=== PATIENT | female | born 1970 | race Caucasian/White ===

== ENCOUNTER 2016-08-07 10:37 | Emergency (ER) | payer MEDICARE, MEDICAID, OTHER ==
[~2016-08-07] VITALS: Ht 160 cm; Wt 115.9 kg
[~2016-08-07 10:37] MED LIST: ALBU8.5H2 INHALATION; ALPR0.254 PO; ASPI-973 PO; ATOR40TA69 PO; FLUT16SP NS; HYDR-4003 PO; HYDR25TA4 PO; INSLIS SUBQ; INSU100V4 SUBQ; LEVO112T4 PO; LISI10TA PO; PREG150C PO; VENL150T3 PO; VENL75CA95 PO
[2016-08-07 10:48] VITALS: BP 126/66; PULSE 101; RESP 12; O2SAT 98
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
[2016-08-07] MEDS ORDERED: IBUP400T22 PO (13:32)
[2016-08-07 14:43] VITALS: BP 109/55; PULSE 97; O2SAT 94
[2016-08-29] MEDS ORDERED: BENZ100C8 PO (12:04)
[2016-08-29] MEDS ORDERED: GABA600T2 PO (12:04)
== END 2016-08-07 13:33 | disposition home or self-care (01) ==
LOC: SED 10:37
DX: M54.2 Cervicalgia (principal); V43.52XA Car driver injured in collision with other type car in traffic accident, initial encounter; Y93.89 Activity, other specified; Y92.410 Unspecified street and highway as the place of occurrence of the external cause; Y99.8 Other external cause status; E11.40 Type 2 diabetes mellitus with diabetic neuropathy, unspecified; E03.9 Hypothyroidism, unspecified; I10 Essential (primary) hypertension; Z79.82 Long term (current) use of aspirin; Z79.4 Long term (current) use of insulin

== ENCOUNTER 2016-08-31 10:43 | Day surgery (SDC) | payer MEDICARE, MEDICAID ==
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
[2016-08-31] VITALS (20 sets, daily range): BP systolic 77–119; BP diastolic 38–95; PULSE 88–99; RESP 12–19; O2SAT 93–99
[~2016-08-31] VITALS: Ht 161.3 cm; Wt 110.8 kg
[~2016-08-31 10:43] MED LIST changes: +BENZ100C8 PO; +CeFAZolin Inj 2 GM in IV Premix 1 EACH IV ONE; +GABA600T2 PO; -PREG150C PO
[2016-08-31] MEDS ORDERED: Lidocaine PF 1% 30 mL Inj ONE (10:44)
[2016-08-31] MEDS ORDERED: fentaNYL-PF 50 mCg/mL 2 mL Inj ONE (10:44)
[2016-08-31] MEDS ORDERED: Glycopyrrolate 0.2 mg/mL 5 mL Inj ONE (10:44)
[2016-08-31] MEDS ORDERED: Rocuronium 10 mg/mL 5 mL Inj ONE (10:44)
[2016-08-31] MEDS ORDERED: Neostigmine 1 mg/mL 5 mL Inj ONE (10:44)
[2016-08-31] MEDS ORDERED: Propofol 10,000 mCg/mL 20 mL Inj ONE (10:44)
[2016-08-31] MEDS ORDERED: EPHEDrine/NS 5 mg/mL 5 mL Syringe ONE (10:44)
[2016-08-31] MEDS ORDERED: Phenylephrine 10,000 mCg/mL Inj ONE (10:44)
[2016-08-31] MEDS ORDERED: Ondansetron 2 mg/mL 2 mL Inj ONE (10:44)
[2016-08-31] MEDS ORDERED: CeFAZolin 2 Gm/50 mL D5W Duplex Bag IV ONE (11:17)
[2016-08-31] MEDS: Lactated Ringer's 1,000 ML IV SCH ×2 (11:46→13:48)
[2016-08-31] MEDS ORDERED: Insulin LISPRO 300 Unit/3 mL Inj ONE (11:59)
[2016-08-31] MEDS ORDERED: Insulin LISPRO 300 Unit/3 mL Inj SUBQ ONE (12:55)
[2016-08-31] MEDS ORDERED: HYDROmorphone 1 mg/mL Inj IVPUSH PRN (13:45)
[2016-08-31] MEDS ORDERED: Atropine 0.4 mg/mL Inj IVPUSH PRN (13:45)
[2016-08-31] MEDS ORDERED: hydrOXYzine Inj 25 MG/1 mL SDV IM PRN (13:45)
[2016-08-31] MEDS ORDERED: Lactated Ringer's 500 ML IV PRN (13:45)
[2016-08-31] MEDS ORDERED: hydrALAZINE 20 mg/mL Inj IVPUSH PRN (13:45)
[2016-08-31] MEDS ORDERED: fentaNYL-PF 50 mCg/mL 2 mL Inj IVPUSH PRN (13:45)
[2016-08-31] MEDS ORDERED: Lactated Ringer's 1,000 ML IV SCH (13:45)
[2016-08-31] MEDS ORDERED: EPHEDrine Sulfate 50 mg/mL Inj IVPUSH PRN (13:45)
[2016-08-31] MEDS ORDERED: Ondansetron 2 mg/mL 2 mL Inj IVPUSH PRN (13:45)
[2016-08-31] MEDS ORDERED: Labetalol 5 mg/mL 4 mL Inj IV PRN (13:45)
[2016-08-31] MEDS ORDERED: EPHEDrine Sulfate 50 mg/mL Inj IM PRN (13:45)
[2016-08-31] MEDS ORDERED: Lidocaine 2%-Epi 1:100,000 20 mL Inj NERVEBLOCK ONE (14:46)
--- NOTE | 2016-08-31 14:54 | CONS ---
[address] [address] CONSULTATION REPORT PATIENT: FILIBERTO ALBARRAN : 1970 MR#: [id number] ADMIT: 08/31/2016 JOB ID: [id number] DATE OF SERVICE: 08/31/2016 REASON FOR CONSULTATION: Difficult catheter placement. I was requested to help with catheter placement in the operating room for Dr. Torres of podiatry procedure. Nursing was unable to place a catheter. Upon arrival into the room, the patient was supine and frog-legged. It was apparent that the patient was quite obese. Her genitals were then prepped and draped in the usual sterile fashion. Parting the labia quite deeply, the urethral meatus was seen. An 18-D[place] Wellington catheter was placed under sterile technique into the patient's bladder and insufflated with 10 cc of sterile water. Clear yellow urine was seen in the Wellington catheter tubing. The catheter was placed to dependent drainage. [facility]
[2016-08-31] MEDS ORDERED: Lactated Ringer's 1,000 ML IV ONE ×2 (17:03→18:55)
[2016-08-31] MEDS ORDERED: oxyCODONE-Acetamin 5-325 mg Tablet PO PRN (17:50)
--- NOTE | 2016-08-31 18:01 | PCM.PODPO ---
Podiatry Operative Report Date of Service: Aug 31, 2016 Date of Service Aug 31, 2016 Pre Operative Diagnosis Lisfranc fracture left lower extremity Charcot foot left lower extremity Post Operative Diagnosis Same as preoperative diagnoses Procedure Open reduction with first tarsometatarsal arthrodesis Surgeon Surgeon: Meng Torres DPM Assistants: None Indication for Procedure Displaced first tarsometatarsal joint second metatarsal joint and third tarsometatarsal joint left foot with multiple metatarsal fractures Findings Stability of the second and third tarsometatarsal joint despite displacement. Severe degeneration of the medial cuneiform Details of Procedure Patient was identified in the preoperative holding area. All preoperative comorbidities and allergies were identified and thoroughly discussed. The patient was transported into the operating room and placed on the operating room table in the normal supine position. The patient was then prepped and draped in the normal aseptic technique. A preoperative block of the left ankle was performed utilizing 2% lidocaine. Attention was first pinned to the dorsal medial aspect of the left mid foot. A linear incision was made overlying the dorsal medial aspect of the first tarsometatarsal joint approximately 6 cm in length. Once the initial skin or subcutaneous neurovascular structures were identified and retracted out of the surgical field. Blunt dissection was carried down with Metzenbaum scissor. Deep fascia was identified. A 15 blade was utilized to incise through deep fascia which was reflected both superiorly and inferiorly exposing the dorsal medial aspect of the first metatarsal base the first tarsal metatarsal joint and the medial cuneiform. The tibialis anterior tendon sheath was identified and retracted proximally out of the surgical field. Inspection of the first tarsometatarsal joint revealed severe articular degeneration with no discernible articular cartilage. Multiple bony fragments were noted floating within the joint and surrounding the periarticular surface. A rongeur was utilized to remove a large portion of the displaced medial aspect of the first metatarsal base. A rongeur was utilized to remove osseous degeneration of the first tarsometatarsal joint and any remaining articular cartilage was debrided. The first metatarsal was distracted and the intercuneiform joint was debrided of fibrous scar tissue with a rongeur. Internal operative C-arm x-ray was utilized to provide visualization and a 3.5 mm cortical screw was placed in lag style fashion from the medial cuneiform to the intermediate cuneiform significant reduction of the intercuneiform joint was noted following screw fixation. Traction was applied to the first metatarsal and attempted reduction of the first tarsometatarsal joint was performed. Significant bony degeneration of the medial cuneiform was noted in the bone surrounding the articular surface was found to be soft. The first metatarsal was placed into adequate position relative to the medial cuneiform and remainder of the forefoot and K wire fixation was utilized to temporarily fixate the joint. The joint was fixated utilizing crossing 3.5 mm partially threaded screws ensuring maintain reduction and good bite. Adequate apposition of the inferior surface of the first tarsometatarsal joint was noted however there is a slight 3 mm gap of the dorsal tarsometatarsal joint due to bony degeneration. Following screw fixation this area was packed with portions of cortical bone which were removed from the medial aspect of the first metatarsal base and appeared to be healthy bleeding bone. At this time the foot was placed through range of motion and no noted gapping of the joint was noted with adequate reduction in the transverse and sagittal plane. No palpable bony prominence could be felt of the first tarsometatarsal joint plantarly. The foot was again placed through range of motion and the second and third tarsometatarsal joint were found to be stable however still significantly displaced. At this time the decision was made to postpone any further procedure to reduce this area as this patient may require a medial column fusion in the future and may not note significant benefit from reduction of the second and third tarsometatarsal joint as she suffers from severe diabetic neuropathy. This wound was copiously flushed with large amounts of normal saline. Deep closure was performed utilizing 2. 0 Vicryl and skin closure was performed utilizing number 3. 0 Prolene. The wound was dressed with Adaptic sterile 4 x 4 gauze and Kerlix the patient was placed into a mildly compressive Villavicencio sterile compression dressing. No combinations occur during this procedure. A pneumatic ankle tourniquet was utilized during this procedure for approximately 109 minutes. Grafts, Implants: Implants-See Implant Record Complications There were no periprocedural complications identified. Condition Stable Anesthetic Administered: GA Catheters: None Output, Estimated Blood Loss: 100 Blood Admin during surgery: No Surgical Cast or Splint: Well-padded Short Leg Splint Surgical Specimen Removed: No Specimen sent to Pathology: No Post Operative Plan Ice and elevate before surgery Strict nonweightbearing left lower extremity Discharge to home when stable Contact office with any questions or concerns regarding care Follow-up in office in 1 week Meng Torres DPM Aug 31, 2016 18:01
[2016-08-31] MEDS ORDERED: Phenylephrine/NS-PF 100 mCg/mL 5 mL Syringe IVPUSH ONE (18:12)
[2016-08-31] MEDS: Phenylephrine 10,000 mCg/mL Inj IVPUSH PRN ×2 (18:15→18:25)
[2016-08-31] MEDS ORDERED: Dexamethasone 4 mg/mL Inj ONE (18:24)
[2016-08-31] MEDS ORDERED: Dexamethasone 4 mg/mL Inj IVPUSH PRN (18:25)
--- NOTE | 2016-08-31 18:28 | PCM.ANEP1 ---
Post Anesthesia Phase 1 PACU Phase 1 Assessment Date of Service: Aug 31, 2016 Vital Signs Vital Signs Date Time Temp Pulse Resp B/P Pulse Ox O2 Delivery O2 Flow Rate FiO2 08/31/16 17:55 36.3 90 16 85/40 99 Nasal Cannula 2 08/31/16 11:04 35.7 99 12 91/59 99 Room Air Anesthetic Administered: GA Level of Alertness: Awake, talking BUITRAGO's with Equal Strength: Yes Pain: No Oxygen Delivery: Room Air Lungs: Clear to Auscultation, Normal Air Movement (FROM) Summary Alondra is awake and talking. No pain or N/V. She is conversant asking how her surgery went. All her vital signs are normal except for her BP is low. Both BP CUFF and A-line vary between high 80 systolic to mid 70's. HR is 91. Davian Camara MD Aug 31, 2016 18:28
--- NOTE | 2016-09-01 07:55 | PCM.ANEP2 ---
Post Anesthesia Evaluation ASA/CMS Post Anesthesia VS in Patient's Normal Range?: Yes Resp Stable; Airway Patent?: Yes CV Function & Hydration Stable: Yes Mental Status Recovered?: Yes Pain control Satisfactory?: Yes N/V Control Satisfactory?: Yes Davian Camara MD Sep 01, 2016 07:55
== END 2016-08-31 23:59 | disposition home or self-care (01) ==
LOC: SAS 10:43
PROVIDERS: ATTEND Podiatrist Foot & Ankle Surgery
PROC: 0SGL04Z Fusion of Left Tarsometatarsal Joint with Internal Fixation Device, Open Approach (ICD-10-PCS; principal; 2016-08-31 12:45)
DX: E10.610 Type 1 diabetes mellitus with diabetic neuropathic arthropathy (principal); S93.325A Dislocation of tarsometatarsal joint of left foot, initial encounter; E10.40 Type 1 diabetes mellitus with diabetic neuropathy, unspecified; Z79.4 Long term (current) use of insulin; E66.9 Obesity, unspecified; Z68.41 Body mass index [BMI] 40.0-44.9, adult; Z79.82 Long term (current) use of aspirin; E03.9 Hypothyroidism, unspecified; E78.5 Hyperlipidemia, unspecified; F41.1 Generalized anxiety disorder; X58.XXXA Exposure to other specified factors, initial encounter
CPT/HCPCS: 28740; 73620; 76001; C1713; J0690; J1100; J1815; J2250; J2370; J2405; J2710; J3010; J7120

== ENCOUNTER 2016-10-08 12:54 | Emergency (ER) | payer MEDICARE, MEDICAID ==
[~2016-10-08] VITALS: Ht 160 cm; Wt 109.1 kg
[~2016-10-08 12:54] MED LIST changes: -CeFAZolin Inj 2 GM in IV Premix 1 EACH IV ONE
[2016-10-08 13:08] VITALS: BP 136/66; PULSE 87; RESP 15; O2SAT 100
--- NOTE | 2016-10-08 14:23 | ED.REPORT ---
HPI-General Illness Date of Service Oct 08, 2016 ED Provider: Kenney Chino MD 46 year old female with a 40 year history of IDDM presents to the ER via EMS after being found unconscious in her vehicle just prior to arrival. EMS reports low blood sugar measured at the scene. She states that she awakened in the ambulance en route with no memory of the syncopal event. Patient denies recent illness, though she states that she has been stressed lately which has caused her blood sugar to decline in the past. Nursing Notes Stated Complaint: LOW BS Chief Complaint: General Complaint Nursing Notes Reviewed: Yes Allergies: Coded Allergies: No Known Allergies (Verified Allergy, Unknown, 08/29/16) Scheduled Aspirin (Aspirin) 81 Mg Tablet 81 MG PO DAILY Atorvastatin Calcium (Atorvastatin Calcium) 40 Mg Tablet 40 MG PO DAILY Benzonatate (Benzonatate) 100 Mg Capsule 100 MG PO TID Fluticasone Propionate (Fluticasone Propionate Nasal) 16 Gm [place].susp 2 SPRAY NS DAILY Gabapentin (Gabapentin) 600 Mg Tablet 1,200 MG PO BID Hydrochlorothiazide (Hydrochlorothiazide) 25 Mg Tablet 25 MG PO DAILY Insulin Detemir (Levemir U100 Insulin Vial) 100 Unit/1 Ml Vial 50 UNITS SUBQ BID Insulin Human Lispro (HumaLOG U100 Insulin Vial) 100 Unit/Ml Unit 10-30 UNITS SUBQ TIDWM Levothyroxine (Levothyroxine) 112 Mcg Tablet 125 MCG PO DAILY Lisinopril (Lisinopril) 10 Mg Tablet 10 MG PO DAILY Venlafaxine ER (Venlafaxine ER) 150 Mg Tab.er.24 150 MG PO DAILY Venlafaxine ER (Venlafaxine ER) 75 Mg Cap.er.24h 75 MG PO DAILY take together with 150mg tab Scheduled PRN Albuterol HFA (Proair HFA) 8.5 Gm Hfa.aer.ad 2 PUFFS INHALATION Q4H PRN PRN PRN Alprazolam (Alprazolam) 0.25 Mg Tablet 0.25 MG PO DAILY PRN PRN For Anxiety Hydrocodone-Acetaminophen 5-325 mg (Hydrocodone-Acetaminophen 5-325 mg) 1 Each Tablet 1 TABLET PO Q6H PRN PRN For Pain General Time Seen by MD: 14:07 Chief Complaint Other (Low Blood Sugar) Hx Obtained From: Patient Arrived By: Ambulance Sudden in Onset?: Yes Onset Occurred: Just prior to arrival Symptom Duration: Since onset Pertinent Negative: Pt denies other symptoms Context Related History: Reports Diabetes mellitus Similar Sx Previous: Yes Past Medical History Past Medical History Notes: frequent ED visits for uncontrolled blood sugar, both hypoglycemia and hyperglycemia, and diabetic ulcers. Past Medical History diabetic ulcers diabetic neuropathy hidradenitis hypothyroidism depression anxiety dyslipidemia Reports: Diabetes mellitus, Hypertension Reports: Obesity Past Surgical History Surgery in June 2015 for infected diabetic ulcer Smoking History Unknown if Ever Smoker Social History Drug Use: Denies drug use Other Social History: Good social support, Local resident Ambulatory Status Independent Review of Systems Full Review of Systems Constitutional: Denies: Chills, Fever Respiratory: Denies: Non-productive cough, Shortness of breath Cardiovascular: Denies: Chest pain GI: Denies: Diarrhea, Nausea, Vomiting Female: Denies: Dysuria, Flank pain, Hematuria, Urinary frequency, Urinary urgency, Urination decreased, Urination increased Neurologic: Reports: Syncope Complete sys rev & neg: except as marked. Physical Exam BP 149/79 Vital Signs Vital Signs Date Time Temp Pulse Resp B/P Pulse Ox O2 Delivery O2 Flow Rate FiO2 10/08/16 13:08 87 15 136/66 100 Room Air Initial VS: Reviewed Head / Eyes: Atraumatic, Normocephalic Neck: Supple, Non-tender, Full range of motion Abdomen / GI: Soft, Non-tender, No guarding, No rebound, No distention Extremities: Vascular intact, Neuro intact, No swelling, No tenderness Skin: Warm, Dry, No cyanosis Neurologic: Alert, Oriented, Nonfocal Psychiatric: Mood/affect normal, Behavior normal, Normal thought content General/Constitutional: Awake, Alert, Well developed, Well nourished Respiratory / Chest: Breath sounds NL, No respiratory distress, No rales, No rhonchi, No wheezing Cardiovascular: Heart rate NL, Regular rhythm, Heart sounds NL, Cap refill not delayed, Peripheral circulation NL Re-Eval/Medical Decision Med Decision/Clinical Course She is awake and alert at this time she has no residual symptoms. She says that she gets like this from time to time and is not concerned that she will be able to manage it at home with someone at home to make sure she is okay. It seems reasonable to me. Source of Hx: Old records Time of Eval: 14:28 Re-Evaluation/Progress Note: Discussed physical exam findings and plan to discharge. Patient is amenable to the plan. Return precautions given. All other questions addressed. Counseled Regarding: Diagnosis, Need for follow-up, When/why to return to ED Discharge & Departure Primary Impression: Hypoglycemia Disposition: Home Discharge Condition All VS Reviewed: Yes Condition: Stable Patient Instructions: Diabetic Hypoglycemia (DC) Additional Instructions: I think it is safe at this time for you to go home. Make sure you monitor your blood sugar levels. You should not be alone for the next 24 hours. Return to the ER if you develop any concerning symptoms. Referrals: Chiqui Dalal (PCP) Donnaibe Attestation Portions of this note were transcribed by Luke Mann. I, Dr. Chino, personally performed the history, physical exam and medical decision-making; I reviewed and confirmed the accuracy of the information in the transcribed note. Signed by: Karley Islas, 10/08/2016 and 14:31 copies to: Chiqui Dalal Kirk H MD Oct 08, 2016 14:23 LUKE MANN Oct 08, 2016 14:30
[2016-10-08 14:58] VITALS: BP 137/61; PULSE 95; RESP 19; O2SAT 100
== END 2016-10-10 14:58 | disposition home or self-care (01) ==
LOC: SED 12:54 → EDUNIT# 12:54 → EDBD 12:54 → SED 10-10 14:58
DX: E11.649 Type 2 diabetes mellitus with hypoglycemia without coma (principal); I10 Essential (primary) hypertension; E11.40 Type 2 diabetes mellitus with diabetic neuropathy, unspecified; E11.622 Type 2 diabetes mellitus with other skin ulcer; L98.499 Non-pressure chronic ulcer of skin of other sites with unspecified severity; E03.9 Hypothyroidism, unspecified; Z79.82 Long term (current) use of aspirin; Z79.4 Long term (current) use of insulin

== ENCOUNTER 2016-12-24 15:51 | Emergency (ER) | payer MEDICARE, MEDICAID ==
[~2016-12-24] VITALS: Ht 160 cm; Wt 101.4 kg
--- NOTE | 2016-12-24 15:53 | ED.REPORT ---
HPI-General Illness Date of Service December 24, 2016 ED Provider: Dr. Cruz Sesay MD Patient is a 46 year old female with a history of type I diabetes mellitus, frequent ED visits for hypoglycemia, diabetic ulcers and neuropathy, hidradenitis, hypothyroidism and dyslipidemia who presents to the ED via EMS following an episode of dizziness that occurred just prior to arrival. Patient was sitting in the waiting room at the dentist's office when she experienced an episode of hypoglycemia and had a near-syncopal event. She reports that she took an extra dose on insulin this morning and had not eaten for several hours prior to the appointment. EMS recorded BS in the 20's in the field. Patient received oral glucose and a glucagon tab en route. Patient was seen in the ED on 10/08 for a similar symptoms and this episode reportedly feels identical to her previous episodes of hypoglycemia. She was being seen at the dentist for dental caries and an abscess that has become increasingly worse over the past few days. Nursing Notes Stated Complaint: HYPOGLYCEMIA Chief Complaint: General Complaint Nursing Notes Reviewed: Yes Allergies: Coded Allergies: No Known Allergies (Verified Allergy, Unknown, 08/29/16) Scheduled Amoxicillin/Clav K 875-125 mg (Augmentin 875-125 mg) 1 Each Tablet 1 TABLET PO BID Aspirin (Aspirin) 81 Mg Tablet 81 MG PO DAILY Atorvastatin Calcium (Atorvastatin Calcium) 40 Mg Tablet 40 MG PO DAILY Benzonatate (Benzonatate) 100 Mg Capsule 100 MG PO TID Fluticasone Propionate (Fluticasone Propionate Nasal) 16 Gm [place].susp 2 SPRAY NS DAILY Gabapentin (Gabapentin) 600 Mg Tablet 1,200 MG PO BID Hydrochlorothiazide (Hydrochlorothiazide) 25 Mg Tablet 25 MG PO DAILY Insulin Detemir (Levemir U100 Insulin Vial) 100 Unit/1 Ml Vial 50 UNITS SUBQ BID Insulin Human Lispro (HumaLOG U100 Insulin Vial) 100 Unit/Ml Unit 10-30 UNITS SUBQ TIDWM Levothyroxine (Levothyroxine) 112 Mcg Tablet 125 MCG PO DAILY Lisinopril (Lisinopril) 10 Mg Tablet 10 MG PO DAILY Venlafaxine ER (Venlafaxine ER) 150 Mg Tab.er.24 150 MG PO DAILY Venlafaxine ER (Venlafaxine ER) 75 Mg Cap.er.24h 75 MG PO DAILY take together with 150mg tab Scheduled PRN Albuterol HFA (Proair HFA) 8.5 Gm Hfa.aer.ad 2 PUFFS INHALATION Q4H PRN PRN PRN Alprazolam (Alprazolam) 0.25 Mg Tablet 0.25 MG PO DAILY PRN PRN For Anxiety Hydrocodone-Acetaminophen 5-325 mg (Hydrocodone-Acetaminophen 5-325 mg) 1 Each Tablet 1 TABLET PO Q6H PRN PRN For Pain General Time Seen by MD: 15:53 Chief Complaint Dizziness Hx Obtained From: Patient, EMS Arrived By: Ambulance Sudden in Onset?: Yes Onset Occurred: Just prior to arrival Symptom Duration: Since onset Location: : Mouth (Dental pain) Quality: Painful Radiation: : Does not radiate Severity: Current: Mild Severity: Maximum: Mild Associated with: Reports: Dizziness, Syncope (near ) Pertinent Negative: Pt denies other symptoms Recent Healthcare: No recent doctor visit, No recent hospitalization Past Medical History Past Medical History Notes: Frequent ED visits for uncontrolled blood sugar, both hypoglycemia and hyperglycemia, and diabetic ulcers. Past Medical History diabetic ulcers diabetic neuropathy hidradenitis hypothyroidism depression anxiety dyslipidemia Reports: Diabetes mellitus, Hypertension Reports: Obesity Past Surgical History Surgery in June 2015 for infected diabetic ulcer Smoking History Unknown if Ever Smoker Social History Drug Use: Denies drug use Other Social History: Good social support, Local resident Ambulatory Status Independent Review of Systems dental pain Full Review of Systems Constitutional: Denies: Chills, Fever Respiratory: Denies: Shortness of breath Neurologic: Reports: Dizziness, Syncope (Near syncope ) Complete sys rev & neg: except as marked. Physical Exam Vital Signs Vital Signs Date Time Temp Pulse Resp B/P Pulse Ox O2 Delivery O2 Flow Rate FiO2 12/24/16 18:02 36.8 94 16 136/58 100 Room Air 12/24/16 16:02 36.6 87 13 107/51 100 Room Air Initial VS: Reviewed Neck: Supple, Non-tender, Full range of motion Extremities: Vascular intact, Neuro intact, No swelling, No tenderness Skin: Warm, Dry, No cyanosis Neurologic: Alert, Oriented, Nonfocal Psychiatric: Mood/affect normal, Behavior normal, Normal thought content General/Constitutional: Awake, Alert, No acute distress Appearance / Presentation: Positive: Obese Head / Eyes: Atraumatic, Normocephalic, PERRL ENT: Atraumatic, Airway patent, Mucous membranes moist, Pharynx NL Dental / Gums: Positive: Dental caries present (Multiple caries present and multiple craters present) ENT: No facial swelling No trismus #6: crater at the gumline with pus draining Respiratory / Chest: Atraumatic, Breath sounds NL, Breath sounds = bilat, No respiratory distress Cardiovascular: Heart rate NL, Regular rhythm, Heart sounds NL Abdomen: Atraumatic, Soft, Non-tender Interpretation & Diagnostics Lab Results Interpretation Test 12/24/16 16:16 Hold Purple Top Tube Received (Received) Hold Red Top Tube Received (Received) Hold [place] Top Tube Received (Received) Re-Eval/Medical Decision Med Decision/Clinical Course Hypoglycemia due to overuse of insulin without eating. Incidentally she has a dental infection with some drainage, I do not see an obvious periapical abscess that would require incision and drainage. She will be started on Augmentin. Her glucoses have been stable for several hours. She feels comfortable going home. Recommend frequent small meals and follow-up closely with dentist and PCP. Return precautions given. Time of Eval: 16:05 Patient Status: Condition improved Re-Evaluation/Progress Note: Patient is rechecked. Symptoms have improved. Will repeat BS. Time of Eval: 17:39 Patient Status: Condition improved Re-Evaluation/Progress Note: Pt is informed of her results and diagnosis. All questions are addressed. She understands and agrees with the intended treatment plan. Counseled Regarding: Diagnosis, Need for follow-up, When/why to return to ED Discharge & Departure Primary Impression: Hypoglycemia Additional Impression: Dental abscess Disposition: Home Discharge Condition All VS Reviewed: Yes Condition: Improved Patient Instructions: Dental Abscess (ED), Dental Caries (ED), Hypoglycemia in a Person with Diabetes (ED) Additional Instructions: Thank you for trusting us with your care this afternoon. Your emergency department evaluation today evaluation indicates your symptoms are likely to do hypoglycemia. This is most likely due to taking an extra dose of your insulin and then not eating today. Please take Augmentin as directed and follow up with your dentist in the next few days to help resolve your dental caries and dental abscess. Schedule a follow up appointment with your primary care physician in the next 2-3 days for a recheck. Please return to the emergency department if you begin to experience any new or worsening symptoms including any sings of infection (fever, chills, swelling, redness, worsening pain), dizziness, shortness of breath or chest pain. Referrals: Chiqui Dalal (PCP) Scribe Attestation Portions of this note were transcribed by Irene Mauro. I, Dr. Sesay personally performed the history, physical exam and medical decision-making; I reviewed and confirmed the accuracy of the information in the transcribed note. Signed by: Karley Jackson, 12/24/16 1968. copies to: Chiqui Dalal Timothy S DO December 24, 2016 15:53 IRENE MAURO December 24, 2016 16:00
[2016-12-24 16:02] VITALS: BP 107/51; PULSE 87; RESP 13; O2SAT 100
[2016-12-24] MEDS ORDERED: Amoxicillin-Clav 875-125 mg Tablet PO ONE (16:25)
[2016-12-24] MEDS ORDERED: AMOX-366 PO (17:45)
[2016-12-24 18:02] VITALS: BP 136/58; PULSE 94; RESP 16; O2SAT 100
[2016-12-24 18:42] VITALS: BP 136/58; PULSE 94; RESP 16; O2SAT 100
== END 2016-12-24 18:44 | disposition home or self-care (01) ==
LOC: EDBD 15:51 → SED 15:51
DX: E10.649 Type 1 diabetes mellitus with hypoglycemia without coma (principal); K04.7 Periapical abscess without sinus; E03.9 Hypothyroidism, unspecified; E78.5 Hyperlipidemia, unspecified; E10.40 Type 1 diabetes mellitus with diabetic neuropathy, unspecified; I10 Essential (primary) hypertension; Z79.82 Long term (current) use of aspirin; Z79.4 Long term (current) use of insulin

== ENCOUNTER 2017-03-20 14:19 | Inpatient (IN) | payer MEDICARE, MEDICAID ==
[~2017-03-20] VITALS: Ht 160 cm; Wt 105.2 kg
[~2017-03-20 14:19] MED LIST changes: +AMOX-366 PO
[2017-03-20 14:44] VITALS: BP 125/78; PULSE 109; RESP 20; O2SAT 97
--- NOTE | 2017-03-20 15:41 | ED.REPORT ---
HPI-Extremity Problem Lower Date of Service Mar 20, 2017 ED Provider: Germania Crandall MD Patient is a 46 year old female with a history of diabetes who presents to the ED complaining of right foot pain for the past three days. Associated symptoms include right foot erythema, swelling, subjective fever and fatigue. Patient reports that she has noticed the white callous on her foot as well, three days ago. She denies nausea. 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 The patient reports that she has had a previous skin infection in her foot two years ago that required surgery. Nursing Notes Stated Complaint: RT FOOT ABSCESS Chief Complaint: Extremity Trauma Nursing Notes Reviewed: Yes Allergies: Coded Allergies: No Known Allergies (Verified Allergy, Unknown, 03/20/17) Scheduled Aspirin (Aspirin) 81 Mg Tablet 81 MG PO DAILY Fluticasone Propionate (Fluticasone Propionate Nasal) 16 Gm [place].susp 2 SPRAY NS DAILY Gabapentin (Gabapentin) 600 Mg Tablet 1,200 MG PO TID Hydrochlorothiazide (Hydrochlorothiazide) 25 Mg Tablet 25 MG PO DAILY Insulin Detemir (Levemir U100 Insulin Vial) 100 Unit/1 Ml Vial 50 UNITS SUBQ BID Insulin Human Lispro (HumaLOG U100 Insulin Vial) 100 Unit/Ml Unit 10-30 UNITS SUBQ TIDWM Levothyroxine (Levothyroxine) 125 Mcg Tablet 125 MCG PO DAILY Venlafaxine ER (Venlafaxine ER) 150 Mg Tab.er.24 150 MG PO DAILY Venlafaxine ER (Venlafaxine ER) 75 Mg Cap.er.24h 75 MG PO DAILY take together with 150mg tab Scheduled PRN Albuterol HFA (Proair HFA) 8.5 Gm Hfa.aer.ad 2 PUFFS INHALATION Q4H PRN PRN PRN Alprazolam (Alprazolam) 0.25 Mg Tablet 0.25 MG PO DAILY PRN PRN For Anxiety General Time Seen by MD: 15:38 Chief Complaint Foot injury right Hx Obtained From: Patient Arrived By: Walk-in Onset Occurred: 3 days ago Symptom Duration: Since onset Location: : Foot right Quality: Painful Severity: Current: Moderate Recent Healthcare: Recent doctor visit Past Medical History Past Medical History Notes: Frequent ED visits for uncontrolled blood sugar, both hypoglycemia and hyperglycemia, and diabetic ulcers. Past Medical History diabetic ulcers diabetic neuropathy hidradenitis hypothyroidism depression anxiety dyslipidemia Reports: Diabetes mellitus, Hypertension Reports: Obesity Past Surgical History Surgery in June 2015 for infected diabetic ulcer Smoking History Unknown if Ever Smoker Social History Drug Use: Denies drug use Other Social History: Good social support, Local resident Ambulatory Status Independent Review of Systems Constitutional: Reports: Fatigue, Fever (subjective), Denies: Chills Musculoskeletal: Reports: Extremity pain (right foot), Extremity swelling ( right foot) Skin: Denies Itching Neurologic: Denies: Numbness, Weakness Complete sys rev & neg: except as marked. Respiratory: Denies: Non-productive cough, Shortness of breath Physical Exam Initial Vital Signs Vital Signs (First) Date Time Temp Pulse Resp B/P Pulse Ox O2 Delivery O2 Flow Rate FiO2 03/20/17 14:44 37.8 109 20 125/78 97 Room Air Initial VS: Reviewed Lower Extremity / Pelvis / MS: Atraumatic, Inspection NL Right Foot: Positive: Erythema present (10cm x 7cm on the dorsum), Swelling present..., Tenderness present... 1cm circular ulceration on the right foot no fluctuance or pus no crepitus General/Constitutional: Awake, Alert Respiratory / Chest: Atraumatic, Breath sounds NL, Breath sounds = bilat, No respiratory distress Cardiovascular: Heart rate NL, Regular rhythm, Heart sounds NL, No murmurs Skin: Warm, Dry Neurologic: Oriented X3, Speech NL Head / Eyes: Atraumatic, Normocephalic, PERRL, EOMI Upper Extremity / MS: Atraumatic, Full range of motion Psychiatric: Affect NL, Mood NL Interpretation & Diagnostics Lab Results Interpretation Result Diagram: 03/20/17 1635 03/20/17 1635 Test 03/20/17 16:35 White Blood Count 19.9th/mm3 (3.8-10.1) Red Blood Count 4.60mil/mm3 (3.90-5.20) Hemoglobin 12.5g/dL (12.0-15.6) Hematocrit 39.2% (35.0-46.0) Mean Corpuscular Volume 85.2fL (81-100) Mean Corpuscular Hemoglobin 27.2pg (27.0-35.0) Mean Corpuscular Hemoglobin Concent 31.9% (32.0-37.0) Red Cell Distribution Width 15.0% (12.3-15.4) Platelet Count 459bil/L (150-400) Neutrophils (%) (Auto) 77.5% (40-74) Lymphocytes (%) (Auto) 12.6% (14-46) Monocytes (%) (Auto) 7.3% (4-12) Eosinophils (%) (Auto) 1.6% (0-5) Basophils (%) (Auto) 0.3% (0-3) Sodium Level 133mEq/L (134-144) Potassium Level 4.7mEq/L (3.5-5.2) Chloride Level 92mEq/L (97-108) Carbon Dioxide Level 26mmol/L (18-29) Blood Urea Nitrogen 15mg/dL (6-24) Creatinine 0.82mg/dL (0.57-1.00) Estimat Glomerular Filtration Rate 107mL/min (>59) Glucose Level 118mg/dL (60-99) Lactic Acid Level 1.8mmol/L (0.4-2.0) Calcium Level 9.3mg/dL (8.5-10.1) Total Bilirubin 0.3mg/dL (0.0-1.2) Aspartate Amino Transf (AST/SGOT) 61U/L (0-50) Alanine Aminotransferase (ALT/SGPT) 75U/L (0-32) Alkaline Phosphatase 639U/L (25-150) Total Protein 8.2g/dL (6.4-8.4) Albumin 4.0g/dL (3.4-5.0) Procalcitonin 0.20ng/mL (0.00-0.08) Re-Eval/Medical Decision Med Decision/Clinical Course 46-year-old female with foot infection and ulceration with diabetes. Patient has 2 sutures criteria with tachycardia and elevated white blood cell count consistent with sepsis. She is however a well-appearing without signs of end organ damage. She was treated with 1 L of IV fluid given these reassuring findings, she was given IV vancomycin and meropenem per recommendations from this hospital's formulary and pharmacist. Normal Re-Evaluation/Progress : Time of Eval: 18:29 Re-Evaluation/Progress Note: Discussed results and plan for admit. Patient understands and agrees to plan. All questions were addressed. Consultation : Referral / Consult Name: Jeaneth Fulton MD Consulted With: Hospitalist Call Returned at: 19:27 Aircraft Design Engineer: Agrees with eval, Agrees with plan, Accepts admit Counseled Regarding: Diagnosis, Lab results, Need for admission Discharge & Departure Impression: Primary Impression: Diabetic infection of left foot Disposition: ADMITTED TO HOSPITAL Discharge Condition All VS Reviewed: Yes Condition: Stable Referrals: Chiqui Dalal (PCP) Karley Attestation Portions of this note were transcribed by Helen Chapin. I, Dr. Crandall personally performed the history, physical exam and medical decision-making; I reviewed and confirmed the accuracy of the information in the transcribed note. Signed by: Karley Hensley, 03/20/17 copies to: Chiqui Dalal Sarah C MD Mar 20, 2017 15:41 Bev Chapin Mar 20, 2017 16:02
[2017-03-20 16:49] LABS: BASOPHILS % (AUTO) 0.3 % (0-3); EOSINOPHILS % (AUTO) 1.6 % (0-5); MONOCYTES % (AUTO) 7.3 % (4-12); Mean Corpuscular Hemoglobin 27.2 pg (27.0-35.0); Mean Corpuscular Volume 85.2 fL (81-100); NEUTROPHILS % (AUTO) 77.5 % (40-74); Platelet Count 459 bil/L (150-400)
[2017-03-20 17:33] VITALS: BP 135/80; PULSE 109; O2SAT 99
[2017-03-20] MEDS ORDERED: Vancomycin Dose per Pharmacist XX ONE (18:30)
[2017-03-20] MEDS ORDERED: 0.9% Sodium Chloride 1,000 ML IV ONE (18:35)
[2017-03-20] MEDS ORDERED: Meropenem Inj 1,000 MG in 0.9% Sodium Chloride 100 ML IV ONE (18:45)
[2017-03-20] MEDS ORDERED: Vancomycin Inj 2,000 MG in 0.9% Sodium Chloride 500 ML IV ONE (18:50)
[2017-03-20 19:10] VITALS: BP 137/66; PULSE 96; O2SAT 97
[2017-03-20] MEDS ORDERED: Alum-Mag Hydrox-Simeth 30 mL Suspension PO PRN ×2 (19:35→20:35)
[2017-03-20] MEDS ORDERED: Ondansetron 2 mg/mL 2 mL Inj IVPUSH PRN ×2 (19:35→20:35)
[2017-03-20] MEDS ORDERED: LEVO125T6 PO (20:05)
[2017-03-20] MEDS ORDERED: 0.9% Sodium Chloride 1,000 ML IV SCH (20:31)
[2017-03-20] MEDS ORDERED: Polyethylene Glycol (PEG) 17 Gm Powder PO PRN (20:35)
[2017-03-20] MEDS ORDERED: INSULIN DETEMIR 50 UNIT SUBQ SCH (21:05)
[2017-03-20] MEDS ORDERED: Albuterol 2.5 mg/3 mL Inhalation Solution NEB PRN (21:10)
--- NOTE | 2017-03-20 21:12 | PCM.HPMED ---
Subjective Date of Service Mar 20, 2017 Primary Provider: Admitting Physician: Primary Care Physician: Chiqui Dalal Attending Physician: Chief Complaint: Right foot pain History of Present Illness: Alondra Hamm is a 46-year-old woman with history diabetes type I, insulin using , who presents after 1 day of worsening right foot pain. She describes it as an abrupt pain in her right foot last night I that continued to get worse, without resolve today. "I cried through the night because of the pain" today she noticed that the lateral portion of her right foot had become opened and was draining red fluid. She reports having a similar injury to her left foot in the past that required surgical debridement. She recently had an x-ray performed, 6 days ago, which showed possible developing Charcot joint. She denies any fevers, chills, or dizziness. She endorses some lightheadedness occasionally. No chest pain, shortness of breath, rashes elsewhere on her body , no nausea vomiting or diarrhea no constipation, no headaches or changes in vision. She has been able to eat and void appropriately, no dysuria or change in frequency. Presentation: 37.6 Celsius, 109, 20, 125/78, 97% on room air White count 19.9, hemoglobin 12.5, platelets 459, neutrophils 77.5% Sodium 133, chloride 92, glucose 118, lactic acid 1.8, AST/ALT 61/75 respectively, alkaline phosphatase 639 New x-ray pending Patient was given fluids, started on antibiotics, case discussed with podiatry instrument person, Dr. Kadeem Bond, agreed to see patient in the morning. Review of Systems: A comprehensive review of systems was conducted with the patient and found to be negative except as above in the history of presenting illness. Allergies Coded Allergies: No Known Allergies (Verified Allergy, Unknown, 03/20/17) Home Medications Amoxicillin/Clav K 875-125 mg (Augmentin 875-125 mg) 1 Each Tablet 1 TABLET PO BID Aspirin (Aspirin) 81 Mg Tablet 81 MG PO DAILY Atorvastatin Calcium (Atorvastatin Calcium) 40 Mg Tablet 40 MG PO DAILY Benzonatate (Benzonatate) 100 Mg Capsule 100 MG PO TID Fluticasone Propionate (Fluticasone Propionate Nasal) 16 Gm [place].susp 2 SPRAY NS DAILY Gabapentin (Gabapentin) 600 Mg Tablet 1,200 MG PO BID Hydrochlorothiazide (Hydrochlorothiazide) 25 Mg Tablet 25 MG PO DAILY Insulin Detemir (Levemir U100 Insulin Vial) 100 Unit/1 Ml Vial 50 UNITS SUBQ BID Insulin Human Lispro (HumaLOG U100 Insulin Vial) 100 Unit/Ml Unit 10-30 UNITS SUBQ TIDWM Levothyroxine (Levothyroxine) 112 Mcg Tablet 125 MCG PO DAILY Lisinopril (Lisinopril) 10 Mg Tablet 10 MG PO DAILY Venlafaxine ER (Venlafaxine ER) 150 Mg Tab.er.24 150 MG PO DAILY Venlafaxine ER (Venlafaxine ER) 75 Mg Cap.er.24h 75 MG PO DAILY take together with 150mg tab Scheduled PRN Albuterol HFA (Proair HFA) 8.5 Gm Hfa.aer.ad 2 PUFFS INHALATION Q4H PRN PRN PRN Alprazolam (Alprazolam) 0.25 Mg Tablet 0.25 MG PO DAILY PRN PRN For Anxiety PMH diabetic ulcers diabetic neuropathy hidradenitis hypothyroidism depression anxiety dyslipidemia Reports: Diabetes mellitus, Hypertension Reports: Obesity Surgical History C-sections 3 Left foot surgical debridement 2014 Family History Mother: Alive, anorexia Father: at 59 years old. Diabetes unknown type, from what sounds like sepsis Social History Hx Alcohol Use: No Hx Substance Use: No Hx Tobacco Use: No Smoking Status: Unknown if Ever Smoker Exam Vital Signs Vital Sign - Last Date Time Temp Pulse Resp B/P Pulse Ox O2 Delivery O2 Flow Rate FiO2 03/20/17 19:10 96 137/66 97 Room Air 03/20/17 14:44 37.8 20 Exam General: Laying in bed, no apparent distress. HEENT: Normocephalic, atraumatic, EOMI grossly, his membranes moist, poor dentition, neck supple without lymphadenopathy, conjunctiva pink Cardiovascular: Regular rate and rhythm, no clicks murmurs rubs, peripheral pulses 2/4 equal bilaterally Pulmonary: Clear to auscultation bilaterally, no W/R/R. Abdominal: Soft to palpation, bowel sounds present 4, no hepatosplenomegaly. Negative rebound. Extremities: There is a boot to the left lower extremity. Right foot is swollen , red, warm, there is an open ulcer on the lateral portion roughly the head of the fifth metatarsal, wound is oozing red fluid, but is hemostatic. Right lower extremity is tender from the tip of her toe up to her right knee. Neuro: Neurologically grossly intact, strength is equal bilaterally upper and lower extremities. Reports decreased sensation in the distal lower extremities. MSK: Able to move extremities on their own volition, strength 5 out of 5 equal bilaterally to upper and lower extremities. Lymphatic: Unable to appreciate inguinal lymph nodes Dermatologic: As above, additionally no lacy ribbon streaks are seen, unable to palpate cords, Lab and Diagnostics Result Diagram: 03/20/17 1635 03/20/17 1635 X-Rays, CTs and MRIs Three-view right foot x-ray, nonweightbearing Do not appreciate any hyperlucency, air, fracture of the bones or soft tissue. Please refer to official read morning of 03/21/2017 Assessment & Plan 46-year-old woman with history of diabetes type I insulin using, hypertension, anxiety, left foot infection requiring debridement presents after 1 day of worsening right foot pain, and the presence of opening ulcer on her right foot. She is septic and admitted for antibiotics, fluid, and further evaluation by TOBY. Acute sepsis, present on admission, active Temperature 37.8, 109, respirations 20, WBCs 19.9, source right foot cellulitis and ulcer Blood cultures drawn Normal saline 125 mL per hour Lactic acid was normal Blood pressure is stable Treatment of diabetic ulcer and right foot cellulitis as below Acute Right foot diabetic ulcer, present on admission, active Patient denies any trauma, occurred after resin's of pain and redness and swelling Right foot x-ray now, compare with previous on 03/14/2017 - Pending Culture and sensitivity Podiatry, Dr. Kadeem Bond DPM contacted, agreed to see patient tomorrow. Patient sees Dr. Torres regularly. Acute Right foot cellulitis present on admission, active Red, warm, painful right foot Vancomycin, Zosyn Culture and sensitivity as above X-ray as above Acute leukocytosis, present on admission, active WBCs nearly 20, attributed to infection of right foot dermis Antibiotics and fluid as above Reassess with a.m. labs Acute transaminitis, present on admission, active ALT and AST both elevated, review of history does not show previous elevations Acute hepatitis panel Possibly due to dehydration, shock liver unlikely given stable blood pressure Avoid hepatic toxic medications at this time, such as acetaminophen. Reassess with a.m. labs Acute on chronic Elevated alkaline phosphatase, present on admission, active Alkaline phosphatase appears routinely elevated, however not as high as greater than 600 as it is today Possibly due to dehydration, but developing cholecystitis or biliary process may be brewing. IV fluids as above Reassess with a.m. labs Acute Hyponatremia, present on admission, active Serum sodium mildly decreased to 133 IV fluids as above Reassess with a.m. labs Acute Hypochloremia, present on admission, active Serum chloride 92 IV fluids as above Reassess with a.m. labs Chronic Type I diabetes, insulin using, present on admission, stable Patient's glucose at time of ER visit was 118, uses Humalog and Levemir Continue home insulin regimen as it appears to be relatively well controlled Hemoglobin A1c ordered Diabetic diet Chronic anxiety, present on admission, stable Continue home venlafaxine Patient admitted to inpatient status with anticipated length of stay greater than 2 midnights, based on diagnosis, complexity of treatment, risk of adverse events. DVT prophylaxis with subcutaneous heparin Pain management oxycodone and ibuprofen GI prophylaxis not indicated CODE STATUS: DNR/DNI, discussed with patient at bedside, clarified her understanding of what that means, she stated she understands completely, and "just let me go." Pain Evaluation: Pain not Controlled GI Prophylaxis: Not indicated VTE Prophylaxis: Sub-Q Heparin (Unfractionated) Resuscitation Status: DNR/DNI:Do Not Resuscitate/Intubate Attending Statement Patient has been seen and examined by myself with medical office receptionist assistant and agree with above history, physical, assessment and plan. Lyle Mccrary DO Mar 20, 2017 21:12 Jeaneth Fulton MD Mar 21, 2017 06:36
[2017-03-20] MEDS ORDERED: Piperacillin-Tazo 3.375 Gm Inj 3.375 GM in Dextrose 5% Minibag Plus 50 ML IV ONE (21:30)
[2017-03-20] MEDS ORDERED: ALPRAZolam 0.25 mg Tablet PO PRN (21:50)
--- NOTE | 2017-03-20 21:53 | PCM.CONPHA ---
Assessment/Plan Assessment/Plan Pharmacy Kinetic Dosing Vancomycin Indication: DIABETIC FOOT Vanc goal trough: 10-15 mcg/mL Pt wt:107 kg Other ABX:ZOSYN Cultures: Blood PENDING SCr: 0.82 mg/dL Assessment/Plan: - Loading dose of Vancomycin 2000 mg given in ED -Will continue Vancomycin 1500 mg Q12H with trough scheduled prior to 4th dose on @0730 Pharmacy appreciates consult and will continue to monitor. Nicolasa Zavala PharmD Mar 20, 2017 21:53
[2017-03-20] MEDS ORDERED: Glucose 40% Oral Gel 15 Gm Tube PO PRN (21:55)
[2017-03-20] MEDS ORDERED: Dextrose 10% 250 ML IV PRN (21:55)
[2017-03-20 21:56] VITALS: BP 152/70; PULSE 104; RESP 20; O2SAT 93
[2017-03-20 22:24] LABS: APPEARANCE,URINE HAZY (CLEAR,HAZY); COLOR,URINE YELLOW (YELLOW); OCCULT BLOOD,URINE NEGATIVE (NEGATIVE); PH,URINE 5.5 (5.0-8.0)
[2017-03-20 22:38] VITALS: BP 128/94; PULSE 109; RESP 20; O2SAT 92
[2017-03-20] MEDS: 0.9% Sodium Chloride 1,000 ML IV SCH (22:40)
[2017-03-20] MEDS ORDERED: 0.9% Sodium Chloride 250 ML ONE (23:38)
[2017-03-20] MEDS: Insulin GLARgine 100 Unit/mL Syringe SUBQ SCH (23:50)
[2017-03-21] MEDS: Heparin 5,000 Unit/mL Inj SUBQ SCH ×3 (00:10→16:39)
[2017-03-21] MEDS: Sodium Chloride LOK Flush 10 mL Syringe IVFLUSH SCH ×3 (00:10→16:38)
[2017-03-21] MEDS ORDERED: Insulin Human NPH 100 Unit/mL 3 mL Inj SUBQ ONE (02:40)
--- NOTE | 2017-03-21 03:35 | NUR ---
Noc/blood sugar pt arrived on floor. Pt had a blood sugar of 325 upon arrival on the floor administered 50units of lantus. Denies chest pain, sob, n/v or abd discomfort. Right leg covered with dressing. 0235 pt had a sugar level of 369. ordered NPH insulin 10units for coverage. IVF NS running 125ml/hr as ordered. IV ABx administered as scheduled. Continuing to monitor. Addendum: 03/21/17 at 0553 by FRANCHESCA ALMAGUER RN Dressings change on pt's right lateral foot. wet-dry dressing.
[2017-03-21 04:36] VITALS: BP 110/73; PULSE 74; RESP 18; O2SAT 92
[2017-03-21 05:52] LABS: BASOPHILS % (AUTO) 0.3 % (0-3); EOSINOPHILS % (AUTO) 2.5 % (0-5); MONOCYTES % (AUTO) 7.5 % (4-12); Mean Corpuscular Hemoglobin 27.6 pg (27.0-35.0); Mean Corpuscular Volume 86.5 fL (81-100); NEUTROPHILS % (AUTO) 71.7 % (40-74); Platelet Count 378 bil/L (150-400)
[2017-03-21 07:22] LABS: Magnesium 2.4 mg/dL (1.6-2.6); Phosphorus 4.4 mg/dL (2.5-4.9)
--- NOTE | 2017-03-21 08:08 | DRSVH ---
PROCEDURE: X-RAY RIGHT FOOT COMPLETE, MINIMUM THREE VIEWS ([id number]) INDICATIONS: Eval for gas/nec fasc/osteo TECHNIQUE: 3 views of the foot were acquired. COMPARISON: None. FINDINGS: Bones: No fractures or dislocations. No suspicious bony lesions. Soft tissues: No tibiotalar joint effusion. Achilles tendon appears normal. IMPRESSION: No acute fracture. No osseous lesion. No evidence of soft tissue gas by plain film. If s ymptoms and/or clinical suspicion for pathology persist, further assessment with repeat, or advanced imaging (e.g., CT, MRI, or bone scan) may be helpful for further assessment. Dictated by: Maylin Winn M.D. on 03/21/2017 at 8:05 Approved by: Maylin Winn M.D. on 03/21/2017 at 8:06
[2017-03-21] MEDS: Vancomycin Dose per Pharmacist XX SCH (08:30)
[2017-03-21] MEDS ORDERED: Non-Formulary Medication (Venlafaxine ER 150 MG) PO SCH (08:30)
[2017-03-21 08:58] VITALS: BP 121/75; PULSE 80; RESP 16; O2SAT 95
[2017-03-21] MEDS: Fluticasone 0.05% 15 Spray/2 Gm 16 Gm Nasal Spray NOSTRIL SCH (09:05)
[2017-03-21] MEDS: Venlafaxine XR 75 mg ER24 Capsule PO SCH (09:07)
[2017-03-21] MEDS: Insulin GLARgine 100 Unit/mL Syringe SUBQ SCH ×2 (09:10→21:16)
[2017-03-21] MEDS: Insulin LISPRO 300 Unit/3 mL Inj SUBQ SCH ×6 (09:12→21:16)
[2017-03-21] MEDS: 0.9% Sodium Chloride 1,000 ML IV SCH ×3 (09:29→20:45)
[2017-03-21] MEDS: Vancomycin Inj 1,500 MG in 0.9% Sodium Chloride 500 ML IV SCH ×2 (09:30→21:20)
[2017-03-21] MEDS: Piperacillin-Tazo 3.375 Gm Inj 3.375 GM in Dextrose 5% Minibag Plus 50 ML IV SCH ×2 (10:28→16:40)
--- NOTE | 2017-03-21 11:12 | NUR ---
Social Work: Initial Assessment Data: See initial assessment. Patient is a 46 year old female who was admitted on 03/20/17 for diabetic foot infection, sepsis per H&P. Patient's insurance is Medicare and [employer] and PCP is Chiqui VANN. EMR reviewed. SW met with patient to discuss discharge planning, SW role explained. Patient is alert and oriented x3. Patient resides at home alone in a one level, no steps house. Patient remains independent with ADLs. Patient states that she does not have a car and relies on others for transportation needs. SW discussed with patient Medicaid Transportation Program. Patient accepted information packet from [facility]. Patient states that her mother is in town from [place] until May and will be able to assist with potential care needs. Patient discussed in morning rounds, podiatry consult pending, no concerns noted for patient's capacity for self care. SW provided a discharge planning checklist booklet to pt and encouraged her to call with any questions. Phone number provided. Patient's family will assist with providing transportation at discharge. SW will continue to follow. Assessment: Home with no needs at this time. Plan: Pt to likely discharge home when medically stable. No anticipated discharge needs. SW will continue to follow. HAIDER Garibay MSW Addendum: 03/21/17 at 1127 by CORDELIA LARSEN Amended: Links added.
[2017-03-21] MEDS ORDERED: Glucose 40% Oral Gel 15 Gm Tube PO PRN (12:00)
[2017-03-21 13:07] VITALS: BP 127/76; PULSE 85; RESP 16; O2SAT 94
--- NOTE | 2017-03-21 14:05 | PCM.PNMED ---
Subjective Date of Service Mar 21, 2017 Subjective Pt reports improved erythema compared to yesterday. BS >300 on admit, now 221's. Exam Vital Signs Vital Sign - Last Date Time Temp Pulse Resp B/P Pulse Ox O2 Delivery O2 Flow Rate FiO2 03/21/17 13:07 36.6 85 16 127/76 94 Room Air Intake and Output 03/20/17 03/20/17 03/21/17 Cumulative From/Thru 15:00 23:00 07:00 03/20/17 14:44 - 03/21/17 06:08 Intake Total 1000 ml 1576 ml 2576 ml Output Total 0 ml 0 ml Balance 1000 ml 1576 ml 2576 ml Intake Oral 400 ml 400 ml IV Total 1000 ml 1176 ml 2176 ml Output Urine Total 0 ml 0 ml Exam General: Laying in bed, no apparent distress. HEENT: Normocephalic, atraumatic, EOMI grossly, his membranes moist, poor dentition, neck supple without lymphadenopathy, conjunctiva pink Cardiovascular: Regular rate and rhythm, no clicks murmurs rubs, peripheral pulses 2/4 equal bilaterally Pulmonary: Clear to auscultation bilaterally, no W/R/R. Abdominal: Soft to palpation, bowel sounds present 4, no hepatosplenomegaly. Negative rebound. Extremities: Right foot is swollen, red, warm, there is an open ulcer dorsal surface, 1cm, oozing red fluid,non-purulent. Dec Erythema/Tenderness from mid sanderson, now only to ankle. Neuro: Neurologically grossly intact, strength is equal bilaterally upper and lower extremities. Reports decreased sensation in the distal lower extremities. MSK: Able to move extremities on their own volition, strength 5 out of 5 equal bilaterally to upper and lower extremities. Lymphatic: Unable to appreciate inguinal lymph nodes Dermatologic: As above, additionally no lacy ribbon streaks are seen, unable to palpate cords, IVs and Medications Medications Reviewed: Medications were reviewed in detail Lab and Diagnostics Result Diagram: 03/21/17 0540 03/21/17 0540 X-Rays, CTs and MRIs 03/20- Three-view right foot x-ray, nonweightbearing- No acute fracture. No osseous lesion. No evidence of soft tissue gas by plain film. If symptoms and/ or clinical suspicion for pathology Assessment & Plan 46-year-old woman with history of diabetes type I insulin using, hypertension, anxiety, left foot infection requiring debridement presents after 1 day of worsening right foot pain, and the presence of opening ulcer on her right foot. She is septic and admitted for antibiotics, fluid, and further evaluation by TOBY. Acute sepsis, present on admission, active Temperature 37.8, 109, respirations 20, WBCs nearly 20, trending down to 11.5, source right foot cellulitis and ulcer Blood cultures drawn Normal saline 125 mL per hour Lactic acid was normal Blood pressure is stable Treatment of diabetic ulcer and right foot cellulitis as below Acute Right foot diabetic ulcer, present on admission, active Patient denies any trauma, occurred after resin's of pain and redness and swelling 03/20- Right foot x-ray- No acute fracture. No osseous lesion. No evidence of soft tissue gas by plain film. If symptoms and/or clinical suspicion for pathology persist, further assessment with repeat, or advanced imaging (e.g., CT , MRI, or bone scan) may be helpful for further assessment Culture and sensitivity Podiatry, Dr. Kadeem Bond DPM contacted, agreed to see patient tomorrow. Patient sees Dr. Torres regularly. Acute Right foot cellulitis present on admission, active Red, warm, painful right foot Vancomycin, Zosyn Culture and sensitivity as above X-ray as above Chronic Type I diabetes, insulin using, present on admission, uncontrolled. Patient's glucose at time of ER visit was 118, Overnight BG >300 on admit, now 221. home insulin regimen- uses Humalog 10-30 units w/ meals and Levemir 50u bid. Substitute Levemir for Lantus , added SSI-Medium Hemoglobin A1c 9.1%. Diabetic diet Acute transaminitis, present on admission, active ALT and AST both elevated, review of history does not show previous elevations Acute hepatitis panel Possibly due to dehydration, shock liver unlikely given stable blood pressure Avoid hepatic toxic medications at this time, such as acetaminophen. Acute on chronic Elevated alkaline phosphatase, present on admission, active Alkaline phosphatase appears routinely elevated, however not as high as greater than 600 as it is today Possibly due to dehydration, but developing cholecystitis or biliary process may be brewing. IV fluids as above Chronic anxiety, present on admission, stable Continue home venlafaxine Dispo- will continue IV Antibiotics, and eventually transition to PO. Follow up Podiatry recs. GI Prophylaxis: Not indicated VTE Prophylaxis: Sub-Q Heparin (Unfractionated) Resuscitation Status: DNR/DNI:Do Not Resuscitate/Intubate Pan Booth MD Mar 21, 2017 14:05
[2017-03-21 17:10] VITALS: BP 115/66; PULSE 88; RESP 18; O2SAT 93
--- NOTE | 2017-03-21 18:41 | NUR ---
Blood Sugar/NPO Pts. blood sugar has been in the 220 range and per sliding scale that warrants ~3UNITS. Pt. refused the 3UNITS and stated "That is not enough". Pt. insisted to 10UNITS of insulin lispro. Pt. blood sugar before dinner was 198 and Pt. again insisted on 10UNITS of insulin lispro for coverage. Pt. at this time has no c/o of CP, SOB or any other type of pain except for her right foot wound if it is touched. Pt. is to be NPO tonight per Podiatry. There is no scheduled time that the National Account Representative has sent forth for Pts. procedure tomorrow. Pt. also has confirms that the National Account Representative told her to be NPO tonight for a procedure tomorrow.
[2017-03-21 21:11] VITALS: BP 109/69; PULSE 84; RESP 18; O2SAT 94
[2017-03-22 00:45] VITALS: BP 116/72; PULSE 84; RESP 18; O2SAT 96
[2017-03-22] MEDS: Heparin 5,000 Unit/mL Inj SUBQ SCH ×3 (00:54→15:53)
[2017-03-22] MEDS: Sodium Chloride LOK Flush 10 mL Syringe IVFLUSH SCH ×3 (01:04→15:55)
[2017-03-22] MEDS: Piperacillin-Tazo 3.375 Gm Inj 3.375 GM in Dextrose 5% Minibag Plus 50 ML IV SCH ×3 (01:04→15:53)
--- NOTE | 2017-03-22 03:02 | NUR ---
No Weight Bearing Patient found walking around room. Reoriented to need to keep weight bearing off of foot and offered a stand and pivot method to use BSC or bedpan use. Patient agreeable.
[2017-03-22 03:10] LABS: Hepatitis A Antibody IgM Negative (Negative); Hepatitis B Core Antibody IgM Negative (Negative)
[2017-03-22 04:47] VITALS: BP 117/73; PULSE 85; RESP 18; O2SAT 97
[2017-03-22] MEDS: 0.9% Sodium Chloride 1,000 ML IV SCH (06:25)
[2017-03-22] MEDS ORDERED: Vancomycin Serum Trough XX ONE (07:30)
[2017-03-22 07:44] LABS: BASOPHILS % (AUTO) 0.4 % (0-3); EOSINOPHILS % (AUTO) 2.9 % (0-5); MONOCYTES % (AUTO) 6.5 % (4-12); Mean Corpuscular Hemoglobin 27.1 pg (27.0-35.0); Mean Corpuscular Volume 87.5 fL (81-100); NEUTROPHILS % (AUTO) 72.2 % (40-74); Platelet Count 441 bil/L (150-400)
[2017-03-22] MEDS: Fluticasone 0.05% 15 Spray/2 Gm 16 Gm Nasal Spray NOSTRIL SCH (07:53)
[2017-03-22] MEDS: Insulin LISPRO 300 Unit/3 mL Inj SUBQ SCH ×6 (07:53→20:54)
[2017-03-22] MEDS: Insulin GLARgine 100 Unit/mL Syringe SUBQ SCH ×2 (07:53→21:01)
[2017-03-22] MEDS: Vancomycin Dose per Pharmacist XX SCH (08:00)
[2017-03-22] MEDS: Venlafaxine XR 75 mg ER24 Capsule PO SCH (08:00)
--- NOTE | 2017-03-22 09:25 | PCM.CHPPOD ---
Subjective Date of service Mar 21, 2017 History of Present Illness 46-year-old neuropathic diabetic female with history of Charcot of the left lower extremity reported to the emergency department with abscess cellulitis of her right lateral foot. Patient states that she noticed her foot turning significantly erythematous over the past 48 hours. She does not recall any trauma to this area. Patient states that she did recently transition back into her diabetic shoe gear as requested by myself at her previous visit last week. She denies any recent history of fevers chills nausea or vomiting. Reason for Consultation Diabetic foot ulceration right lower extremity Allergy Allergies: Coded Allergies: No Known Allergies (Verified Allergy, Unknown, 03/20/17) Medications Albuterol HFA (Proair HFA) 8.5 Gm Hfa.aer.ad 2 PUFFS INHALATION Q4H PRN PRN PRN Alprazolam (Alprazolam) 0.25 Mg Tablet 0.25 MG PO DAILY PRN PRN For Anxiety Aspirin (Aspirin) 81 Mg Tablet 81 MG PO DAILY Fluticasone Propionate (Fluticasone Propionate Nasal) 16 Gm [place].susp 2 SPRAY NS DAILY Gabapentin (Gabapentin) 600 Mg Tablet 1,200 MG PO TID Hydrochlorothiazide (Hydrochlorothiazide) 25 Mg Tablet 25 MG PO DAILY Insulin Detemir (Levemir U100 Insulin Vial) 100 Unit/1 Ml Vial 50 UNITS SUBQ BID Insulin Human Lispro (HumaLOG U100 Insulin Vial) 100 Unit/Ml Unit 10-30 UNITS SUBQ TIDWM Levothyroxine (Levothyroxine) 125 Mcg Tablet 125 MCG PO DAILY Venlafaxine ER (Venlafaxine ER) 150 Mg Tab.er.24 150 MG PO DAILY Venlafaxine ER (Venlafaxine ER) 75 Mg Cap.er.24h 75 MG PO DAILY take together with 150mg tab Past Medical History Surgeries: Yes (C/S X3,PPTL,DEBRIDEMENT LT FOOT ULCER) Medical History: Surgical History: Social History Hx Alcohol Use: No Hx Substance Use: No Hx Tobacco Use: No Smoking Status: Unknown if Ever Smoker Podiatry Consult Exam Vital Signs Vital Sign - Last Date Time Temp Pulse Resp B/P Pulse Ox O2 Delivery O2 Flow Rate FiO2 03/22/17 04:47 36.6 85 18 117/73 97 Room Air Intake and Output 03/21/17 03/21/17 03/22/17 Cumulative From/Thru 15:00 23:00 07:00 03/20/17 14:44 - 03/22/17 06:28 Intake Total 640 ml 2200 ml 5416 ml Output Total 0 ml Balance 640 ml 2200 ml 5416 ml Intake Oral 640 ml 1040 ml IV Total 2200 ml 4376 ml Output Urine Total 0 ml # Voids 4 4 # Bowel Movements 0 0 Result Diagram: 03/22/17 0725 03/22/17 0725 Lab Test 03/20/17 16:35 03/20/17 22:14 03/21/17 05:40 03/22/17 07:25 Hemoglobin A1c 9.1% (4.8-5.6) Lactic Acid Level 1.8mmol/L (0.4-2.0) Urine Color Yellow (YELLOW) Urine Appearance Hazy (CLEAR,HAZY) Urine pH 5.5 (5.0-8.0) Urine Specific [place] 1.005 (1.003-1.035) Urine Protein Negativemg/dL (NEG,TRACE) Urine Glucose (UA) 250mg/dL (NEGATIVE) Urine Ketones Negativemg/dL (NEGATIVE) Urine Occult Blood Negative (NEGATIVE) Urine Nitrite Negative (NEGATIVE) Urine Bilirubin Negative (NEGATIVE) Urine Urobilinogen 2.0mg/dL (NORMAL) Urine Leukocyte Esterase Negative (NEGATIVE) Urine RBC 0-2/hpf (0-2) Urine WBC 0-5/hpf (0-5) Urine Epithelial Cells Many/hpf (NONE-MOD) Urine Crystals None seen (NONE SEEN) Urine Bacteria Moderate/hpf (NONE-FEW) Urine Hyaline Casts None/lpf (NONE) Urine Granular Casts None seen (NONE SEEN) Urine Waxy Casts None seen (NONE SEEN) Urine Red Blood Cell Casts None seen (NONE SEEN) Urine White Blood Cell Casts None seen (NONE SEEN) Urine Mucus None seen (None Seen) Urine Trichomonas None seen (NONE SEEN) Urine Yeast None (NONE SEEN) Urinalysis Comment None Urine Culture Reflexed Indicated Phosphorus Level 4.4mg/dL (2.5-4.9) Magnesium Level 2.4mg/dL (1.6-2.6) Procalcitonin 0.18ng/mL (0.00-0.08) Hepatitis A IgM Antibody Negative (Negative) Hepatitis B Surface Antigen Negative (Negative) Hepatitis B Core IgM Antibody Negative (Negative) Hepatitis C Antibody 0.1s/co ratio (0.0-0.9) Hepatitis C Comment Comment (.) White Blood Count 11.8th/mm3 (3.8-10.1) Red Blood Count 4.24mil/mm3 (3.90-5.20) Hemoglobin 11.5g/dL (12.0-15.6) Hematocrit 37.1% (35.0-46.0) Mean Corpuscular Volume 87.5fL (81-100) Mean Corpuscular Hemoglobin 27.1pg (27.0-35.0) Mean Corpuscular Hemoglobin Concent 31.0% (32.0-37.0) Red Cell Distribution Width 14.9% (12.3-15.4) Platelet Count 441bil/L (150-400) Neutrophils (%) (Auto) 72.2% (40-74) Lymphocytes (%) (Auto) 16.7% (14-46) Monocytes (%) (Auto) 6.5% (4-12) Eosinophils (%) (Auto) 2.9% (0-5) Basophils (%) (Auto) 0.4% (0-3) Sodium Level 141mEq/L (134-144) Potassium Level 4.5mEq/L (3.5-5.2) Chloride Level 103mEq/L (97-108) Carbon Dioxide Level 27mmol/L (18-29) Blood Urea Nitrogen 16mg/dL (6-24) Creatinine 0.75mg/dL (0.57-1.00) Estimat Glomerular Filtration Rate 119mL/min (>59) Glucose Level 121mg/dL (60-99) Calcium Level 8.5mg/dL (8.5-10.1) Total Bilirubin 0.2mg/dL (0.0-1.2) Aspartate Amino Transf (AST/SGOT) 34U/L (0-50) Alanine Aminotransferase (ALT/SGPT) 48U/L (0-32) Alkaline Phosphatase 517U/L (25-150) Total Protein 6.3g/dL (6.4-8.4) Albumin 3.2g/dL (3.4-5.0) Vancomycin Level Trough 18.7mcg/mL Exam General: Alert, Oriented X3, Cooperative, No Acute Distress, Mild Distress Lower Extremities: Right: Edema localized Extremity warm Lower Extremity Pulses: Palpable: Left Dorsalis Pedis Left Posterior Tibal Right Dorsalis Pedis Right Posterior Tibal Podiatry WOUND : Wound Location/Description Superficial ulceration of the right lateral foot distal midshaft of the fifth metatarsal measures approximately 3 cm x 4.5 cm without extension to deep tissue. There is severe erythema of the right dorsal midfoot extending from the first metatarsal and increasing intensity as it nears the fifth metatarsal ulcer site. There is moderate fluctuance noted of the dorsal midfoot compression of the midfoot does not result in any drainage at the ulcer site. Following incision of the right lateral foot ulceration approximately 5 mL of purulent discharge is noted from the dorsal aspect of the right lateral foot. No purulence is noted emanating from the plantar space there is no exposed bone. Incision General Appearence: Erythmia Assessment & Plan Assessment Abscess cellulitis of the right lower extremity Problems: Plan Consent was obtained verbally to perform bedside incision and drainage today. The right lateral foot was prepped with Betadine soaked gauze around the ulcer site. An approximately 3 cm incision was made horizontally following the midline of the superficial right lateral foot ulceration. Once that initially her skin a hemostat was inserted and blunt dissection was performed to access subcutaneous tissue. A mild amount of purulent discharge was noted approximately 5 mL emanating from the dorsal midfoot. Continue his compression was applied until all purulent discharge had been exsanguinated. This wound was ankle was a flush with large amounts of normal saline. 1/2 inch iodoform packing gauze was introduced into the wound site and the foot was dressed with Betadine soaked gauze Kerlix and a noncompressive Juan Antonio bandage. Wound cultures were taken during the bedside incision and drainage. Continue IV antibiotic therapy, follow-up wound cultures and narrow antibiotic selection as appropriate Please make nothing by mouth after midnight tonight for possible surgical intervention 03/22/2017. Patient will be reassessed in the morning to determine whether surgical intervention is necessary. Nonweightbearing right lower extremity VTE Prophylaxis: Sub-Q Heparin (Unfractionated) Meng Torres DPM Mar 22, 2017 09:25
[2017-03-22] MEDS: Vancomycin Inj 1,500 MG in 0.9% Sodium Chloride 500 ML IV SCH (09:28)
--- NOTE | 2017-03-22 09:31 | PCM.PNPOD ---
Subjective Date of Service: Mar 22, 2017 Date of Service: Mar 22, 2017 Visit Information: Reason for Visit Diabetic Foot Infection,Sepsis Surgery/Surgery Date Post-Op Day # Date of Admission: Mar 20, 2017 at 21:45 Hospital Day # Subjective: 46-year-old female evaluated resting comfortably in bed in no acute distress. Patient was admitted March 20 for treatment of right lateral foot abscess and cellulitis. Patient denies any new issues or complaints overnight. A bedside incision and drainage was performed yesterday and wound cultures were taken patient denies any significant discomfort associated with her right foot. Postop General: No Complaints Gastrointestinal: Good Appetite Pain Management: PO Objective Vital Sign - Last Date Time Temp Pulse Resp B/P Pulse Ox O2 Delivery O2 Flow Rate FiO2 03/22/17 04:47 36.6 85 18 117/73 97 Room Air Intake and Output 03/21/17 03/21/17 03/22/17 Cumulative From/Thru 15:00 23:00 07:00 03/20/17 14:44 - 03/22/17 06:28 Intake Total 640 ml 2200 ml 5416 ml Output Total 0 ml Balance 640 ml 2200 ml 5416 ml Intake Oral 640 ml 1040 ml IV Total 2200 ml 4376 ml Output Urine Total 0 ml # Voids 4 4 # Bowel Movements 0 0 Result Diagram: 03/22/17 0725 03/22/17 0725 Lab Test 03/20/17 16:35 03/20/17 22:14 03/21/17 05:40 03/22/17 07:25 Hemoglobin A1c 9.1% (4.8-5.6) Lactic Acid Level 1.8mmol/L (0.4-2.0) Urine Color Yellow (YELLOW) Urine Appearance Hazy (CLEAR,HAZY) Urine pH 5.5 (5.0-8.0) Urine Specific [place] 1.005 (1.003-1.035) Urine Protein Negativemg/dL (NEG,TRACE) Urine Glucose (UA) 250mg/dL (NEGATIVE) Urine Ketones Negativemg/dL (NEGATIVE) Urine Occult Blood Negative (NEGATIVE) Urine Nitrite Negative (NEGATIVE) Urine Bilirubin Negative (NEGATIVE) Urine Urobilinogen 2.0mg/dL (NORMAL) Urine Leukocyte Esterase Negative (NEGATIVE) Urine RBC 0-2/hpf (0-2) Urine WBC 0-5/hpf (0-5) Urine Epithelial Cells Many/hpf (NONE-MOD) Urine Crystals None seen (NONE SEEN) Urine Bacteria Moderate/hpf (NONE-FEW) Urine Hyaline Casts None/lpf (NONE) Urine Granular Casts None seen (NONE SEEN) Urine Waxy Casts None seen (NONE SEEN) Urine Red Blood Cell Casts None seen (NONE SEEN) Urine White Blood Cell Casts None seen (NONE SEEN) Urine Mucus None seen (None Seen) Urine Trichomonas None seen (NONE SEEN) Urine Yeast None (NONE SEEN) Urinalysis Comment None Urine Culture Reflexed Indicated Phosphorus Level 4.4mg/dL (2.5-4.9) Magnesium Level 2.4mg/dL (1.6-2.6) Procalcitonin 0.18ng/mL (0.00-0.08) Hepatitis A IgM Antibody Negative (Negative) Hepatitis B Surface Antigen Negative (Negative) Hepatitis B Core IgM Antibody Negative (Negative) Hepatitis C Antibody 0.1s/co ratio (0.0-0.9) Hepatitis C Comment Comment (.) White Blood Count 11.8th/mm3 (3.8-10.1) Red Blood Count 4.24mil/mm3 (3.90-5.20) Hemoglobin 11.5g/dL (12.0-15.6) Hematocrit 37.1% (35.0-46.0) Mean Corpuscular Volume 87.5fL (81-100) Mean Corpuscular Hemoglobin 27.1pg (27.0-35.0) Mean Corpuscular Hemoglobin Concent 31.0% (32.0-37.0) Red Cell Distribution Width 14.9% (12.3-15.4) Platelet Count 441bil/L (150-400) Neutrophils (%) (Auto) 72.2% (40-74) Lymphocytes (%) (Auto) 16.7% (14-46) Monocytes (%) (Auto) 6.5% (4-12) Eosinophils (%) (Auto) 2.9% (0-5) Basophils (%) (Auto) 0.4% (0-3) Sodium Level 141mEq/L (134-144) Potassium Level 4.5mEq/L (3.5-5.2) Chloride Level 103mEq/L (97-108) Carbon Dioxide Level 27mmol/L (18-29) Blood Urea Nitrogen 16mg/dL (6-24) Creatinine 0.75mg/dL (0.57-1.00) Estimat Glomerular Filtration Rate 119mL/min (>59) Glucose Level 121mg/dL (60-99) Calcium Level 8.5mg/dL (8.5-10.1) Total Bilirubin 0.2mg/dL (0.0-1.2) Aspartate Amino Transf (AST/SGOT) 34U/L (0-50) Alanine Aminotransferase (ALT/SGPT) 48U/L (0-32) Alkaline Phosphatase 517U/L (25-150) Total Protein 6.3g/dL (6.4-8.4) Albumin 3.2g/dL (3.4-5.0) Vancomycin Level Trough 18.7mcg/mL Exam General: Alert, Oriented X3, Cooperative, No Acute Distress, Mild Distress Lower Extremities: Right: Edema localized Extremity warm Lower Extremity Pulses: Palpable: Left Dorsalis Pedis Left Posterior Tibal Right Dorsalis Pedis Right Posterior Tibal Postop Sensory Motor: Distal Motor Intact, Motor 5/5, Decreased Sensation Podiatry WOUND : Wound Location/Description Right lateral foot incision and drainage wound full-thickness to subcutaneous tissue without exposed bone or tendon. There is minor necrosis of the wound edge. Erythema extends to the lateral foot approximately 3 cm beyond the incision site which has decreased significantly since last evaluation. There is no malodor. Compression of the dorsum of the right foot is productive for a minimal amount of purulent drainage. There is no exposed bone or tendon Dressing & Drainage Status: Changed Assessment & Plan Impression Improving abscess and cellulitis of the right lateral foot Problems: Plan Dressing changed today. Wound copiously flushed with large amounts of normal saline. Minimal purulence was noted. Significant improvement since evaluation yesterday. No plan for operating room today. Advance patient's diet as tolerated. The wound was packed with 1/2 inch iodoform packing gauze and dressed with Betadine soaked gauze Kerlix and an Juan Antonio bandage. We will continue to wait for wound cultures in order to transition the patient to outpatient wound care. I suspect that this patient will require 4-6 weeks of antibiotic therapy, there is no current clinical indication of osteomyelitis however this patient's abscess was situated near her fifth metatarsal shaft. Podiatry will continue to follow daily for dressing change and potential wound debridement. VTE Prophylaxis: Sub-Q Heparin (Unfractionated) Meng Torres DPM Mar 22, 2017 09:31
[2017-03-22 10:53] VITALS: BP 123/79; PULSE 88; O2SAT 95
[2017-03-22 11:30] VITALS: PULSE 85
--- NOTE | 2017-03-22 13:11 | PCM.PNMED ---
Subjective Date of Service Mar 22, 2017 Subjective Pt has bedside debridement last night and this AM by Podiatry. No plan to go to OR at this time. Afebrile overnight. Exam Vital Signs Vital Sign - Last Date Time Temp Pulse Resp B/P Pulse Ox O2 Delivery O2 Flow Rate FiO2 03/22/17 11:30 85 03/22/17 10:53 36.8 123/79 95 Room Air 03/22/17 04:47 18 Intake and Output 03/21/17 03/21/17 03/22/17 Cumulative From/Thru 15:00 23:00 07:00 03/20/17 14:44 - 03/22/17 06:28 Intake Total 640 ml 2200 ml 5416 ml Output Total 0 ml Balance 640 ml 2200 ml 5416 ml Intake Oral 640 ml 1040 ml IV Total 2200 ml 4376 ml Output Urine Total 0 ml # Voids 4 4 # Bowel Movements 0 0 Exam General: Laying in bed, no apparent distress. HEENT: Normocephalic, atraumatic, EOMI grossly, his membranes moist, poor dentition, neck supple without lymphadenopathy, conjunctiva pink Cardiovascular: Regular rate and rhythm, no clicks murmurs rubs, peripheral pulses 2/4 equal bilaterally Pulmonary: Clear to auscultation bilaterally, no W/R/R. Abdominal: Soft to palpation, bowel sounds present 4, no hepatosplenomegaly. Negative rebound. Extremities: Right foot- Bandaged today, no drainage appreciated. Dec Erythema/ Tenderness from mid [place]erson, now only to ankle. Neuro: Neurologically grossly intact, strength is equal bilaterally upper and lower extremities. Reports decreased sensation in the distal lower extremities. MSK: Able to move extremities on their own volition, strength 5 out of 5 equal bilaterally to upper and lower extremities. Lymphatic: Unable to appreciate inguinal lymph nodes Dermatologic: As above, additionally no lacy ribbon streaks are seen, unable to palpate cords, IVs and Medications Medications Reviewed: Medications were reviewed in detail Lab and Diagnostics Result Diagram: 03/22/17 0703/22/17 0725 X-Rays, CTs and MRIs 03/20- Three-view right foot x-ray, nonweightbearing- No acute fracture. No osseous lesion. No evidence of soft tissue gas by plain film. If symptoms and/ or clinical suspicion for pathology Assessment & Plan 46-year-old woman with history of diabetes type I insulin using, hypertension, anxiety, presenting w/ non healing R foot wound admitted March 20 for treatment of right lateral foot abscess and cellulitis s/p bedside I&D 03/21 by Podiatry, . Acute right lateral foot abscess and cellulitis, POA, active. s/p bedside I&D by Podiatry, . -03/20- Right foot x-ray- No acute fracture. No osseous lesion. No evidence of soft tissue gas by plain film. If symptoms and/or clinical suspicion for pathology persist, further assessment with repeat, or advanced imaging (e.g., CT , MRI, or bone scan) may be helpful for further assessment -Vancomycin, Zosyn started intially on 03/20. Bl Cx- NGTD. Wound Cx- Positive for MSSA. This is consistent w/ prior admits. -Follow up Culture and sensitivity. Keep IV Antibiotic Zosyn for now which will cover MSSA and anaerobes given diabetes. . -Podiatry Note 03/22- Dressing changed today. Wound copiously flushed with large amounts of normal saline. Minimal purulence was noted. Significant improvement since evaluation yesterday. No plan for operating room today. Advance patient's diet as tolerated. The wound was packed with 1/2 inch iodoform packing gauze and dressed with Betadine soaked gauze Kerlix and an Juan Antonio bandage. We will continue to wait for wound cultures in order to transition the patient to outpatient wound care. I suspect that this patient will require 4-6 weeks of antibiotic therapy, there is no current clinical indication of osteomyelitis however this patient's abscess was situated near her fifth metatarsal shaft. Podiatry will continue to follow daily for dressing change and potential wound debridement. Acute sepsis, present on admission, active Temperature 37.8, 109, respirations 20, WBCs nearly 20, trending down, source right foot cellulitis and ulcer Blood cultures- NGTD. Lactic acid was normal -Vancomycin, Zosyn started intially on 03/20. Wound Cx- Positive for MSSA. This is consistent w/ prior admits. -Follow up Culture and sensitivity. Keep IV Antibiotic Zosyn for now which will cover MSSA and anaerobes given diabetes Chronic Type I diabetes, insulin using, present on admission, uncontrolled. Patient's glucose at time of ER visit was 118, Overnight BG >300 on admit, now 221. Hemoglobin A1c 9.1%. home insulin regimen- uses Humalog 10-30 units w/ meals and Levemir 50u bid. - Substitute Levemir for Lantus , Increased SSI-High, Changed prandial Lispro to 15 units w/ meals. -Diabetic diet. Acute Right foot diabetic ulcer, present on admission, active- -See plan above. Acute transaminitis/ALP, present on admission, active ALT and AST both elevated, review of history does not show previous elevations Acute hepatitis panel- negative. Possibly due to dehydration, shock liver unlikely given stable blood pressure Avoid hepatic toxic medications at this time, such as acetaminophen. -c/w IVF. Chronic anxiety, present on admission, stable Continue home venlafaxine Dispo- will continue IV Antibiotics, and eventually transition to PO. Follow up Podiatry recs. GI Prophylaxis: Not indicated VTE Prophylaxis: Sub-Q Heparin (Unfractionated) Resuscitation Status: DNR/DNI:Do Not Resuscitate/Intubate Pan Booth MD Mar 22, 2017 13:11
[2017-03-22] MEDS ORDERED: Glucose 40% Oral Gel 15 Gm Tube PO PRN (14:15)
--- NOTE | 2017-03-22 14:52 | NUR ---
NUTRITION ASSESSMENT: ASSESS: 46YO F admit with superficial ulceration of R lateral foot measuring 3cm x 4.5cm s/p I&D, showing improvement per podiatry. PMHX: Type I DM, Foot ulcer, DIET: Diabetic. PO 50% LABS: Alb 3.2, MEDS: Reviewed GI: NO BM WEIGHT:108.2kg BMI: 42.0 EST.NEEDS: OBESITY (20-22kcal/kg;1.5-1.8g/kg IBW) NUTRITION DIAGNOSIS: (1) Increased protein needs related to wound healing as evidenced by increased protein needs of 1.5-1.8g/kg IBW. INTERVENTION: (1) High protein Glucerna added. (2) Diabetic diet education provided 03/21. MONITOR/EVALUATE: PO intake, skin concerns.
[2017-03-22 15:57] VITALS: BP 136/80; PULSE 86; RESP 18; O2SAT 98
--- NOTE | 2017-03-22 17:37 | NUR ---
Blood sugars and Sepsis DM I, Lantus/nutritional/correctional ordered, doses adjusted, ACHS checks continue, values greatly reduced since admit. Daily wt increased, reporting skin tightness, IVF decreased, ABX continue and adjusted with culture results. Tele d/cd.
[2017-03-22] MEDS ORDERED: Vancomycin Inj 1,000 MG in IV Premix 1 EACH IV SCH (20:00)
[2017-03-22 21:16] VITALS: BP 134/79; PULSE 80; RESP 18; O2SAT 96
[2017-03-23] MEDS: Heparin 5,000 Unit/mL Inj SUBQ SCH ×3 (00:34→16:18)
[2017-03-23] MEDS: Sodium Chloride LOK Flush 10 mL Syringe IVFLUSH SCH ×3 (00:35→16:17)
[2017-03-23] MEDS: Piperacillin-Tazo 3.375 Gm Inj 3.375 GM in Dextrose 5% Minibag Plus 50 ML IV SCH ×2 (00:35→08:31)
[2017-03-23 01:17] VITALS: BP 132/74; PULSE 84; RESP 18; O2SAT 95
[2017-03-23 04:52] VITALS: BP 104/65; PULSE 81; RESP 18; O2SAT 96
--- NOTE | 2017-03-23 05:10 | NUR ---
Blood Glucose 90 @ HS and 114 @ 03:00. No c/o pain/N/V/D.
[2017-03-23] MEDS: Venlafaxine XR 75 mg ER24 Capsule PO SCH (08:31)
[2017-03-23] MEDS: Insulin GLARgine 100 Unit/mL Syringe SUBQ SCH ×2 (08:32→20:16)
[2017-03-23] MEDS: Insulin LISPRO 300 Unit/3 mL Inj SUBQ SCH ×5 (08:33→20:08)
[2017-03-23] MEDS: Fluticasone 0.05% 15 Spray/2 Gm 16 Gm Nasal Spray NOSTRIL SCH (08:35)
--- NOTE | 2017-03-23 09:41 | PCM.PNPOD ---
Subjective Date of Service: Mar 23, 2017 Date of Service: Mar 23, 2017 Visit Information: Reason for Visit Diabetic Foot Infection,Sepsis Surgery/Surgery Date Post-Op Day # Date of Admission: Mar 20, 2017 at 21:45 Hospital Day # Subjective: 46-year-old female patient of is seen for follow-up of ulceration and diabetic foot infection on the right. Patient underwent limited I&D at bedside on 03/21/2017. White count and cellulitis have been responding positively. Patient denies any constitutional complaints. She is densely neuropathic therefore having no pain. Patient is status post Charcot midfoot reconstruction on the left foot in August. Objective Vital Sign - Last Date Time Temp Pulse Resp B/P Pulse Ox O2 Delivery O2 Flow Rate FiO2 03/23/17 04:52 36.7 81 18 104/65 96 Room Air Intake and Output 03/22/17 03/22/17 03/23/17 Cumulative From/Thru 15:00 23:00 07:00 03/20/17 14:44 - 03/23/17 06:50 Intake Total 625 ml 2118 ml 137 ml 8296 ml Output Total 1000 ml 1000 ml Balance 625 ml 1118 ml 137 ml 7296 ml Intake Oral 625 ml 1009 ml 2674 ml IV Total 1109 ml 137 ml 5622 ml Output Urine Total 1000 ml 1000 ml # Voids 2 2 8 # Bowel Movements 1 1 Result Diagram: 03/22/17 0725 03/22/17 0725 Lab Test 03/20/17 16:35 03/20/17 22:14 03/21/17 05:40 03/22/17 07:25 Hemoglobin A1c 9.1% (4.8-5.6) Lactic Acid Level 1.8mmol/L (0.4-2.0) Urine Color Yellow (YELLOW) Urine Appearance Hazy (CLEAR,HAZY) Urine pH 5.5 (5.0-8.0) Urine Specific [place] 1.005 (1.003-1.035) Urine Protein Negativemg/dL (NEG,TRACE) Urine Glucose (UA) 250mg/dL (NEGATIVE) Urine Ketones Negativemg/dL (NEGATIVE) Urine Occult Blood Negative (NEGATIVE) Urine Nitrite Negative (NEGATIVE) Urine Bilirubin Negative (NEGATIVE) Urine Urobilinogen 2.0mg/dL (NORMAL) Urine Leukocyte Esterase Negative (NEGATIVE) Urine RBC 0-2/hpf (0-2) Urine WBC 0-5/hpf (0-5) Urine Epithelial Cells Many/hpf (NONE-MOD) Urine Crystals None seen (NONE SEEN) Urine Bacteria Moderate/hpf (NONE-FEW) Urine Hyaline Casts None/lpf (NONE) Urine Granular Casts None seen (NONE SEEN) Urine Waxy Casts None seen (NONE SEEN) Urine Red Blood Cell Casts None seen (NONE SEEN) Urine White Blood Cell Casts None seen (NONE SEEN) Urine Mucus None seen (None Seen) Urine Trichomonas None seen (NONE SEEN) Urine Yeast None (NONE SEEN) Urinalysis Comment None Urine Culture Reflexed Indicated Phosphorus Level 4.4mg/dL (2.5-4.9) Magnesium Level 2.4mg/dL (1.6-2.6) Procalcitonin 0.18ng/mL (0.00-0.08) Hepatitis A IgM Antibody Negative (Negative) Hepatitis B Surface Antigen Negative (Negative) Hepatitis B Core IgM Antibody Negative (Negative) Hepatitis C Antibody 0.1s/co ratio (0.0-0.9) Hepatitis C Comment Comment (.) White Blood Count 11.8th/mm3 (3.8-10.1) Red Blood Count 4.24mil/mm3 (3.90-5.20) Hemoglobin 11.5g/dL (12.0-15.6) Hematocrit 37.1% (35.0-46.0) Mean Corpuscular Volume 87.5fL (81-100) Mean Corpuscular Hemoglobin 27.1pg (27.0-35.0) Mean Corpuscular Hemoglobin Concent 31.0% (32.0-37.0) Red Cell Distribution Width 14.9% (12.3-15.4) Platelet Count 441bil/L (150-400) Neutrophils (%) (Auto) 72.2% (40-74) Lymphocytes (%) (Auto) 16.7% (14-46) Monocytes (%) (Auto) 6.5% (4-12) Eosinophils (%) (Auto) 2.9% (0-5) Basophils (%) (Auto) 0.4% (0-3) Sodium Level 141mEq/L (134-144) Potassium Level 4.5mEq/L (3.5-5.2) Chloride Level 103mEq/L (97-108) Carbon Dioxide Level 27mmol/L (18-29) Blood Urea Nitrogen 16mg/dL (6-24) Creatinine 0.75mg/dL (0.57-1.00) Estimat Glomerular Filtration Rate 119mL/min (>59) Glucose Level 121mg/dL (60-99) Calcium Level 8.5mg/dL (8.5-10.1) Total Bilirubin 0.2mg/dL (0.0-1.2) Aspartate Amino Transf (AST/SGOT) 34U/L (0-50) Alanine Aminotransferase (ALT/SGPT) 48U/L (0-32) Alkaline Phosphatase 517U/L (25-150) Total Protein 6.3g/dL (6.4-8.4) Albumin 3.2g/dL (3.4-5.0) Vancomycin Level Trough 18.7mcg/mL Diagnostics Culture growing nearly pansensitive staph aureus. White blood cell count remains moderately high of 11.8 Exam Physical Exam Pleasant mildly obese female lying recombinant in her hospital bed in no acute distress. Right foot bandage clean dry and intact. There has been significant regression of cellulitis based on markings in the pretibial region, now limited to the dorsolateral forefoot. There is an approximately 1 x 3 cm area of full-thickness necrosis overlying the fifth metatarsal head. Scant amount of purulent exudate noted on the Nu Gauze dressing upon removal. General: Alert, Oriented X3, Cooperative, No Acute Distress, Mild Distress Lower Extremities: Right: Edema localized Extremity warm Lower Extremity Pulses: Palpable: Left Dorsalis Pedis Left Posterior Tibal Right Dorsalis Pedis Right Posterior Tibal Postop Sensory Motor: Distal Motor Intact, Motor 5/5, Decreased Sensation Assessment & Plan Impression Improving diabetic foot infection with region of full thickness necrosis overlying the fifth metatarsal head which require sharp debridement today, severe diabetic neuropathy, uncontrolled diabetes. Problems: Plan At this visit I discussed findings with patient and performed sharp debridement with a 15 scalpel blade and without need for local anesthetic. The foot was prepped with Betadine and attention directed to the lateral fifth metatarsal head where utilizing sharp dissection the full-thickness necrotic plug of tissue was excised. The lateral periosteum was visible, somewhat darkish and coloration. The abductor digiti minimize tendon was noted to be friable and partially necrotic and was therefore resected at the plantar lateral base of the fifth metatarsal head. Blunt probing revealed 3-4 cm dorsal separation of the soft tissues from the underlying metatarsals. Upon debridement of a focal nucleated hyperkeratotic lesion at the plantar lateral aspect of the fifth metatarsal head a localized and apparently noncommunicating purulent abscess was noted. This lesion was de roofed, the abscess was evacuated and irrigated, as was the entire wound with a copious amount of isotonic saline. The wound was loosely packed with loose mesh gauze dilute Betadine solution wet-to-dry type dressing followed by a noncompressive bulky gauze bandage. The patient tolerated the procedure well, wound will be checked again on 03/24/2017. I did discuss with her the potential for osteomyelitis which may require fifth metatarsal head and possibly fifth digit resection but at the moment will monitor clinical response to this debridement and continued parenteral antibiotics. In light of the culture results a more narrow spectrum of antibiotic would be appropriate, but I will leave this to the discretion of the hospitalist team. VTE Prophylaxis: Sub-Q Heparin (Unfractionated) Kadeem Bond DPM Mar 23, 2017 09:41
--- NOTE | 2017-03-23 12:09 | PCM.PNMED ---
Subjective Date of Service Mar 23, 2017 Subjective Afebrile overnight. Had another bedside debridement by Podiatry, Dr Kadeem Bond , this AM. Exam Vital Signs Vital Sign - Last Date Time Temp Pulse Resp B/P Pulse Ox O2 Delivery O2 Flow Rate FiO2 03/23/17 04:52 36.7 81 18 104/65 96 Room Air Intake and Output 03/22/17 03/22/17 03/23/17 Cumulative From/Thru 15:00 23:00 07:00 03/20/17 14:44 - 03/23/17 06:50 Intake Total 625 ml 2118 ml 137 ml 8296 ml Output Total 1000 ml 1000 ml Balance 625 ml 1118 ml 137 ml 7296 ml Intake Oral 625 ml 1009 ml 2674 ml IV Total 1109 ml 137 ml 5622 ml Output Urine Total 1000 ml 1000 ml # Voids 2 2 8 # Bowel Movements 1 1 Exam General: no apparent distress. AOX3. HEENT: Normocephalic, atraumatic, EOMI grossly, his membranes moist, poor dentition, neck supple without lymphadenopathy, conjunctiva pink Cardiovascular: Regular rate and rhythm, no clicks murmurs rubs, peripheral pulses 2/4 equal bilaterally Pulmonary: Clear to auscultation bilaterally, no W/R/R. Abdominal: Soft to palpation, bowel sounds present 4, no hepatosplenomegaly. Negative rebound. Extremities: No LE Edema. Right foot- Bandaged today, no drainage appreciated. Neuro: Neurologically grossly intact, strength is equal bilaterally upper and lower extremities. Dec sensation b/l LE due to neuropathy. IVs and Medications Medications Reviewed: Medications were reviewed in detail Lab and Diagnostics Result Diagram: 03/22/1772403/22/1725 X-Rays, CTs and MRIs 03/20- Three-view right foot x-ray, nonweightbearing- No acute fracture. No osseous lesion. No evidence of soft tissue gas by plain film. If symptoms and/ or clinical suspicion for pathology Assessment & Plan 46-year-old woman with history of diabetes type I insulin using, hypertension, anxiety, presenting w/ non healing R foot wound admitted March 20 for treatment of right lateral foot abscess and cellulitis s/p bedside I&D 03/21 by Podiatry, . Acute right lateral foot abscess and cellulitis, POA, active. s/p bedside I&D by Podiatry, . -03/20- Right foot x-ray- No acute fracture. No osseous lesion. No evidence of soft tissue gas by plain film. If symptoms and/or clinical suspicion for pathology persist, further assessment with repeat, or advanced imaging (e.g., CT , MRI, or bone scan) may be helpful for further assessment -Vancomycin, Zosyn started intially on 03/20. Bl Cx- NGTD. Wound Cx- Positive for MSSA. This is consistent w/ prior admits. -Follow up Culture and sensitivity. Keep IV Antibiotic Zosyn for now which will cover MSSA and anaerobes given diabetes. . -Podiatry follow, Dr Kadeem Bond- bedside debridement 03/23, and will re- evaluate 03/24. Per Podiatry note, discussed with her the potential for osteomyelitis which may require fifth metatarsal head and possibly fifth digit resection but at the moment will monitor clinical response to this debridement and continued parenteral antibiotics Acute sepsis, present on admission, active Temperature 37.8, 109, respirations 20, WBCs nearly 20, trending down, source right foot cellulitis and ulcer Blood cultures- NGTD. Lactic acid was normal -Vancomycin, Zosyn started intially on 03/20. Wound Cx- Positive for MSSA. This is consistent w/ prior admits. -Follow up Culture and sensitivity. Keep IV Antibiotic, change from Zosyn to Clindamycin given SERENITY of 0.25. Chronic Type I diabetes, insulin using, present on admission, uncontrolled. Patient's glucose at time of ER visit was 118, Overnight BG >300 on admit, now 221. Hemoglobin A1c 9.1%. home insulin regimen- uses Humalog 10-30 units w/ meals and Levemir 50u bid. - Substitute Levemir for Lantus , Increased SSI-High, Changed prandial Lispro to 15 units w/ meals. -Diabetic diet. Acute Right foot diabetic ulcer, present on admission, active- -See plan above. Acute transaminitis/ALP, present on admission, active ALT and AST both elevated, review of history does not show previous elevations Acute hepatitis panel- negative. Possibly due to dehydration, shock liver unlikely given stable blood pressure Avoid hepatic toxic medications at this time, such as acetaminophen. Repeat CMP in am. Chronic anxiety, present on admission, stable Continue home venlafaxine Dispo- will continue IV Antibiotics, and eventually transition to PO. Follow up Podiatry recs. GI Prophylaxis: Not indicated VTE Prophylaxis: Sub-Q Heparin (Unfractionated) Resuscitation Status: DNR/DNI:Do Not Resuscitate/Intubate Pan Booth MD Mar 23, 2017 12:09
[2017-03-23] MEDS: Clindamycin Inj 900 MG in IV Premix 1 EACH IV SCH ×2 (13:29→20:14)
[2017-03-23 14:08] VITALS: BP 111/73; PULSE 87; RESP 18; O2SAT 94
[2017-03-23] MEDS ORDERED: Glucose 40% Oral Gel 15 Gm Tube PO PRN (16:55)
--- NOTE | 2017-03-23 18:13 | NUR ---
Blood sugars and ABX BS low this shift, pt reports eating "better than at home", provider notified, insulin dosages adjusted, ACHS checks continue ABX adjusted for renal function, next labs in AM.
[2017-03-23] MEDS ORDERED: 0.9% Sodium Chloride 250 ML ONE (20:10)
[2017-03-23 21:03] VITALS: BP 121/74; PULSE 93; RESP 18; O2SAT 97
[2017-03-24] MEDS: Sodium Chloride LOK Flush 10 mL Syringe IVFLUSH SCH ×3 (00:11→15:35)
[2017-03-24] MEDS: Heparin 5,000 Unit/mL Inj SUBQ SCH ×3 (00:11→15:35)
[2017-03-24] MEDS: Clindamycin Inj 900 MG in IV Premix 1 EACH IV SCH ×3 (04:21→22:08)
[2017-03-24 04:23] VITALS: BP 150/86; PULSE 94; RESP 18; O2SAT 96
[2017-03-24 07:24] LABS: Mean Corpuscular Hemoglobin 27.2 pg (27.0-35.0); Mean Corpuscular Volume 86.8 fL (81-100); Platelet Count 492 bil/L (150-400)
[2017-03-24] MEDS ORDERED: Vancomycin Serum Trough XX ONE (07:30)
[2017-03-24 08:02] LABS: BASOPHILS % (AUTO) 0 % (0-3); EOSINOPHILS % (AUTO) 3 % (0-5); MONOCYTES % (AUTO) 7 % (4-12); NEUTROPHILS % (AUTO) 69 % (40-74)
[2017-03-24] MEDS: Venlafaxine XR 75 mg ER24 Capsule PO SCH (08:50)
[2017-03-24] MEDS: Insulin GLARgine 100 Unit/mL Syringe SUBQ SCH ×2 (08:50→22:08)
[2017-03-24] MEDS: Fluticasone 0.05% 15 Spray/2 Gm 16 Gm Nasal Spray NOSTRIL SCH (08:50)
[2017-03-24] MEDS: Insulin LISPRO 300 Unit/3 mL Inj SUBQ SCH ×4 (08:51→22:07)
--- NOTE | 2017-03-24 12:44 | PCM.PNMED ---
Subjective Date of Service Mar 24, 2017 Subjective Pt was afebrile overnight. No overnight events. Exam Vital Signs Vital Sign - Last Date Time Temp Pulse Resp B/P Pulse Ox O2 Delivery O2 Flow Rate FiO2 03/24/17 04:23 36.9 94 18 150/86 96 Room Air Intake and Output 03/23/17 03/23/17 03/24/17 Cumulative From/Thru 15:00 23:00 07:00 03/20/17 14:44 - 03/24/17 06:48 Intake Total 400 ml 1608 ml 300 ml 28101 ml Output Total 1800 ml 600 ml 3400 ml Balance -1400 ml 1008 ml 300 ml 7204 ml Intake Oral 400 ml 1372 ml 300 ml 4746 ml IV Total 236 ml 5858 ml Output Urine Total 1800 ml 600 ml 3400 ml # Voids 2 2 12 # Bowel Movements 0 1 Exam General: no apparent distress. AOX3. HEENT: Normocephalic, atraumatic, EOMI grossly, his membranes moist, poor dentition, neck supple without lymphadenopathy, conjunctiva pink Cardiovascular: Regular rate and rhythm, no clicks murmurs rubs, peripheral pulses 2/4 equal bilaterally Pulmonary: Clear to auscultation bilaterally, no W/R/R. Abdominal: Soft to palpation, bowel sounds present 4, no hepatosplenomegaly. Negative rebound. Extremities: No LE Edema. Right foot- Bandaged today, no drainage appreciated. Neuro: Neurologically grossly intact, strength is equal bilaterally upper and lower extremities. Dec sensation b/l LE due to neuropathy. IVs and Medications Medications Reviewed: Medications were reviewed in detail Lab and Diagnostics Result Diagram: 03/24/17 0657 03/24/17 0657 Microbiology Laboratory Tests Test 03/24/17 06:57 White Blood Count 13.2th/mm3 (3.8-10.1) Red Blood Count 4.16mil/mm3 (3.90-5.20) Hemoglobin 11.3g/dL (12.0-15.6) Hematocrit 36.1% (35.0-46.0) Mean Corpuscular Volume 86.8fL (81-100) Mean Corpuscular Hemoglobin 27.2pg (27.0-35.0) Mean Corpuscular Hemoglobin Concent 31.3% (32.0-37.0) Red Cell Distribution Width 15.0% (12.3-15.4) Platelet Count 492bil/L (150-400) Neutrophils (%) (Auto) 69% (40-74) Lymphocytes (%) (Auto) 17% (14-46) Monocytes (%) (Auto) 7% (4-12) Eosinophils (%) (Auto) 3% (0-5) Basophils (%) (Auto) 0% (0-3) Band Neutrophils % 4% (1-5) Sodium Level 134mEq/L (134-144) Potassium Level 5.6mEq/L (3.5-5.2) Chloride Level 96mEq/L (97-108) Carbon Dioxide Level 25mmol/L (18-29) Blood Urea Nitrogen 19mg/dL (6-24) Creatinine 0.69mg/dL (0.57-1.00) Estimat Glomerular Filtration Rate 131mL/min (>59) Glucose Level 221mg/dL (60-99) Calcium Level 8.9mg/dL (8.5-10.1) Total Bilirubin 0.2mg/dL (0.0-1.2) Aspartate Amino Transf (AST/SGOT) 27U/L (0-50) Alanine Aminotransferase (ALT/SGPT) 29U/L (0-32) Alkaline Phosphatase 426U/L (25-150) Total Protein 6.5g/dL (6.4-8.4) Albumin 3.3g/dL (3.4-5.0) Microbiology 03/20/17 Blood Culture - Preliminary, Resulted No growth at 2 days; culture examined... 03/22/17 MRSA (PCR) - Final, Complete 03/20/17 Urine Culture - Final, Complete Mixed Urogenital Simona 03/20/17 Gram Stain - Final, Resulted 03/20/17 Culture & Sensitivity - Preliminary, Resulted Staphylococcus Aureus 03/20/17 Anaerobic Culture - Preliminary, Resulted SERENITY GS (GRAM STAIN) Final 03/20/17-2217 GRAM STAIN RESULT NO POLYS SEEN MANY GRAM POS COCCI SERENITY CULT AEROBIC Preliminary 03/22/17-0751 Organism 1 STAPHYLOCOCCUS AUREUS COLONY COUNT/QUANTITY HEAVY GROWTH Oxacillin Susceptible Penicillin Resistant Staph spp. are Susceptible to Penicillin stable penicillins, Blactam/Blactamase inhibitor combinations, antistaphyloccal cephems, and carbapenems. 1. STAPHYLOCOCCUS AUREUS M.I.C Interp --------- ------ * CEFAZOLIN S * CLINDAMYCIN <=0.25 S * ERYTHROMYCIN >=8 R * LINEZOLID 2 S * MOXIFLOXACIN <=0.25 S * OXACILLIN SEERNITY 0.5 S * RIFAMPIN <=0.5 S * TRIMETHOPRIM/SULFAMETHOXAZOLE <=10 S * VANCOMYCIN <=0.5 S X-Rays, CTs and MRIs 03/20- Three-view right foot x-ray, nonweightbearing- No acute fracture. No osseous lesion. No evidence of soft tissue gas by plain film. If symptoms and/ or clinical suspicion for pathology Assessment & Plan 46-year-old woman with history of diabetes type I insulin using, hypertension, anxiety, presenting w/ non healing R foot wound admitted March 20 for treatment of right lateral foot abscess and cellulitis s/p bedside I&D 03/21, , and 03/23. Acute right lateral foot abscess and cellulitis, POA, active. s/p bedside I&D by Podiatry, . -03/20- Right foot x-ray- No acute fracture. No osseous lesion. No evidence of soft tissue gas by plain film. If symptoms and/or clinical suspicion for pathology persist, further assessment with repeat, or advanced imaging (e.g., CT , MRI, or bone scan) may be helpful for further assessment- -Vancomycin, Zosyn started initially on 03/20. Wound Cx- Positive for MSSA. This is consistent w/ prior admits. -Keep IV Antibiotic, 03/23- changed from Zosyn to Clindamycin given SERENITY of 0.25. -Podiatry follow, Dr Kadeem Bond- bedside debridement 03/23. Per Podiatry note, discussed with her the potential for osteomyelitis which may require fifth metatarsal head and possibly fifth digit resection but at the moment will monitor clinical response to this debridement and continued parenteral antibiotics. -Repeat CBC in AM, check ESR, CRP, Procalcitonin. Sepsis, present on admission, active Temperature 37.8, 109, respirations 20, WBCs nearly 20, Source-Acute right lateral foot abscess and cellulitis. UCx- mixed UG Simona. Blood cultures- NGTD, Wound Cx- Positive for MSSA. -Lactic acid was normal. Elevated Procalcitonin- 0.2->0.18 -See above for antibiotic plan. Chronic Type I diabetes, insulin using, present on admission, uncontrolled. Patient's glucose at time of ER visit was 118, Overnight BG >300 on admit, now 221. Hemoglobin A1c 9.1%. home insulin regimen- uses Humalog 10-30 units w/ meals and Levemir 50u bid. - Substitute Levemir for Lantus, 03/23- changed back to SSI-Med, Changed prandial Lispro to 10 units w/ meals due to hypoglycemia. -Diabetic diet. Acute Right foot diabetic ulcer, present on admission, active- -See plan above. Transaminitis/ALP likely due to hepatic steatosis, present on admission, active ALT and AST both elevated, review of history does not show previous elevations. ALP- 639 on admit, trending down, appears to be chronically elevated, usually less than 400. Acute hepatitis panel- negative. Pt does have hx of Hepatic Steatosis per [place] 2014. Possibly due to dehydration, shock liver unlikely given stable blood pressure. Avoid hepatic toxic medications at this time, such as acetaminophen. Repeat CMP in am. Chronic anxiety, present on admission, stable Continue home venlafaxine Dispo- will continue IV Antibiotics, and eventually transition to PO. Follow up Podiatry recs. GI Prophylaxis: Not indicated VTE Prophylaxis: Sub-Q Heparin (Unfractionated) Resuscitation Status: DNR/DNI:Do Not Resuscitate/Intubate Pan Booth MD Mar 24, 2017 12:43
--- NOTE | 2017-03-24 12:45 | PCM.PNPOD ---
Subjective Date of Service: Mar 24, 2017 Date of Service: Mar 24, 2017 Visit Information: Reason for Visit Diabetic Foot Infection,Sepsis Surgery/Surgery Date Post-Op Day # Date of Admission: Mar 20, 2017 at 21:45 Hospital Day # Subjective: 46-year-old female is seen for follow-up of bedside debridement of soft tissue necrosis lateral fifth metatarsal head right foot yesterday and diabetic foot infection. Patient states she is feeling somewhat poorly today, no specific symptoms other than mild stomach upset and feeling tired. She denies feeling feverish, has had no chills but does have positive malaise. Objective Vital Sign - Last Date Time Temp Pulse Resp B/P Pulse Ox O2 Delivery O2 Flow Rate FiO2 03/24/17 04:23 36.9 94 18 150/86 96 Room Air Intake and Output 03/23/17 03/23/17 03/24/17 Cumulative From/Thru 15:00 23:00 07:00 03/20/17 14:44 - 03/24/17 06:48 Intake Total 400 ml 1608 ml 300 ml 93225 ml Output Total 1800 ml 600 ml 3400 ml Balance -1400 ml 1008 ml 300 ml 7204 ml Intake Oral 400 ml 1372 ml 300 ml 4746 ml IV Total 236 ml 5858 ml Output Urine Total 1800 ml 600 ml 3400 ml # Voids 2 2 12 # Bowel Movements 0 1 Result Diagram: 03/24/17 0657 03/24/17 0657 Lab Test 03/20/17 16:35 03/20/17 22:14 03/21/17 05:40 03/22/17 07:25 Hemoglobin A1c 9.1% (4.8-5.6) Lactic Acid Level 1.8mmol/L (0.4-2.0) Urine Color Yellow (YELLOW) Urine Appearance Hazy (CLEAR,HAZY) Urine pH 5.5 (5.0-8.0) Urine Specific [place] 1.005 (1.003-1.035) Urine Protein Negativemg/dL (NEG,TRACE) Urine Glucose (UA) 250mg/dL (NEGATIVE) Urine Ketones Negativemg/dL (NEGATIVE) Urine Occult Blood Negative (NEGATIVE) Urine Nitrite Negative (NEGATIVE) Urine Bilirubin Negative (NEGATIVE) Urine Urobilinogen 2.0mg/dL (NORMAL) Urine Leukocyte Esterase Negative (NEGATIVE) Urine RBC 0-2/hpf (0-2) Urine WBC 0-5/hpf (0-5) Urine Epithelial Cells Many/hpf (NONE-MOD) Urine Crystals None seen (NONE SEEN) Urine Bacteria Moderate/hpf (NONE-FEW) Urine Hyaline Casts None/lpf (NONE) Urine Granular Casts None seen (NONE SEEN) Urine Waxy Casts None seen (NONE SEEN) Urine Red Blood Cell Casts None seen (NONE SEEN) Urine White Blood Cell Casts None seen (NONE SEEN) Urine Mucus None seen (None Seen) Urine Trichomonas None seen (NONE SEEN) Urine Yeast None (NONE SEEN) Urinalysis Comment None Urine Culture Reflexed Indicated Phosphorus Level 4.4mg/dL (2.5-4.9) Magnesium Level 2.4mg/dL (1.6-2.6) Procalcitonin 0.18ng/mL (0.00-0.08) Hepatitis A IgM Antibody Negative (Negative) Hepatitis B Surface Antigen Negative (Negative) Hepatitis B Core IgM Antibody Negative (Negative) Hepatitis C Antibody 0.1s/co ratio (0.0-0.9) Hepatitis C Comment Comment (.) Vancomycin Level Trough 18.7mcg/mL Test 03/24/17 06:57 White Blood Count 13.2th/mm3 (3.8-10.1) Red Blood Count 4.16mil/mm3 (3.90-5.20) Hemoglobin 11.3g/dL (12.0-15.6) Hematocrit 36.1% (35.0-46.0) Mean Corpuscular Volume 86.8fL (81-100) Mean Corpuscular Hemoglobin 27.2pg (27.0-35.0) Mean Corpuscular Hemoglobin Concent 31.3% (32.0-37.0) Red Cell Distribution Width 15.0% (12.3-15.4) Platelet Count 492bil/L (150-400) Neutrophils (%) (Auto) 69% (40-74) Lymphocytes (%) (Auto) 17% (14-46) Monocytes (%) (Auto) 7% (4-12) Eosinophils (%) (Auto) 3% (0-5) Basophils (%) (Auto) 0% (0-3) Band Neutrophils % 4% (1-5) Sodium Level 134mEq/L (134-144) Potassium Level 5.6mEq/L (3.5-5.2) Chloride Level 96mEq/L (97-108) Carbon Dioxide Level 25mmol/L (18-29) Blood Urea Nitrogen 19mg/dL (6-24) Creatinine 0.69mg/dL (0.57-1.00) Estimat Glomerular Filtration Rate 131mL/min (>59) Glucose Level 221mg/dL (60-99) Calcium Level 8.9mg/dL (8.5-10.1) Total Bilirubin 0.2mg/dL (0.0-1.2) Aspartate Amino Transf (AST/SGOT) 27U/L (0-50) Alanine Aminotransferase (ALT/SGPT) 29U/L (0-32) Alkaline Phosphatase 426U/L (25-150) Total Protein 6.5g/dL (6.4-8.4) Albumin 3.3g/dL (3.4-5.0) Diagnostics White count up to 13.2 Exam General: Alert, Oriented X3, Cooperative, No Acute Distress, Mild Distress Lower Extremities: Right: Edema localized Extremity warm Lower Extremity Pulses: Palpable: Left Dorsalis Pedis Left Posterior Tibal Right Dorsalis Pedis Right Posterior Tibal Postop Sensory Motor: Distal Motor Intact, Motor 5/5, Decreased Sensation Additional Information: Patient is lying recombinant in bed, she is obviously less animated than yesterday. Dressing dry and intact, recently changed by the hospitalist. Foot shows improvement in terms of regression of erythema, however there is recurrent soft tissue necrosis of the lateral fifth metatarsal phalangeal joint and fifth metatarsal head as well as tracking slightly plantarward. There is no fluctuance or overt purulence, no malodor. Lateral capsular tissues do appear somewhat darkish and devitalized. Pulses are trace, capillary refill 3- 4 seconds, the foot is warm, and densely insensate. Skin of the Charcoid left foot is intact Assessment & Plan Impression Wound suspicious for osteomyelitis of the fifth metatarsal head, improvement in cellulitis with no clinical evidence of proximal extension at present. Problems: Plan At this visit the wound is again sharply debrided of devitalized soft tissue and stringy fibrin utilizing an 11 blade after Hibiclens prep. Dilute Betadine wet-to-dry dressing reapplied followed by a noncompressive gauze bandage. MRI right forefoot with and without contrast ordered. Continue present local wound care, when necessary debridement and parenteral antibiotics pending results of MRI. VTE Prophylaxis: Sub-Q Heparin (Unfractionated) Kadeem Bond DPM Mar 24, 2017 12:45
[2017-03-24 13:17] VITALS: BP 134/84; PULSE 83; RESP 18; O2SAT 95
--- NOTE | 2017-03-24 19:32 | DRSVH ---
PROCEDURE: MRI FOREFOOT RIGHT WITH AND WITHOUT CONTRAST ([id number]) INDICATIONS: 46 year-old female with history of diabetes presenting with right foot pain, ulcer, and sepsis. TECHNIQUE: Noncontrast sagittal T1 spin echo and T2 fast spin echo with fat saturation, long-axis T1 spin echo a nd T2 fast spin echo with fat saturation; short-axis T1 spin echo, proton density fast spin echo, and T2 fast spin echo with fat saturation through the forefoot. Post-contrast short axis, long axis, an d sagittal T1 spin echo with fat saturation through the forefoot. COMPARISON: [facility], CR, XR FOOT 3VW RT, 03/20/2017, 21:31. FINDINGS: Image quality: Excellent. Bones and joints: There is abnormal bone marrow edema and enhancement involving the 5th metatarsal a nd proximal phalanx associated with a small cortical erosion in the mid metatarsal shaft adjacent to the patient's cutaneous ulcer. The findings are consistent with osteomyelitis. Within the mid foot, there is abnormal bone marrow edema and enhancement involving the middle and lateral cuneiforms, cub oid, and the navicular with adjacent soft tissue edema and enhancement in the plantar soft tissues. The findings also likely represent osteomyelitis. No discrete associated fracture lines identified. Soft tissues: Along the dorsal lateral aspect of the forefoot at the level of the 5th metatarsal shaf t, there is a cutaneous ulcer measuring approximately 2 cm in transverse dimension by 1.3 cm in longi tudinal extent. This extends to the underlying metatarsal bone. There is associated soft tissue donald ma and enhancement consistent with cellulitis. There is also associated edema and enhancement along the extensor tendons dorsally most prominent kendra ng the 5th toe compatible with peritendinitis. The visualized flexor and extensor tendons appear int act without tenosynovial fluid collections. There is a small heterogeneous collection demonstrating internal enhancement between the 4th and 5th metatarsal shafts, measuring up to 2.4 x 1.3 x 0.9 cm suggestive of a phlegmon. There is soft tissue edema and enhancement demonstrated within the plantar aspect of the mid foot including within the pl josh musculature likely representing cellulitis and myositis. IMPRESSION: 1. Prominent soft tissue ulcer along the dorsal lateral aspect of the forefoot extending to the unde rlying 5th metatarsal bone which demonstrates associated findings consistent with osteomyelitis as we ll as within the 5th proximal phalanx. 2. Abnormal edema and enhancement within the mid foot involving the middle and lateral cuneiforms, c uboid, and navicular also likely representing osteomyelitis. 3. Plantar soft tissue edema and enhancement within the mid foot associated with the adjacent bony c hanges most likely represent cellulitis and myositis. 4. Heterogeneous enhancing collection between the 4th and 5th metatarsals likely represents a phlegm on. 5. Peritendinitis along the distal extensor tendons without tenosynovial fluid. Dictated by: Sukhdeep Freitas M.D. on 03/24/2017 at 18:15 Approved by: Sukhdeep Freitas M.D. on 03/24/2017 at 18:30
--- NOTE | 2017-03-24 19:36 | NUR ---
Blood sugars Hypoglycemia this shift, provider notified, verbal okay to admin only half of nutritional coverage, ACHS checks continue.
[2017-03-24 21:30] VITALS: BP 128/69; PULSE 87; RESP 16; O2SAT 93
[2017-03-25] VITALS (10 sets, daily range): BP systolic 104–167; BP diastolic 55–88; PULSE 78–97; RESP 12–22; O2SAT 92–98
[2017-03-25] MEDS: Sodium Chloride LOK Flush 10 mL Syringe IVFLUSH SCH ×3 (00:11→17:15)
[2017-03-25] MEDS: Heparin 5,000 Unit/mL Inj SUBQ SCH ×3 (01:08→17:15)
[2017-03-25] MEDS: Clindamycin Inj 900 MG in IV Premix 1 EACH IV SCH (04:47)
[2017-03-25 06:45] LABS: BASOPHILS % (AUTO) 0.4 % (0-3); EOSINOPHILS % (AUTO) 2.4 % (0-5); MONOCYTES % (AUTO) 7.2 % (4-12); Mean Corpuscular Hemoglobin 27.7 pg (27.0-35.0); Mean Corpuscular Volume 85.8 fL (81-100); NEUTROPHILS % (AUTO) 65.1 % (40-74); Platelet Count 527 bil/L (150-400)
[2017-03-25 07:32] LABS: ERYTHROCYTE SEDIMENTATION RATE 62 mm/hr (0-32)
[2017-03-25] MEDS: Venlafaxine XR 75 mg ER24 Capsule PO SCH (08:03)
[2017-03-25] MEDS: Fluticasone 0.05% 15 Spray/2 Gm 16 Gm Nasal Spray NOSTRIL SCH (08:03)
[2017-03-25] MEDS: Insulin LISPRO 300 Unit/3 mL Inj SUBQ SCH ×4 (09:00→21:45)
[2017-03-25] MEDS: Insulin GLARgine 100 Unit/mL Syringe SUBQ SCH ×2 (09:00→21:44)
--- NOTE | 2017-03-25 09:19 | NUR ---
CECI Signed. HAIDER Cedeno
[2017-03-25] MEDS ORDERED: Propofol 10,000 mCg/mL 20 mL Inj ONE (10:06)
[2017-03-25] MEDS ORDERED: fentaNYL-PF 50 mCg/mL 2 mL Inj ONE (10:06)
[2017-03-25] MEDS ORDERED: Lactated Ringer's 1,000 ML IV ONE (11:25)
--- NOTE | 2017-03-25 11:35 | NUR ---
Social Work-continued d/c planning/ multidisciplinary rounds: Data:EMR reviewed. Pt is on day 5 of hospitalization for diabetic foot per H&P. Pt is not medically stable anticipate several more days. Pt followed by podiatry and pt to go to the OR today. SW to follow up with pt post surgery to determine any discharge needs. SW will continue to follow. Assessment:pt who is independent at baseline. Plan:Pt to discharge home when medically stable via POV. SW to follow up with pt post surgery for any needs. SW will continue to follow. HAIDER Cedeno
[2017-03-25] MEDS ORDERED: Albuterol-Ipratropium 3 mL Inhalation Solution NEB PRN (11:50)
[2017-03-25] MEDS ORDERED: Phenylephrine 10,000 mCg/mL Inj IVPUSH PRN (11:50)
[2017-03-25] MEDS ORDERED: Labetalol 5 mg/mL 20 mL Inj IV PRN (11:50)
[2017-03-25] MEDS ORDERED: Atropine 0.4 mg/mL Inj IVPUSH PRN (11:50)
[2017-03-25] MEDS ORDERED: Lactated Ringer's 1,000 ML IV SCH (11:50)
[2017-03-25] MEDS ORDERED: EPHEDrine Sulfate 50 mg/mL Inj IVPUSH PRN (11:50)
[2017-03-25] MEDS ORDERED: Ondansetron 2 mg/mL 2 mL Inj IVPUSH PRN (11:50)
[2017-03-25] MEDS ORDERED: Lactated Ringer's 500 ML IV PRN (11:50)
[2017-03-25] MEDS ORDERED: fentaNYL-PF 50 mCg/mL 2 mL Inj IVPUSH PRN (11:50)
--- NOTE | 2017-03-25 11:50 | NUR ---
OR Pt. transferred to OR at 1115. Pt. voided before OR transfer. She has a patent peripheral IV.
--- NOTE | 2017-03-25 11:53 | PCM.HPANE ---
Patient Data Surgeon Admitting Provider:Jeaneth Fulton MD Attending Provider:Pan Booth MD Primary Care Physician:Chiqui Dalal Other Provider: Reason for Visit Diabetic Foot Infection,Sepsis DIABETIC FOOT INFECTION,SEPSIS Ht/WT & BMI Height (Feet): 5 Height (Inches): 3.00 Weight (Kilograms): 106.800 Body Mass Index 42.27 Allergies Coded Allergies: No Known Allergies (Verified Allergy, Unknown, 03/20/17) Past Anesthesia History Anesthesia History: Denies:: Abnormal Airway, Anesthesia Reactions, Difficult Intubation, Fam Anesthesia Reaction, Fam Malignant Hypertherm, Malignant Hyperthermia Diabetes History Hx Diabetes?: Yes (T1DM) Type of Diabetes: Type I Glycemic Control: Insulin Dependent Current Bedside Blood Glucose: 112 MRSA MRSA: No Medications Blood Thinner: Aspirin Reported Medications Levothyroxine 125 Mcg [id number] Mcg PO DAILY 03/20/17 Gabapentin 600 Mg Tablet1,200 Mg PO TID Ref 0 08/29/16 Albuterol HFA (Proair HFA)8.5 Gm Hfa.aer.ad2 Puffs INHALATION Q4H PRN PRN #1 INHALER 05/15/16 Alprazolam 0.25 Mg Tablet0.25 Mg PO DAILY PRN For Anxiety Ref 0 05/15/16 Hydrochlorothiazide 25 Mg Rwpugw43 Mg PO DAILY 04/27/16 Insulin Human Lispro (HumaLOG U100 Insulin Vial)100 Unit/Ml Zgkj08-65 Units SUBQ TIDWM 04/27/16 Venlafaxine ER 75 Mg Cap.er.24h75 Mg PO DAILY take together with 150mg tab 04/27/16 Insulin Detemir (Levemir U100 Insulin Vial)100 Unit/1 Ml Vial50 Units SUBQ BID 04/27/16 Aspirin 81 Mg Wawzop43 Mg PO DAILY Ref 0 06/24/15 Venlafaxine ER 150 Mg Tab.er.88685 Mg PO DAILY #30 TABLET Ref 0 01/22/15 Fluticasone Propionate (Fluticasone Propionate Nasal)16 Gm Bolt.susp2 Bolt NS DAILY #16 GM Ref 0 01/22/15 Discontinued Reported Medications Benzonatate 100 Mg [id number] Mg PO TID 08/29/16 Hydrocodone-Acetaminophen 5-325 mg 1 Each Tablet1 Tablet PO Q6H PRN For Pain Ref 0 10/11/16 Lisinopril 10 Mg Tkmrho80 Mg PO DAILY 30 Days Ref 0 05/15/16 Atorvastatin Calcium 40 Mg Wacsrl33 Mg PO DAILY 04/27/16 Levothyroxine 112 Mcg Zlenyj035 Mcg PO DAILY 04/27/16 Discontinued Scripts Amoxicillin/Clav K 875-125 mg (Augmentin 875-125 mg)1 Each Tablet1 Tablet PO BID #20 TABLET Prov:Cruz Sesay DO 12/24/16 History History of ENT Problems?: Yes HEENT History: Denies:: Abnormal Airway Cataracts (HX DIABETIC RETINOPATHY) Difficult Intubation Dysphagia Glaucoma Hearing Problem Sinus Problem TMJ Denture Type: None Teeth Condition: Missing Teeth Hx of Heart Problems?: Yes Cardiovascular History: Positive for:: Edema Hypertension (HYPERLIPIDEMIA) Denies:: AICD Abdominal Aortic Aneurism Atrial Fibrillation Cardiac Surgery Chest Pain Congestive Heart Failure Coronary Artery Disease Heart Murmur Irregular Heartbeat Pacemaker Peripheral Vascular Rheumatic Fever Thrombophlebitis Valvular Heart Disease Hx of Respiratory Problem?: Yes Respiratory History: Positive for:: Pneumonia (2013) Denies:: Asthma COPD Chest Surgery Cough Dyspnea Emphysema Hemoptysis Oxygen Administration Pulmonary Embolism Tuberculosis Use of C-PAP Machine ([facility] 08/30/2016) Use of Inhalers / NEBS Hx Neurologic Problems?: Yes Neurological History: Positive for:: Dizziness (& MENTAL CONFUSION R/T HYPOGLYCEMIA) Denies:: Alzheimer's Disease CVA Dementia Headaches Multiple Sclerosis Parkinson's Disease Peripheral Neuropathy Seizures TIA Other Neurological Pertinent: diabetic neuropathy Hx of GI Problems?: Yes Gastrointestinal History: Denies:: Cirrhosis Diverticulitis Gall Bladder Disease Gastroesphageal Reflux Gastrointestinal Bleeding Heartburn Hepatitis Hiatal Hernia Liver Disease Rectal Bleeding Hx of Problems?: Yes Genitourinary History: Positive for:: Urinary Tract Infection (HX OF) Denies:: HX of Hemodialysis Kidney Stones HX of Peritoneal Dialysis: No Female Hx: Denies:: Currently Endometriosis Pelvic Inflammatory Problems with Breasts? Skin History: Positive for:: History Skin Disorders? (psoriasis, HIDRADENITIS) Denies:: Pressure Ulcers (HX FOOT ULCERATIONS) Other Skin Pertinent History: current: rt.foot ulceration Hx Musculoskeletal Problems?: Yes Musculoskeletal History: Positive for:: Musculoskeletal Trauma (HX LT FOOT CHARCOT JOINT/LIS FRANC DISLOCATION) Denies:: Back Injury Degenerative Joint Fibromyalgia Joint Replacement Myasthenia Gravis Osteoarthritis Rheumatoid Arthritis Systemic Lupus Hx of Psycho/Social Problems?: Yes Psycho Social History: Positive for:: Anxiety Hx Depression Denies:: Bipolar Disorder Suicide Attempt Hx Surgeries?: Yes (C/S X3,PPTL,DEBRIDEMENT LT FOOT ULCER) Hx Any Other Health Problems?: Yes Other History: Positive for:: Hospitalization (diabetes ) Thyroid Disease (hypothyroid) Denies:: Cancer Endocrine Disease History Blood Transfusions: Positive for:: Accept Blood Products? Denies:: Blood Transfuse Reaction Blood Transfusions Hx Diabetes: Yes (T1DM)Bedside Blood Glucose: 112 Hx Alcohol Use: NoHx Substance Use: No Smoking Status: Unknown if Ever Smoker Have You Smoked inLast 12 mo: No Stop/Bang Treated for Sleep Apnea?: No Do You Have a CPAP Machine?: No S-Snoring: Do You Snore Loudly: Yes T-Tired: feel tired, fatigued: No O-Obsered: Observed not breath: No P-Blood Pressure: treated: No B- Body Mass Index > 35 kg/m2: Yes A- Age over 50: Yes N- Neck Large Circumference: Yes G- Gender Male: No DOROTHEA Total Score: 4 Risk Assessment Category Category 1A: Patient has history of documented sleep apnea, and HAS NOT received any narcotic, sedative or anesthesia administration during this stay. Category 1B: Patient has history of documented sleep apnea, and HAS received any narcotic , sedative or anesthesia administration during this stay Category 2: Patient has SUSPECTED Obstructive Sleep Apnea, and HAS received any narcotic , sedative or anesthesia administration during this stay. Category 3: Patient has SUSPECTED Obstructive Sleep Apnea and HAS NOT received narcotic, sedative or anesthesia administration during this stay. Category 4: Outpatient in Procedural Areas with known sleep apnea or who screen positive for High Risk via the STOP/BANG questionnaire. Exam Exam Vital Signs Vital Signs Date Time Temp Pulse Resp B/P Pulse Ox O2 Delivery O2 Flow Rate FiO2 03/25/17 06:00 36.7 78 20 120/66 94 Room Air General Appearance: Alert, Oriented X3, Cooperative, No Acute Distress HEENT/AIRWAY: MP 2, Neck Movement (FROM), Mouth Opening (3 FBMO) Lungs: Clear to Auscultation, Normal Air Movement Heart: Exam Unremarkable, Regular Rate/Rhythm, No Murmurs/Rubs/Gallops Meds/Labs/Diagnostics Bedside Blood Glucose: 112 Labs Test 8/16/17 16:35 03/20/17 22:14 03/21/17 05:40 03/22/17 07:25 Hemoglobin A1c 9.1% (4.8-5.6) Lactic Acid Level 1.8mmol/L (0.4-2.0) Urine Color Yellow (YELLOW) Urine Appearance Hazy (CLEAR,HAZY) Urine pH 5.5 (5.0-8.0) Urine Specific [place] 1.005 (1.003-1.035) Urine Protein Negativemg/dL (NEG,TRACE) Urine Glucose (UA) 250mg/dL (NEGATIVE) Urine Ketones Negativemg/dL (NEGATIVE) Urine Occult Blood Negative (NEGATIVE) Urine Nitrite Negative (NEGATIVE) Urine Bilirubin Negative (NEGATIVE) Urine Urobilinogen 2.0mg/dL (NORMAL) Urine Leukocyte Esterase Negative (NEGATIVE) Urine RBC 0-2/hpf (0-2) Urine WBC 0-5/hpf (0-5) Urine Epithelial Cells Many/hpf (NONE-MOD) Urine Crystals None seen (NONE SEEN) Urine Bacteria Moderate/hpf (NONE-FEW) Urine Hyaline Casts None/lpf (NONE) Urine Granular Casts None seen (NONE SEEN) Urine Waxy Casts None seen (NONE SEEN) Urine Red Blood Cell Casts None seen (NONE SEEN) Urine White Blood Cell Casts None seen (NONE SEEN) Urine Mucus None seen (None Seen) Urine Trichomonas None seen (NONE SEEN) Urine Yeast None (NONE SEEN) Urinalysis Comment None Urine Culture Reflexed Indicated Phosphorus Level 4.4mg/dL (2.5-4.9) Magnesium Level 2.4mg/dL (1.6-2.6) Hepatitis A IgM Antibody Negative (Negative) Hepatitis B Surface Antigen Negative (Negative) Hepatitis B Core IgM Antibody Negative (Negative) Hepatitis C Antibody 0.1s/co ratio (0.0-0.9) Hepatitis C Comment Comment (.) Vancomycin Level Trough 18.7mcg/mL Test 03/24/17 06:57 03/25/17 06:05 Band Neutrophils % 4% (1-5) Sodium Level 134mEq/L (134-144) Potassium Level 5.6mEq/L (3.5-5.2) Chloride Level 96mEq/L (97-108) Carbon Dioxide Level 25mmol/L (18-29) Blood Urea Nitrogen 19mg/dL (6-24) Creatinine 0.69mg/dL (0.57-1.00) Estimat Glomerular Filtration Rate 131mL/min (>59) Glucose Level 221mg/dL (60-99) Calcium Level 8.9mg/dL (8.5-10.1) Total Bilirubin 0.2mg/dL (0.0-1.2) Aspartate Amino Transf (AST/SGOT) 27U/L (0-50) Alanine Aminotransferase (ALT/SGPT) 29U/L (0-32) Alkaline Phosphatase 426U/L (25-150) Total Protein 6.5g/dL (6.4-8.4) Albumin 3.3g/dL (3.4-5.0) White Blood Count 13.5th/mm3 (3.8-10.1) Red Blood Count 4.23mil/mm3 (3.90-5.20) Hemoglobin 11.7g/dL (12.0-15.6) Hematocrit 36.3% (35.0-46.0) Mean Corpuscular Volume 85.8fL (81-100) Mean Corpuscular Hemoglobin 27.7pg (27.0-35.0) Mean Corpuscular Hemoglobin Concent 32.2% (32.0-37.0) Red Cell Distribution Width 14.9% (12.3-15.4) Platelet Count 527bil/L (150-400) Neutrophils (%) (Auto) 65.1% (40-74) Lymphocytes (%) (Auto) 19.2% (14-46) Monocytes (%) (Auto) 7.2% (4-12) Eosinophils (%) (Auto) 2.4% (0-5) Basophils (%) (Auto) 0.4% (0-3) Erythrocyte Sedimentation Rate 62mm/hr (0-32) C-Reactive Protein 3.8mg/dL (0.0-0.5) Procalcitonin 0.15ng/mL (0.00-0.08) Plan Impression Patient chart reviewed, patient interviewed and anesthestic plan with risks, benefits, and alternatives discussed, and informed consent obtained. NPO per Anesth. Guidelines: Yes ASA Physical Status: ASA3 Severe Disease Anesthetic Plan: GA, MAC Bene/Risks/Altern/Consents: Yes HP Complete Prior to Induction: Yes Maurizio Joe MD Mar 25, 2017 11:19
[2017-03-25] MEDS ORDERED: Lidocaine 1%/Epi 1:100,000 30 mL MDV INFILTRATE ONE (11:58)
[2017-03-25] MEDS ORDERED: Gentamicin 40 mg/mL 2 mL Inj IRRIGATION ONE (11:58)
--- NOTE | 2017-03-25 12:26 | PCM.PODPO ---
Podiatry Operative Report Date of Service: Mar 25, 2017 Date of Service Mar 25, 2017 Pre Operative Diagnosis Osteomyelitis right fifth metatarsal Abscess and cellulitis right fifth metatarsal Post Operative Diagnosis Same as preoperative diagnoses Procedure Partial amputations of the right fifth metatarsal and total amputation of the right fifth toe Surgeon Surgeon: Meng ferguson DPM Assistants: None Indication for Procedure Osteomyelitis of right fifth metatarsal Findings Discoloration of the right fifth metatarsal head with significant osseous degeneration moderate soft tissue necrosis surrounding the midshaft fifth metatarsal soft tissue deficit Details of Procedure Patient was identified in the preoperative holding area. All preoperative comorbidities and allergies were identified and thoroughly discussed. This patient was admitted for treatment of abscess cellulitis and likely osteomyelitis of the right fifth metatarsal and fifth toe. Patient was transported into the operating room and placed on the operating room table in the normal supine position. The patient was then prepped and draped in normal aseptic technique. Attention was first paid to the lateral aspect of the right fifth metatarsal a large deficit measuring approximately 3 cm x 2.5 cm was noted which probed to the fifth metatarsal shaft. Pressure was applied distally purulent discharge was noted emanating from the distal and dorsal aspect of the wound. No purulent discharge was noted emanating from the proximal aspect of the ulceration. A #15 blade was then utilized to carry the incision distally from the ulcer site toward the fifth toe and the fifth toe was excised at the fifth metatarsophalangeal joint in a racquet style incision. Deep 15 blade was then utilized to carry this incision proximal from the ulceration site toward the base of the fifth metatarsal. The fifth metatarsal shaft was carefully dissected away from underlying soft tissue. All necrotic and nonviable soft tissue was then debrided and removed from the foot. The right fifth toe and necrotic tissue was sent for wound culture. A sagittal saw was then utilized to resect the fifth metatarsal with the exception of approximately 1.5-2 cm of the base of the fifth metatarsal. The remaining fifth metatarsal base appeared healthy and normal color. The wound was again copiously flushed with large amounts of normal saline. Partial closure of this wound was performed utilizing nylon suture of the distal and proximal aspects leaving the central fifth metatarsal deficit open. This wound was then packed with iodoform packing gauze sterile 4 x 4 gauze Kerlix ABVD pads and a loosely applied Juan Antonio wrap. The patient was awoken by anesthesia and transported out of the operating room. No consultations occurred during this procedure. Grafts, Implants: None Complications There were no periprocedural complications identified. Condition Stable Anesthetic Administered: MAC Output, Estimated Blood Loss: 20 Blood Admin during surgery: No Surgical Cast or Splint: None Surgical Specimen Removed: No Specimen sent to Pathology: No Post Operative Plan Nonweightbearing right foot Transfer back to floors when stable Advance diet as tolerated Continue inpatient antibiotic therapy Restart inpatient medications per hospitalist service recommendations Meng Ferguson DPM Mar 25, 2017 12:26
--- NOTE | 2017-03-25 12:30 | PCM.ANEP1 ---
Post Anesthesia PACU Phase 1 Assessment Vital Signs Vital Signs Date Time Temp Pulse Resp B/P Pulse Ox O2 Delivery O2 Flow Rate FiO2 03/25/17 06:00 36.7 78 20 120/66 94 Room Air Anesthetic Administered: MAC Level of Alertness: Awake, talking BUITRAGO's with Equal Strength: Yes Pain: No Pain Scale Score: 3 Nausea or Vomiting: No CV Function & Hydration Stable: Yes Airway Device: n/a Oxygen Delivery: Room Air Lungs: Clear to Auscultation, Normal Air Movement Dermatome Level: Full Sensation PACU Phase 2 Assessment Complications: No Follow up Care: N/A Patient Instructions Provided: N/A Maurizio Joe MD Mar 25, 2017 12:30
[2017-03-25] MEDS ORDERED: Piper-Tazo 3.375 Gm/50 mL D5W Minibag Plus - Q8H over 4 hrs IV ONE ×2 (13:30)
--- NOTE | 2017-03-25 13:43 | NUR ---
Post-op Pt. returned to [facility] from PACU at 1320. On arrival, she was alert, talking, oriented, and BUITRAGO. She was able to wiggle her R. toes. R. foot dressing CDI. Instructed pt. that no weight bearing on R. foot. Encouraged pt. to use call light for assistance before exiting bed. R. foot is elevated with a pillow.
--- NOTE | 2017-03-25 16:03 | PCM.PNMED ---
Subjective Date of Service Mar 25, 2017 Subjective Pt denies fever/chills overnight. Has limited sensation in R foot. Exam Vital Signs Vital Sign - Last Date Time Temp Pulse Resp B/P Pulse Ox O2 Delivery O2 Flow Rate FiO2 03/25/17 13:27 36.6 97 18 145/82 98 Room Air 03/25/17 13:05 2 Intake and Output 03/24/17 03/24/17 03/25/17 Cumulative From/Thru 15:00 23:00 07:00 03/20/17 14:44 - 03/25/17 05:50 Intake Total 836 ml 44217 ml Output Total 3400 ml Balance 836 ml 8040 ml Intake Oral 836 ml 5582 ml IV Total 5858 ml Output Urine Total 3400 ml # Voids 2 14 # Bowel Movements 0 1 Exam General: no apparent distress. AOX3. HEENT: Normocephalic, atraumatic, EOMI grossly, his membranes moist, poor dentition, neck supple without lymphadenopathy, conjunctiva pink Cardiovascular: Regular rate and rhythm, no clicks murmurs rubs, peripheral pulses 2/4 equal bilaterally Pulmonary: Clear to auscultation bilaterally, no W/R/R. Abdominal: Soft to palpation, bowel sounds present 4, no hepatosplenomegaly. Negative rebound. Extremities: No LE Edema. Right foot- Bandaged today, no drainage appreciated. Neuro: Neurologically grossly intact, strength is equal bilaterally upper and lower extremities. Dec sensation b/l LE due to neuropathy. IVs and Medications Medications Reviewed: Medications were reviewed in detail Lab and Diagnostics Result Diagram: 03/25/17 0605 03/24/17 0657 Microbiology Laboratory Tests Test 03/24/17 06:57 White Blood Count 13.2th/mm3 (3.8-10.1) Red Blood Count 4.16mil/mm3 (3.90-5.20) Hemoglobin 11.3g/dL (12.0-15.6) Hematocrit 36.1% (35.0-46.0) Mean Corpuscular Volume 86.8fL (81-100) Mean Corpuscular Hemoglobin 27.2pg (27.0-35.0) Mean Corpuscular Hemoglobin Concent 31.3% (32.0-37.0) Red Cell Distribution Width 15.0% (12.3-15.4) Platelet Count 492bil/L (150-400) Neutrophils (%) (Auto) 69% (40-74) Lymphocytes (%) (Auto) 17% (14-46) Monocytes (%) (Auto) 7% (4-12) Eosinophils (%) (Auto) 3% (0-5) Basophils (%) (Auto) 0% (0-3) Band Neutrophils % 4% (1-5) Sodium Level 134mEq/L (134-144) Potassium Level 5.6mEq/L (3.5-5.2) Chloride Level 96mEq/L (97-108) Carbon Dioxide Level 25mmol/L (18-29) Blood Urea Nitrogen 19mg/dL (6-24) Creatinine 0.69mg/dL (0.57-1.00) Estimat Glomerular Filtration Rate 131mL/min (>59) Glucose Level 221mg/dL (60-99) Calcium Level 8.9mg/dL (8.5-10.1) Total Bilirubin 0.2mg/dL (0.0-1.2) Aspartate Amino Transf (AST/SGOT) 27U/L (0-50) Alanine Aminotransferase (ALT/SGPT) 29U/L (0-32) Alkaline Phosphatase 426U/L (25-150) Total Protein 6.5g/dL (6.4-8.4) Albumin 3.3g/dL (3.4-5.0) Microbiology 03/20/17 Blood Culture - Preliminary, Resulted No growth at 2 days; culture examined... 03/22/17 MRSA (PCR) - Final, Complete 03/20/17 Urine Culture - Final, Complete Mixed Urogenital Simona 03/20/17 Gram Stain - Final, Resulted 03/20/17 Culture & Sensitivity - Preliminary, Resulted Staphylococcus Aureus 03/20/17 Anaerobic Culture - Preliminary, Resulted SERENITY GS (GRAM STAIN) Final 03/20/17-2218 GRAM STAIN RESULT NO POLYS SEEN MANY GRAM POS COCCI SERENITY CULT AEROBIC Preliminary 03/22/17-0751 Organism 1 STAPHYLOCOCCUS AUREUS COLONY COUNT/QUANTITY HEAVY GROWTH Oxacillin Susceptible Penicillin Resistant Staph spp. are Susceptible to Penicillin stable penicillins, Blactam/Blactamase inhibitor combinations, antistaphyloccal cephems, and carbapenems. 1. STAPHYLOCOCCUS AUREUS M.I.C Interp --------- ------ * CEFAZOLIN S * CLINDAMYCIN <=0.25 S * ERYTHROMYCIN >=8 R * LINEZOLID 2 S * MOXIFLOXACIN <=0.25 S * OXACILLIN SERENITY 0.5 S * RIFAMPIN <=0.5 S * TRIMETHOPRIM/SULFAMETHOXAZOLE <=10 S * VANCOMYCIN <=0.5 S X-Rays, CTs and MRIs 03/24/17 1226 MRI FOREFOOT RIGHT WITH AND WITHOUT CONTRAST 1. Prominent soft tissue ulcer along the dorsal lateral aspect of the forefoot extending to the underlying 5th metatarsal bone which demonstrates associated findings consistent with osteomyelitis as well as within the 5th proximal phalanx. 2. Abnormal edema and enhancement within the mid foot involving the middle and lateral cuneiforms, cuboid, and navicular also likely representing osteomyelitis. 3. Plantar soft tissue edema and enhancement within the mid foot associated with the adjacent bony changes most likely represent cellulitis and myositis. 4. Heterogeneous enhancing collection between the 4th and 5th metatarsals likely represents a phlegmon. 5. Peritendinitis along the distal extensor tendons without tenosynovial fluid. 03/20- Three-view right foot x-ray, nonweightbearing- No acute fracture. No osseous lesion. No evidence of soft tissue gas by plain film. If symptoms and/ or clinical suspicion for pathology Assessment & Plan 46-year-old woman with history of diabetes type I insulin using, hypertension, anxiety, presenting w/ non healing R foot wound admitted March 20 for treatment of right lateral foot abscess and cellulitis s/p bedside I&D 03/21-. 03/24- MRI Osteomyelitis- 5th metatarsal, 5th proximal phalanx, mid foot.Heterogeneous enhancing collection between the 4th and 5th metatarsals. s/ p 03/25- Partial amputations of the right fifth metatarsal and total amputation of the right fifth toe Sepsis due to Diabetic foot infection- w/ Acute right lateral foot abscess, cellulitis, and osteomyelitis, present on admission, active Temperature 37.8, 109, respirations 20, WBCs nearly 20, Source-Acute right lateral foot abscess and cellulitis. UCx- mixed UG Simona. Blood cultures- NGTD, Wound Cx- Positive for MSSA. -Lactic acid was normal. Elevated Procalcitonin- 0.2->0.18 -Vancomycin, Zosyn started initially on 03/20. Wound Cx- Positive for MSSA. This is consistent w/ prior admits. -IV Antibiotic, 03/23- Zosyn. Follow up bone biopsy. -Consider ID Consult. Osteomyelitis of R Foot- poa, active. s/p 03/25- Partial amputations of the right fifth metatarsal and total amputation of the right fifth toe - Pt has had multiple debridements bedside. -03/20- Right foot x-ray- No acute fracture. No osseous lesion. No evidence of soft tissue gas by plain film. - 03/24- MRI Osteomyelitis- 5th metatarsal, 5th proximal phalanx, mid foot.Heterogeneous enhancing collection between the 4th and 5th metatarsals likely represents a phlegmon. -Podiatry Dr Kadeem Bond following. Chronic Type I diabetes, insulin using, present on admission, uncontrolled. Patient's glucose at time of ER visit was 118, Overnight BG >300 on admit, now 221. Hemoglobin A1c 9.1%. home insulin regimen- uses Humalog 10-30 units w/ meals and Levemir 50u bid. - Substitute Levemir for Lantus. SSI Insulin. Modify mealtime when no longer NPO. -Diabetic diet. Transaminitis/ALP likely due to hepatic steatosis, present on admission, active. ALT and AST both elevated, review of history does not show previous elevations. ALP- 639 on admit, trending down, appears to be chronically elevated, usually less than 400. Acute hepatitis panel- negative. Pt does have hx of Hepatic Steatosis per [place] 2014. Possibly due to dehydration, shock liver unlikely given stable blood pressure. Avoid hepatic toxic medications at this time, such as acetaminophen. Chronic anxiety, present on admission, stable Continue home venlafaxine Dispo- expected length of stay greater than 2 midnights due to severity of presenting symptoms, risk of adverse events, and complexity of treatment plan. GI Prophylaxis: Not indicated VTE Prophylaxis: Sub-Q Heparin (Unfractionated) Resuscitation Status: DNR/DNI:Do Not Resuscitate/Intubate Pan Booth MD Mar 25, 2017 16:03
[2017-03-25] MEDS: Piper-Tazo 3.375 Gm/50 mL D5W Minibag Plus - Q8H over 4 hrs IV SCH ×2 (21:43)
[2017-03-26 00:15] VITALS: BP 114/74; PULSE 89; RESP 18; O2SAT 95
[2017-03-26] MEDS: Sodium Chloride LOK Flush 10 mL Syringe IVFLUSH SCH ×3 (00:24→18:13)
[2017-03-26] MEDS: Heparin 5,000 Unit/mL Inj SUBQ SCH ×3 (00:24→18:13)
--- NOTE | 2017-03-26 03:49 | NUR ---
Pain/activity At beginning of shift, pt reporting pain 10/10 aching to right foot. Pt given 5mg of Oxycodone and pain came down to 6/10 and "improving" per pt. Pt did get up out of bed and tried to use FWW but was bearing weight on right foot causing foot to bleed through juan antonio bandage. Pt instructed on importance of being NWB of foot and to use help to get to BR in order to be more successful. Right foot dressing changed. Original packing left in place and then wet to dry with NS gauze, kerlix and Juan Antonio wrap. Pt tolerated well. Leg is up on pillows, able to wiggle toes and pt reports sensation to the 4 toes. Pt still reporting pain 7/10 and was given 400 mg Motrin. Pt now sleeping and appears more comfortable. Pt is A/O x4 but Bed alarm in place to remind pt to call for assistance. Addendum: 03/26/17 at 0539 by BETTINA LANDIS RN Pt reporting Motrin better for pain control than oxycodone, pain now down to 3/10.
[2017-03-26] MEDS: Piper-Tazo 3.375 Gm/50 mL D5W Minibag Plus - Q8H over 4 hrs IV SCH ×6 (04:41→14:32)
[2017-03-26 04:43] VITALS: BP 136/79; PULSE 85; RESP 18; O2SAT 94
--- NOTE | 2017-03-26 06:15 | NUR ---
IV/ Antibiotics Pt IV infiltrated right before hanging Zosyn due this morning. Two nurses made attempts to place new IV, unsuccessful. Pt reports "IV therapy normally has to start them" Message left to IV therapy to please start IV as soon as possible since Zosyn now late.
[2017-03-26 06:46] LABS: BASOPHILS % (AUTO) 0.7 % (0-3); EOSINOPHILS % (AUTO) 2.5 % (0-5); MONOCYTES % (AUTO) 7.2 % (4-12); Mean Corpuscular Hemoglobin 27.7 pg (27.0-35.0); Mean Corpuscular Volume 86.4 fL (81-100); NEUTROPHILS % (AUTO) 65.8 % (40-74); Platelet Count 521 bil/L (150-400)
[2017-03-26] MEDS: Venlafaxine XR 75 mg ER24 Capsule PO SCH (08:08)
[2017-03-26] MEDS: Fluticasone 0.05% 15 Spray/2 Gm 16 Gm Nasal Spray NOSTRIL SCH (08:08)
[2017-03-26] MEDS: Insulin GLARgine 100 Unit/mL Syringe SUBQ SCH ×2 (08:09→21:35)
[2017-03-26] MEDS: Insulin LISPRO 300 Unit/3 mL Inj SUBQ SCH ×4 (08:10→21:29)
[2017-03-26 12:21] VITALS: BP 119/76; PULSE 86; RESP 18; O2SAT 93
--- NOTE | 2017-03-26 14:51 | PCM.PNPOD ---
Subjective Date of Service: Mar 26, 2017 Date of Service: Mar 26, 2017 Visit Information: Reason for Visit Diabetic Foot Infection,Sepsis Surgery/Surgery Date Post-Op Day # 1 Date of Admission: Mar 20, 2017 at 21:45 Hospital Day # Subjective: 46-year-old female evaluated resting comfortably in bed day 1 status post partial fifth ray resection and amputation of the right fifth toe. Patient denies any new issues or complaints today. Patient denies any recent history of fevers chills nausea or vomiting. Patient states she has no pain in her right foot. Postop General: No Complaints Gastrointestinal: Good Appetite Pain Management: PO Objective Vital Sign - Last Date Time Temp Pulse Resp B/P Pulse Ox O2 Delivery O2 Flow Rate FiO2 03/26/17 12:21 36.6 86 18 119/76 93 Room Air 03/25/17 13:05 2 Intake and Output 03/25/17 03/25/17 03/26/17 Cumulative From/Thru 15:00 23:00 07:00 03/20/17 14:44 - 03/26/17 04:45 Intake Total 1200 ml 1226 ml 950 ml 47434 ml Output Total 40 ml 800 ml 4240 ml Balance 1160 ml 1226 ml 150 ml 00125 ml Intake Oral 800 ml 1156 ml 950 ml 8488 ml IV Total 400 ml 70 ml 6328 ml Output Urine Total 800 ml 4200 ml Estimated Blood Loss 40 ml 40 ml # Voids 2 2 1 19 # Bowel Movements 1 0 2 Result Diagram: 03/26/17 0600 03/26/17 0600 Lab Test 03/20/17 16:35 03/20/17 22:14 03/21/17 05:40 03/22/17 07:25 Hemoglobin A1c 9.1% (4.8-5.6) Lactic Acid Level 1.8mmol/L (0.4-2.0) Urine Color Yellow (YELLOW) Urine Appearance Hazy (CLEAR,HAZY) Urine pH 5.5 (5.0-8.0) Urine Specific [place] 1.005 (1.003-1.035) Urine Protein Negativemg/dL (NEG,TRACE) Urine Glucose (UA) 250mg/dL (NEGATIVE) Urine Ketones Negativemg/dL (NEGATIVE) Urine Occult Blood Negative (NEGATIVE) Urine Nitrite Negative (NEGATIVE) Urine Bilirubin Negative (NEGATIVE) Urine Urobilinogen 2.0mg/dL (NORMAL) Urine Leukocyte Esterase Negative (NEGATIVE) Urine RBC 0-2/hpf (0-2) Urine WBC 0-5/hpf (0-5) Urine Epithelial Cells Many/hpf (NONE-MOD) Urine Crystals None seen (NONE SEEN) Urine Bacteria Moderate/hpf (NONE-FEW) Urine Hyaline Casts None/lpf (NONE) Urine Granular Casts None seen (NONE SEEN) Urine Waxy Casts None seen (NONE SEEN) Urine Red Blood Cell Casts None seen (NONE SEEN) Urine White Blood Cell Casts None seen (NONE SEEN) Urine Mucus None seen (None Seen) Urine Trichomonas None seen (NONE SEEN) Urine Yeast None (NONE SEEN) Urinalysis Comment None Urine Culture Reflexed Indicated Phosphorus Level 4.4mg/dL (2.5-4.9) Magnesium Level 2.4mg/dL (1.6-2.6) Hepatitis A IgM Antibody Negative (Negative) Hepatitis B Surface Antigen Negative (Negative) Hepatitis B Core IgM Antibody Negative (Negative) Hepatitis C Antibody 0.1s/co ratio (0.0-0.9) Hepatitis C Comment Comment (.) Vancomycin Level Trough 18.7mcg/mL Test 03/24/17 06:57 03/25/17 06:05 03/26/17 06:00 Band Neutrophils % 4% (1-5) Erythrocyte Sedimentation Rate 62mm/hr (0-32) C-Reactive Protein 3.8mg/dL (0.0-0.5) Procalcitonin 0.15ng/mL (0.00-0.08) White Blood Count 14.5th/mm3 (3.8-10.1) Red Blood Count 4.40mil/mm3 (3.90-5.20) Hemoglobin 12.2g/dL (12.0-15.6) Hematocrit 38.0% (35.0-46.0) Mean Corpuscular Volume 86.4fL (81-100) Mean Corpuscular Hemoglobin 27.7pg (27.0-35.0) Mean Corpuscular Hemoglobin Concent 32.1% (32.0-37.0) Red Cell Distribution Width 14.9% (12.3-15.4) Platelet Count 521bil/L (150-400) Neutrophils (%) (Auto) 65.8% (40-74) Lymphocytes (%) (Auto) 18.9% (14-46) Monocytes (%) (Auto) 7.2% (4-12) Eosinophils (%) (Auto) 2.5% (0-5) Basophils (%) (Auto) 0.7% (0-3) Sodium Level 138mEq/L (134-144) Potassium Level 5.1mEq/L (3.5-5.2) Chloride Level 99mEq/L (97-108) Carbon Dioxide Level 24mmol/L (18-29) Blood Urea Nitrogen 25mg/dL (6-24) Creatinine 0.81mg/dL (0.57-1.00) Estimat Glomerular Filtration Rate 109mL/min (>59) Glucose Level 153mg/dL (60-99) Calcium Level 9.5mg/dL (8.5-10.1) Total Bilirubin 0.2mg/dL (0.0-1.2) Aspartate Amino Transf (AST/SGOT) 26U/L (0-50) Alanine Aminotransferase (ALT/SGPT) 31U/L (0-32) Alkaline Phosphatase 389U/L (25-150) Total Protein 6.9g/dL (6.4-8.4) Albumin 3.8g/dL (3.4-5.0) Exam General: Alert, Oriented X3, Cooperative, No Acute Distress, Mild Distress Lungs: Clear to Auscultation, Normal Air Movement Lower Extremities: Right: Edema localized Extremity warm Lower Extremity Pulses: Palpable: Left Dorsalis Pedis Left Posterior Tibal Right Dorsalis Pedis Right Posterior Tibal Postop Sensory Motor: Distal Motor Intact, Motor 5/5, Decreased Sensation Podiatry WOUND : Wound Location/Description Right lateral foot incision is well coapted with all sutures intact and in place there is a defect of the distal fifth metatarsal amputation site measuring 2.5 cm x 2 cm x 1.5 cm in depth the wound bed is 90% granular with 10 % fibrotic slough. There is minimal surrounding erythema. Mild serosanguineous drainage is present with no purulent drainage noted. There is no exposed bone or tendon Assessment & Plan Impression Stable status post right partial fifth ray resection and fifth toe amputation Problems: Plan Patient appears to be doing quite well today. Her dressing was changed with Betadine soaked gauze to the defect site dry sterile gauze Kerlix and a mildly compressive Juan Antonio bandage to the right foot. At this time we will continue current IV antibiotic therapy and wait for wound cultures to return in order to narrow antibiotic choice. Patient is strictly nonweightbearing to her right foot. Plan for additional dressing change tomorrow with likely wound VAC placement. This patient would benefit from discharge on wound VAC to outpatient care likely at the end of this week. Patient had a slight elevation in her white blood cell count today following surgery yesterday, if her white blood cell count does not return to a more normalized level tomorrow consider searching for additional alternative source as the foot appears very stable today. VTE Prophylaxis: Sub-Q Heparin (Unfractionated) Meng Torres DPM Mar 26, 2017 14:50
--- NOTE | 2017-03-26 16:27 | CONS ---
[address] [address] CONSULTATION REPORT PATIENT: FILIBERTO ALBARRAN : 1970 MR#: [id number] ADMIT: 03/20/2017 JOB ID: [id number] DATE OF SERVICE: 03/26/2017 INFECTIOUS DISEASE CONSULTATION: I thank Dr. Booth for this timely consult. REASON FOR CONSULTATION: Right lateral forefoot diabetic foot infection due to MSSA with underlying osteomyelitis. HISTORY OF PRESENT ILLNESS: The patient is a 46-year-old woman known to me from an admission a couple years ago. At that time, she had a fairly severe but non osteomyelitic infection of her left foot due to MSSA which resolved after treatment with dalbavancin and a short course of oral Flagyl for possible associated anaerobes. In the intervening couple years, the patient has done relatively well until March 16 or when she was walking in her house with slippers and stepped on a "lupe tack" which stuck right up through her slipper and punctured her foot at the base of the 5th toe. This was mildly painful to her as she does have some underlying neuropathy and she did not think too much about it, but over the ensuing days, developed pain and swelling of the left lateral plantar foot. Eventually this brought her to medical attention and she was admitted to this facility back on March 20, which was roughly three days after the injury occurred. Imaging including plain films and MRI suggested there could be a developing Charcot joint, and/or osteomyelitis and a particular concern about osteomyelitis involving the 5th toe and the 5th metatarsal as well as possibly the 4th metatarsal and even some other bony structures. On the basis of these concerns, she was taken to the operating room by Dr. Torres on the and he performed a resection of the 5th toe as well as almost the entire 5th metatarsal. He told me that by the time he finished resecting there was hard bleeding bone. It looked pretty good but he did have a little bit of concern about the quality of the fourth metatarsal adjacent to the surgical site. I discussed these operative findings with him this afternoon on the telephone and also reviewed his postoperative note. This afternoon the patient is now postop one day and reports that she is feeling reasonably well. She has reduced sensation in that right foot and is not having a great deal of pain at the surgical site at this point. She has no fevers, no chills and really nothing in the way of constitutional symptoms. She discussed her home situation and we talked about different ways we might be able to provide a longer course of either IV or oral antibiotics as needed. PAST MEDICAL HISTORY: 1. Diabetes mellitus with peripheral neuropathy. 2. History of recurrent diabetic foot infections due to MSSA. 3. Hypothyroidism. 4. Depression. SOCIAL HISTORY: The patient lives with her two children near [place]. She does not smoke and really never has. She also does not consume alcohol and does not use illicit drugs. FAMILY HISTORY: Positive for tuberculosis in her mother. On her last admission in 2014, she told me about her mother's history of TB and I checked a QuantiFERON Gold which was completely negative with good mitogen response indicating that she was not infected despite living with her mother. REVIEW OF SYSTEMS: Was done. This afternoon, the patient has no headache. She has no acute visual change or sore throat. No stiff neck. No significant cough, shortness of breath, nausea, vomiting, diarrhea, dysuria, urgency or frequency. She has no new or significant pain in the joints. She is, of course, recently status post surgery on the right foot. Remainder of the review of systems negative. PHYSICAL EXAMINATION: Reveals an obese woman, looking older than her stated age of 46, lying supine in a hospital bed. Her BMI is 41.2 which is diagnostic of morbid obesity. Her weight is actually 106 kg but her height is only 160 cm. The patient is alert, lucid and in a good mood this afternoon. Head without trauma. Eyes without conjunctivitis. Oral cavity: No thrush or hairy leukoplakia. Her teeth are in fairly dismal condition with caries and missing teeth on both upper and lower. Her neck is supple without adenopathy or apparent JVD though due to her obesity it is a bit hard to tell. Her lungs are relatively clear. Cardiac tones regular rate and rhythm without murmur. Abdomen obese, soft, nontender without organomegaly or ascites. No suprapubic fullness is noted. She does not have a Wellington catheter. Her large joints are without any synovitis. The examination of the left foot reveals scars from prior debridements. Peripheral pulses are intact though perhaps slightly diminished. Capillary refill is a bit slow but not terribly so and there are no ulcers on the left foot. The right foot and ankle is wrapped in a large postop dressing applied by Dr. Torres at the conclusion of yesterday's surgery and there are plans to formally re-evaluate the surgical site tomorrow, so I did not remove the postop dressings. The toes that protrude from the dressing on the right foot are viable. The patient has decreased sensation in her feet bilaterally though still has some preserved sensation to touch. Grossly she is neurologically intact. We cannot really completely assessed her as she is bed bound at this point. LABORATORIES: Include white count started off at 20,000, dropped to 11 and is now 14. I do not see a consistent trend there at all. Hematocrit 38, platelet count 521. Sed rate 62. Creatinine is 0.81. LFTs are normal. Alk phos is slowly declining. It was elevated when she came in. It is now 389. CRP 3.8. Albumin 3.8. Procalcitonins are low and of no value really in osteo and should not check any more. Urinalysis without white cells. Serologic studies include negative hepatitis B and C serologies. Cultures from this admission include a culture of the foot abscess on the which once again grew MSSA. It is notable that this MSSA is quite sensitive to clinda which could represent an oral choice. It is also susceptible to linezolid, moxifloxacin, rifampin, Bactrim and vanco. The MRSA screen of the nares by PCR negative and a culture from surgery yesterday is pending but the Gram stain shows nothing. IMAGING: Includes a foot MRI that was done on the when she was admitted. Imaging includes a plain x-ray of the foot on the that did not show much. On the though, she had a better study, an MRI scan of the foot, which showed swelling along the lateral right forefoot with changes of the 5th proximal toe and metatarsal consistent with osteomyelitis. There is also abnormal edema in the middle and lateral cuneiform, cuboid and navicular bone which could represent osteo or could be related to her developing Charcot joint. Changes seen in the mid foot could represent cellulitis or myositis and a phlegmon was seen between the 4th and 5th metatarsals. Much of these abnormalities were encountered and removed yesterday by Dr. Torres. IMPRESSION: This is an unfortunate relatively young woman with diabetes and peripheral neuropathy as well as morbid obesity who is now back for the second time in about two years with a serious infection, this time involving the right foot. This infection started when she stepped on a tack and suffered a puncture wound around her distal 5th metatarsal. Over just a few days this evolved into an infection which according to Dr. Torres, had destroyed the metatarsophalangeal joint along the lateral foot there and required considerable resection. The patient is not a smoker but she does have diminished capillary refill to that area as well as neuropathy which is undoubtedly contributing to these problems. Optimal therapy for MSSA osteo would involve a prolonged course of a first-line anti MSSA drug such as nafcillin, oxacillin or cefazolin. To facilitate care, we might consider using daptomycin or some other IV agent. Another way to address this might be to give this relatively short course of IV antibiotics directed at her largely resected osteomyelitis and to finish with a long course of an oral antibiotic such as clindamycin or a combination of moxifloxacin plus rifampin in this case. RECOMMENDATIONS: 1. While she remains an inpatient here, will drop the Zosyn and instead switch to a combination of cefazolin IV and oral Flagyl. 2. Will continue to follow her CRP as well as closely monitor her course with Dr. Torres and the hospitalist team. 3. I would anticipate discharge towards the end of the week. Whether we will try and switch to a completely oral regimen or perhaps use IV for 2 or 3 weeks before she is completing therapy with an oral agent such as clindamycin remains an open question. which we will decide as we go forward here and see how her wound and her overall status progresses.
--- NOTE | 2017-03-26 16:46 | NUR ---
Social Work-continued d/c planning/ multidisciplinary rounds: Data:EMR reviewed. Pt is on day 6 of hospitalization for diabetic foot per H&P. Pt is not medically stable anticipate several more days. Pt followed by podiatry, podiatry stating that pt may need wound vac at discharge. ID saw pt today and pt currently on IV abx, anticipate IV vs PO at discharge. Pt is also no-weight bearing. SW to follow up with pt post MD order for services. SW will continue to follow. Assessment:pt who is independent at baseline. Plan:Pt to discharge home when medically stable via POV. SW to follow up with pt post MD order for services. SW will continue to follow. HAIDER Cedeno
--- NOTE | 2017-03-26 17:33 | PCM.PNMED ---
Subjective Date of Service Mar 26, 2017 Subjective Tolerating diet. No new c/o. Exam Vital Signs Vital Sign - Last Date Time Temp Pulse Resp B/P Pulse Ox O2 Delivery O2 Flow Rate FiO2 03/26/17 12:21 36.6 86 18 119/76 93 Room Air 03/25/17 13:05 2 Intake and Output 03/25/17 03/25/17 03/26/17 Cumulative From/Thru 15:00 23:00 07:00 03/20/17 14:44 - 03/26/17 04:45 Intake Total 1200 ml 1226 ml 950 ml 35003 ml Output Total 40 ml 800 ml 4240 ml Balance 1160 ml 1226 ml 150 ml 82791 ml Intake Oral 800 ml 1156 ml 950 ml 8488 ml IV Total 400 ml 70 ml 6328 ml Output Urine Total 800 ml 4200 ml Estimated Blood Loss 40 ml 40 ml # Voids 2 2 1 19 # Bowel Movements 1 0 2 Exam General: no apparent distress. AOX3. HEENT: Normocephalic, atraumatic, EOMI grossly, his membranes moist, poor dentition, neck supple without lymphadenopathy, conjunctiva pink Cardiovascular: Regular rate and rhythm, no clicks murmurs rubs, peripheral pulses 2/4 equal bilaterally Pulmonary: Clear to auscultation bilaterally, no W/R/R. Abdominal: Soft to palpation, bowel sounds present 4, no hepatosplenomegaly. Negative rebound. Extremities: No LE Edema. Right foot- Bandaged today, no drainage appreciated. Neuro: Neurologically grossly intact, strength is equal bilaterally upper and lower extremities. Dec sensation b/l LE due to neuropathy. IVs and Medications Medications Reviewed: Medications were reviewed in detail Lab and Diagnostics Result Diagram: 03/26/17 0600 03/26/17 0600 Microbiology Laboratory Tests Test 03/24/17 06:57 White Blood Count 13.2th/mm3 (3.8-10.1) Red Blood Count 4.16mil/mm3 (3.90-5.20) Hemoglobin 11.3g/dL (12.0-15.6) Hematocrit 36.1% (35.0-46.0) Mean Corpuscular Volume 86.8fL (81-100) Mean Corpuscular Hemoglobin 27.2pg (27.0-35.0) Mean Corpuscular Hemoglobin Concent 31.3% (32.0-37.0) Red Cell Distribution Width 15.0% (12.3-15.4) Platelet Count 492bil/L (150-400) Neutrophils (%) (Auto) 69% (40-74) Lymphocytes (%) (Auto) 17% (14-46) Monocytes (%) (Auto) 7% (4-12) Eosinophils (%) (Auto) 3% (0-5) Basophils (%) (Auto) 0% (0-3) Band Neutrophils % 4% (1-5) Sodium Level 134mEq/L (134-144) Potassium Level 5.6mEq/L (3.5-5.2) Chloride Level 96mEq/L (97-108) Carbon Dioxide Level 25mmol/L (18-29) Blood Urea Nitrogen 19mg/dL (6-24) Creatinine 0.69mg/dL (0.57-1.00) Estimat Glomerular Filtration Rate 131mL/min (>59) Glucose Level 221mg/dL (60-99) Calcium Level 8.9mg/dL (8.5-10.1) Total Bilirubin 0.2mg/dL (0.0-1.2) Aspartate Amino Transf (AST/SGOT) 27U/L (0-50) Alanine Aminotransferase (ALT/SGPT) 29U/L (0-32) Alkaline Phosphatase 426U/L (25-150) Total Protein 6.5g/dL (6.4-8.4) Albumin 3.3g/dL (3.4-5.0) Microbiology 03/20/17 Blood Culture - Preliminary, Resulted No growth at 2 days; culture examined... 03/22/17 MRSA (PCR) - Final, Complete 03/20/17 Urine Culture - Final, Complete Mixed Urogenital Simona 03/20/17 Gram Stain - Final, Resulted 03/20/17 Culture & Sensitivity - Preliminary, Resulted Staphylococcus Aureus 03/20/17 Anaerobic Culture - Preliminary, Resulted SERENITY GS (GRAM STAIN) Final 03/20/17-2217 GRAM STAIN RESULT NO POLYS SEEN MANY GRAM POS COCCI SERENITY CULT AEROBIC Preliminary 03/22/17-0751 Organism 1 STAPHYLOCOCCUS AUREUS COLONY COUNT/QUANTITY HEAVY GROWTH Oxacillin Susceptible Penicillin Resistant Staph spp. are Susceptible to Penicillin stable penicillins, Blactam/Blactamase inhibitor combinations, antistaphyloccal cephems, and carbapenems. 1. STAPHYLOCOCCUS AUREUS M.I.C Interp --------- ------ * CEFAZOLIN S * CLINDAMYCIN <=0.25 S * ERYTHROMYCIN >=8 R * LINEZOLID 2 S * MOXIFLOXACIN <=0.25 S * OXACILLIN SERENITY 0.5 S * RIFAMPIN <=0.5 S * TRIMETHOPRIM/SULFAMETHOXAZOLE <=10 S * VANCOMYCIN <=0.5 S X-Rays, CTs and MRIs 03/24/17 1226 MRI FOREFOOT RIGHT WITH AND WITHOUT CONTRAST 1. Prominent soft tissue ulcer along the dorsal lateral aspect of the forefoot extending to the underlying 5th metatarsal bone which demonstrates associated findings consistent with osteomyelitis as well as within the 5th proximal phalanx. 2. Abnormal edema and enhancement within the mid foot involving the middle and lateral cuneiforms, cuboid, and navicular also likely representing osteomyelitis. 3. Plantar soft tissue edema and enhancement within the mid foot associated with the adjacent bony changes most likely represent cellulitis and myositis. 4. Heterogeneous enhancing collection between the 4th and 5th metatarsals likely represents a phlegmon. 5. Peritendinitis along the distal extensor tendons without tenosynovial fluid. 03/20- Three-view right foot x-ray, nonweightbearing- No acute fracture. No osseous lesion. No evidence of soft tissue gas by plain film. If symptoms and/ or clinical suspicion for pathology Assessment & Plan 46-year-old woman with history of diabetes type I insulin using, hypertension, anxiety, presenting w/ non healing R foot wound admitted March 20 for treatment of right lateral foot abscess and cellulitis s/p bedside I&D 03/21-. 03/24- MRI Osteomyelitis- 5th metatarsal, 5th proximal phalanx, mid foot.Heterogeneous enhancing collection between the 4th and 5th metatarsals. s/ p 03/25- Partial amputations of the right fifth metatarsal and total amputation of the right fifth toe Sepsis due to Diabetic foot infection- w/ Acute right lateral foot abscess, cellulitis, and osteomyelitis, present on admission, active Temperature 37.8, 109, respirations 20, WBCs nearly 20, Source-Acute right lateral foot abscess and cellulitis. UCx- mixed UG Simona. Blood cultures- NGTD, Wound Cx- Positive for MSSA. -Lactic acid was normal. Elevated Procalcitonin- 0.2->0.18 -Vancomycin, Zosyn started initially on 03/20. Wound Cx- Positive for MSSA. This is consistent w/ prior admits. -IV Antibiotic, 03/23- Zosyn. Follow up bone biopsy. - ID Consult, Dr. Shelton consulted. Change Zosyn to cefazolin IV and oral Flagyl. Osteomyelitis of R Foot- poa, active. s/p 03/25- Partial amputations of the right fifth metatarsal and total amputation of the right fifth toe - Pt has had multiple debridements bedside. -03/20- Right foot x-ray- No acute fracture. No osseous lesion. No evidence of soft tissue gas by plain film. - 03/24- MRI Osteomyelitis- 5th metatarsal, 5th proximal phalanx, mid foot.Heterogeneous enhancing collection between the 4th and 5th metatarsals likely represents a phlegmon. -Podiatry following, Dr Bond and Dr. Torres Chronic Type I diabetes, insulin using, present on admission, uncontrolled. Patient's glucose at time of ER visit was 118, Overnight BG >300 on admit, now 221. Hemoglobin A1c 9.1%. home insulin regimen- uses Humalog 10-30 units w/ meals and Levemir 50u bid. - Substitute Levemir for Lantus. SSI Insulin. Modify mealtime when no longer NPO. -Diabetic diet. Transaminitis/ALP likely due to hepatic steatosis, present on admission, active. ALT and AST both elevated, review of history does not show previous elevations. ALP- 639 on admit, trending down, appears to be chronically elevated, usually less than 400. Acute hepatitis panel- negative. Pt does have hx of Hepatic Steatosis per [place] 2014. Possibly due to dehydration, shock liver unlikely given stable blood pressure. Avoid hepatic toxic medications at this time, such as acetaminophen. Chronic anxiety, present on admission, stable Continue home venlafaxine Dispo- expected length of stay greater than 2 midnights due to severity of presenting symptoms, risk of adverse events, and complexity of treatment plan. GI Prophylaxis: Not indicated VTE Prophylaxis: Sub-Q Heparin (Unfractionated) Resuscitation Status: DNR/DNI:Do Not Resuscitate/Intubate Pan Booth MD Mar 26, 2017 17:33
[2017-03-26] MEDS: CeFAZolin Inj 2,000 MG in Dextrose 5% 50 ML IV SCH (18:14)
--- NOTE | 2017-03-26 19:00 | NUR ---
Activity/Voiding Pt in bed for most of the day, reported that pt got up during NOC shift causing bleeding in foot. Instructed pt to call for assistance, non weight bearing on R foot, bed alarm placed. 1P assist to BSC, pt able to follow directions with stand and pivot. Pt had 1600mL output during single void. Instructed/educated pt on need to void more often. Pt states does not feel like she needs to go but will try. NOC shift to follow.
[2017-03-26 20:31] VITALS: BP 104/64; PULSE 72; RESP 18; O2SAT 94
[2017-03-26 21:31] VITALS: BP 120/69; PULSE 90; RESP 18; O2SAT 96
[2017-03-27] MEDS: Sodium Chloride LOK Flush 10 mL Syringe IVFLUSH SCH ×3 (00:30→16:40)
[2017-03-27] MEDS ORDERED: 0.9% Sodium Chloride 100 ML ONE (00:33)
[2017-03-27] MEDS: CeFAZolin Inj 2,000 MG in Dextrose 5% 50 ML IV SCH ×3 (00:39→16:41)
[2017-03-27] MEDS: Heparin 5,000 Unit/mL Inj SUBQ SCH ×3 (00:40→16:40)
--- NOTE | 2017-03-27 05:48 | NUR ---
Shift note uneventful night using call light compliant with weight bearing status pain free slept throughout night
[2017-03-27 06:45] VITALS: BP 128/73; PULSE 93; RESP 18; O2SAT 96
[2017-03-27] MEDS: Venlafaxine XR 75 mg ER24 Capsule PO SCH (09:03)
[2017-03-27] MEDS: Fluticasone 0.05% 15 Spray/2 Gm 16 Gm Nasal Spray NOSTRIL SCH (09:03)
[2017-03-27] MEDS: Insulin LISPRO 300 Unit/3 mL Inj SUBQ SCH ×5 (09:09→21:46)
[2017-03-27] MEDS: Insulin GLARgine 100 Unit/mL Syringe SUBQ SCH ×2 (09:10→21:46)
[2017-03-27 09:37] LABS: Mean Corpuscular Hemoglobin 27.3 pg (27.0-35.0); Mean Corpuscular Volume 83.6 fL (81-100); Platelet Count 523 bil/L (150-400)
[2017-03-27 09:59] LABS: BASOPHILS % (AUTO) 0 % (0-3); EOSINOPHILS % (AUTO) 1 % (0-5); MONOCYTES % (AUTO) 8 % (4-12); NEUTROPHILS % (AUTO) 70 % (40-74)
--- NOTE | 2017-03-27 10:40 | PROG NOTE ---
[address] [address] PROGRESS NOTE PATIENT: FILIBERTO ALBARRAN : 1970 MR#: [id number] ADMIT: 03/20/2017 JOB ID: [id number] DATE: 03/27/2017 INFECTIOUS DISEASE FOLLOWUP NOTE: REASON FOR FOLLOWUP: Osteomyelitis of right lateral foot in a diabetic. INTERVAL HISTORY: Overnight, the patient reports she has been feeling better. She has no fevers, chills, or sweats. No sore throat, cough, shortness of breath, nausea, vomiting, or diarrhea. No problems with the IV in her left upper extremity, and no pain at all in her recently operated right foot. PHYSICAL EXAMINATION: Reveals a comfortable woman, in no acute distress. She has been afebrile really since admission. Current temp 36.6, pulse 93, respiratory rate 18, blood pressure 128/73. She is saturating well on room air and in no acute distress. Examination of her mental status shows to be clear. She has poor dentition, as was previously noted. Her lungs are clear. Cardiac tones without new murmur. Abdomen soft and nontender. Her right foot is wrapped in a dressing, which the parachute mender is going to change later today, so I did not. The area above and below the dressing, however, looked completely benign. There is no evidence for phlebitis around her IV. LABORATORIES: Include a white count which is slowly and steadily rising from basically 20,000 on admission. It dropped down to 11 and has now climbed back up to 17,000. The diff includes 3% myelocytes but otherwise 70% segs, 18% lymphs, platelets stable at 523,000. Creatinine 0.81. LFT are normal except for an alk phos 389, which is actually dropping. Procalcitonin 0.15, and is of little value in this circumstance, and I would consider than normal. Hep C is negative. Recall that the culture from the foot on the grew MSSA. The followup culture on the is pending and so far, there is no growth, however, at two days. IMPRESSION: This patient clearly had osteomyelitis involving the 5th toe, as well as the 5th ray, and these areas have been resected, and we discussed this yesterday with Dr. Torres. We are currently treating with IV antibiotics including cefazolin and Flagyl. Whether or not the patient could be transitioned to oral therapy and when such a transition could occur is a bit unclear based upon my review of the literature and personal experience. She is already into her eighth day of IV therapy which I think is a good start and if CRP is dropping and the foot looks good, I think we might consider an early change to oral therapy depending on what the podiatrists feel. RECOMMENDATIONS: 1. While she is here will continue with cefazolin in high doses, as well as some oral Flagyl. 2. I am unsure as to the cause of her high white count but she does not appear infected at this point, and I would be inclined to follow along closely. 3. Repeat CRP will be ordered. The last value was 3.8 a couple of days ago. If this is dropping smartly, then I think we could consider a transition to clindamycin oral therapy in the near future, perhaps with a single dose of dalbavancin to bridge between the IV and oral regimen. 4. Will continue to follow this patient with you with plans, hopefully, for discharge in the next couple of days.
[2017-03-27 13:15] VITALS: BP 122/77; PULSE 92; RESP 18; O2SAT 95
--- NOTE | 2017-03-27 13:42 | NUR ---
Inpatient Wound Nurse Patient seen by CWON RN with Dr. Crystal for NPWT placement. Patient denied pain, pleasant and cooperative. R lateral foot at 5th toe, incision beefy red, sutures intact. Wound was cleansed, periwound swabbed with povidone iodine and draped. One layer of white foam was placed onto wound bed, then black foam as second layer. Seal obtained right away, 125 low continuous. CWON will change packing on Saturday, Dr. Crystal aware of plan.
--- NOTE | 2017-03-27 13:54 | NUR ---
NUTRITION FOLLOW-UP: ASSESS: 46 YO Female admitted with ulceration of R lateral foot with abscess, cellulitis and likely osteomyelitis. Pt is s/p partial R metatarsal and complete 5 toe amputation. Pt with good PO intake. PMHX: Type I DM, diabetic foot ulcer, neuropathy, hypothyroidism, depression, anxiety, dyslipidemia, HTN. DIET: Diabetic, Glucerna with dinner. PO 85-100% LABS: Reviewed. Alb 3.8, glu 153, BUN 25. MEDS: Reviewed GI: BM x 1 (03/25) SKIN: POD #2 for partial R metatarsal and complete 5 toe amputation with wound vac. WEIGHT: 106.3 kg. Admit wt:108.2 kg BMI: 42.0 Adj BW: 66.25 kg. EST.NEEDS (OBESITY, WOUND): 5261-3620 kcals (25-30 kcals/kg Adj. BW), 80-100 g protein (1.2-1.5 g/kg Adj BW) NUTRITION DIAGNOSIS: (1) Increased nutrient needs related to increased demand for nutrients for wound healing as evidenced by chronic ulcer s/p amputation -- PERSISTS. INTERVENTION: (1) Continue to send glucerna with dinner meal. (2) Diabetic diet education provided 03/21. MONITOR/EVALUATE: PO intake, labs, wounds, nutritional status. Follow per low nutritional risk guidelines.
--- NOTE | 2017-03-27 14:08 | PCM.PNMED ---
Subjective Date of Service Mar 27, 2017 Subjective pt denied pain or fever chills, tolerating two iv abx, pod, ID on board Exam Vital Signs Vital Sign - Last Date Time Temp Pulse Resp B/P Pulse Ox O2 Delivery O2 Flow Rate FiO2 03/27/17 06:45 36.6 93 18 128/73 96 Room Air 03/25/17 13:05 2 Intake and Output 03/26/17 03/26/17 03/27/17 Cumulative From/Thru 15:00 23:00 07:00 03/20/17 14:44 - 03/27/17 06:57 Intake Total 572 ml 919 ml 52666 ml Output Total 1600 ml 2300 ml 8140 ml Balance -1028 ml -1381 ml 8167 ml Intake Oral 572 ml 600 ml 9660 ml IV Total 319 ml 6647 ml Output Urine Total 1600 ml 2300 ml 8100 ml Estimated Blood Loss 40 ml # Voids 19 # Bowel Movements 2 Exam NAD, comfortably laying down on the bed no JVD, MMM, no LAD RRR, nl s1, s2 no mrg CTAB, no w,c S,ND,NT,normoactive BS+ RLE sterilely dressed IVs and Medications Medications Reviewed: Medications were reviewed in detail Lab and Diagnostics Result Diagram: 03/27/17 0900 03/26/17 0600 Microbiology Laboratory Tests Test 03/24/17 06:57 White Blood Count 13.2th/mm3 (3.8-10.1) Red Blood Count 4.16mil/mm3 (3.90-5.20) Hemoglobin 11.3g/dL (12.0-15.6) Hematocrit 36.1% (35.0-46.0) Mean Corpuscular Volume 86.8fL (81-100) Mean Corpuscular Hemoglobin 27.2pg (27.0-35.0) Mean Corpuscular Hemoglobin Concent 31.3% (32.0-37.0) Red Cell Distribution Width 15.0% (12.3-15.4) Platelet Count 492bil/L (150-400) Neutrophils (%) (Auto) 69% (40-74) Lymphocytes (%) (Auto) 17% (14-46) Monocytes (%) (Auto) 7% (4-12) Eosinophils (%) (Auto) 3% (0-5) Basophils (%) (Auto) 0% (0-3) Band Neutrophils % 4% (1-5) Sodium Level 134mEq/L (134-144) Potassium Level 5.6mEq/L (3.5-5.2) Chloride Level 96mEq/L (97-108) Carbon Dioxide Level 25mmol/L (18-29) Blood Urea Nitrogen 19mg/dL (6-24) Creatinine 0.69mg/dL (0.57-1.00) Estimat Glomerular Filtration Rate 131mL/min (>59) Glucose Level 221mg/dL (60-99) Calcium Level 8.9mg/dL (8.5-10.1) Total Bilirubin 0.2mg/dL (0.0-1.2) Aspartate Amino Transf (AST/SGOT) 27U/L (0-50) Alanine Aminotransferase (ALT/SGPT) 29U/L (0-32) Alkaline Phosphatase 426U/L (25-150) Total Protein 6.5g/dL (6.4-8.4) Albumin 3.3g/dL (3.4-5.0) Microbiology 03/20/17 Blood Culture - Preliminary, Resulted No growth at 2 days; culture examined... 03/22/17 MRSA (PCR) - Final, Complete 03/20/17 Urine Culture - Final, Complete Mixed Urogenital Simona 03/20/17 Gram Stain - Final, Resulted 03/20/17 Culture & Sensitivity - Preliminary, Resulted Staphylococcus Aureus 03/20/17 Anaerobic Culture - Preliminary, Resulted SERENITY GS (GRAM STAIN) Final 03/20/17-0312 GRAM STAIN RESULT NO POLYS SEEN MANY GRAM POS COCCI SERENITY CULT AEROBIC Preliminary 03/22/17-0751 Organism 1 STAPHYLOCOCCUS AUREUS COLONY COUNT/QUANTITY HEAVY GROWTH Oxacillin Susceptible Penicillin Resistant Staph spp. are Susceptible to Penicillin stable penicillins, Blactam/Blactamase inhibitor combinations, antistaphyloccal cephems, and carbapenems. 1. STAPHYLOCOCCUS AUREUS M.I.C Interp --------- ------ * CEFAZOLIN S * CLINDAMYCIN <=0.25 S * ERYTHROMYCIN >=8 R * LINEZOLID 2 S * MOXIFLOXACIN <=0.25 S * OXACILLIN SERENITY 0.5 S * RIFAMPIN <=0.5 S * TRIMETHOPRIM/SULFAMETHOXAZOLE <=10 S * VANCOMYCIN <=0.5 S X-Rays, CTs and MRIs 03/24/17 1226 MRI FOREFOOT RIGHT WITH AND WITHOUT CONTRAST 1. Prominent soft tissue ulcer along the dorsal lateral aspect of the forefoot extending to the underlying 5th metatarsal bone which demonstrates associated findings consistent with osteomyelitis as well as within the 5th proximal phalanx. 2. Abnormal edema and enhancement within the mid foot involving the middle and lateral cuneiforms, cuboid, and navicular also likely representing osteomyelitis. 3. Plantar soft tissue edema and enhancement within the mid foot associated with the adjacent bony changes most likely represent cellulitis and myositis. 4. Heterogeneous enhancing collection between the 4th and 5th metatarsals likely represents a phlegmon. 5. Peritendinitis along the distal extensor tendons without tenosynovial fluid. 03/20- Three-view right foot x-ray, nonweightbearing- No acute fracture. No osseous lesion. No evidence of soft tissue gas by plain film. If symptoms and/ or clinical suspicion for pathology Assessment & Plan 46-year-old woman with history of diabetes type I insulin using, hypertension, anxiety, presenting w/ non healing R foot wound admitted March 20 for treatment of right lateral foot abscess and cellulitis s/p bedside I&D 03/21-. 03/24- MRI Osteomyelitis- 5th metatarsal, 5th proximal phalanx, mid foot.Heterogeneous enhancing collection between the 4th and 5th metatarsals. s/ p 03/25- Partial amputations of the right fifth metatarsal and total amputation of the right fifth toe Sepsis due to Diabetic foot infection- w/ Acute right lateral foot abscess, cellulitis, and osteomyelitis, present on admission, active Temperature 37.8, 109, respirations 20, WBCs nearly 20, Source-Acute right lateral foot abscess and cellulitis. UCx- mixed UG Simona. Blood cultures- NGTD, Wound Cx- Positive for MSSA. -pt remained clinically stable with current tx -Lactic acid was normal. Elevated Procalcitonin- 0.2->0.18 -Vancomycin, Zosyn started initially on 03/20. Wound Cx- Positive for MSSA. This is consistent w/ prior admits. -IV Antibiotic, 03/23- Zosyn. ID Consult, Dr. Shelton consulted. Change Zosyn to cefazolin IV and oral Flagyl. Osteomyelitis of R Foot- poa, active. s/p 03/25- Partial amputations of the right fifth metatarsal and total amputation of the right fifth toe - Pt has had multiple debridements bedside. -03/20- Right foot x-ray- No acute fracture. No osseous lesion. No evidence of soft tissue gas by plain film. - 03/24- MRI Osteomyelitis- 5th metatarsal, 5th proximal phalanx, mid foot.Heterogeneous enhancing collection between the 4th and 5th metatarsals likely represents a phlegmon. -Podiatry following, Dr Bond and Dr. Torres Chronic Type I diabetes, insulin using, present on admission, uncontrolled. Patient's glucose at time of ER visit was 118, Overnight BG >300 on admit, now 221. Hemoglobin A1c 9.1%. home insulin regimen- uses Humalog 10-30 units w/ meals and Levemir 50u bid. -glc in target 153 in fasting this AM - Substitute Levemir for Lantus. SSI Insulin. Modify mealtime when no longer NPO. -Diabetic diet. Transaminitis/ALP likely due to hepatic steatosis, present on admission, active. ALT and AST both elevated, review of history does not show previous elevations. ALP- 639 on admit, trending down, appears to be chronically elevated, usually less than 400. Acute hepatitis panel- negative. Pt does have hx of Hepatic Steatosis per [place] 2015. Possibly due to dehydration, shock liver unlikely given stable blood pressure. Avoid hepatic toxic medications at this time, such as acetaminophen. Chronic anxiety, present on admission, stable Continue home venlafaxine Dispo- likely prolonged, needs iv abx upon d/c with cefazolin. GI Prophylaxis: Not indicated VTE Prophylaxis: Sub-Q Heparin (Unfractionated) Resuscitation Status: DNR/DNI:Do Not Resuscitate/Intubate Time spent 35min Demetria Akins MD Mar 27, 2017 11:32
--- NOTE | 2017-03-27 18:07 | NUR ---
Activity/Pain Patient up with standby assist to BSC to void. Using left foot to weight bear and pivot. After being up, patient complained of pain in right foot. Medicated with ordered analgesic with good relief. Wound vac to right foot;dressing dry and intact.
--- NOTE | 2017-03-27 18:23 | PCM.PNPOD ---
Subjective Date of Service: Mar 27, 2017 Date of Service: Mar 27, 2017 Visit Information: Reason for Visit Diabetic Foot Infection,Sepsis Surgery/Surgery Date Post-Op Day # Date of Admission: Mar 20, 2017 at 21:45 Hospital Day # Subjective: Patient seen at bedside for initiation of NPWT to right foot. No new complaints. Gastrointestinal: Good Appetite Pain Management: PO, Good Pain Control Postop Activity: Ambulate with Assist Objective Vital Sign - Last Date Time Temp Pulse Resp B/P Pulse Ox O2 Delivery O2 Flow Rate FiO2 03/27/17 13:15 36.6 92 18 122/77 95 Room Air 03/25/17 13:05 2 Intake and Output 03/26/17 03/26/17 03/27/17 Cumulative From/Thru 15:00 23:00 07:00 03/20/17 14:44 - 03/27/17 06:57 Intake Total 572 ml 919 ml 39020 ml Output Total 1600 ml 2300 ml 8140 ml Balance -1028 ml -1381 ml 8167 ml Intake Oral 572 ml 600 ml 9660 ml IV Total 319 ml 6647 ml Output Urine Total 1600 ml 2300 ml 8100 ml Estimated Blood Loss 40 ml # Voids 19 # Bowel Movements 2 Result Diagram: 03/27/17 0900 03/26/17 0600 Lab Test 03/20/17 16:35 03/20/17 22:14 03/21/17 05:40 03/22/17 07:25 Hemoglobin A1c 9.1% (4.8-5.6) Lactic Acid Level 1.8mmol/L (0.4-2.0) Urine Color Yellow (YELLOW) Urine Appearance Hazy (CLEAR,HAZY) Urine pH 5.5 (5.0-8.0) Urine Specific [place] 1.005 (1.003-1.035) Urine Protein Negativemg/dL (NEG,TRACE) Urine Glucose (UA) 250mg/dL (NEGATIVE) Urine Ketones Negativemg/dL (NEGATIVE) Urine Occult Blood Negative (NEGATIVE) Urine Nitrite Negative (NEGATIVE) Urine Bilirubin Negative (NEGATIVE) Urine Urobilinogen 2.0mg/dL (NORMAL) Urine Leukocyte Esterase Negative (NEGATIVE) Urine RBC 0-2/hpf (0-2) Urine WBC 0-5/hpf (0-5) Urine Epithelial Cells Many/hpf (NONE-MOD) Urine Crystals None seen (NONE SEEN) Urine Bacteria Moderate/hpf (NONE-FEW) Urine Hyaline Casts None/lpf (NONE) Urine Granular Casts None seen (NONE SEEN) Urine Waxy Casts None seen (NONE SEEN) Urine Red Blood Cell Casts None seen (NONE SEEN) Urine White Blood Cell Casts None seen (NONE SEEN) Urine Mucus None seen (None Seen) Urine Trichomonas None seen (NONE SEEN) Urine Yeast None (NONE SEEN) Urinalysis Comment None Urine Culture Reflexed Indicated Phosphorus Level 4.4mg/dL (2.5-4.9) Magnesium Level 2.4mg/dL (1.6-2.6) Hepatitis A IgM Antibody Negative (Negative) Hepatitis B Surface Antigen Negative (Negative) Hepatitis B Core IgM Antibody Negative (Negative) Hepatitis C Antibody 0.1s/co ratio (0.0-0.9) Hepatitis C Comment Comment (.) Vancomycin Level Trough 18.7mcg/mL Test 03/24/17 06:57 03/25/17 06:05 03/26/17 06:00 03/27/17 09:00 Band Neutrophils % 4% (1-5) Erythrocyte Sedimentation Rate 62mm/hr (0-32) Procalcitonin 0.15ng/mL (0.00-0.08) Sodium Level 138mEq/L (134-144) Potassium Level 5.1mEq/L (3.5-5.2) Chloride Level 99mEq/L (97-108) Carbon Dioxide Level 24mmol/L (18-29) Blood Urea Nitrogen 25mg/dL (6-24) Creatinine 0.81mg/dL (0.57-1.00) Estimat Glomerular Filtration Rate 109mL/min (>59) Glucose Level 153mg/dL (60-99) Calcium Level 9.5mg/dL (8.5-10.1) Total Bilirubin 0.2mg/dL (0.0-1.2) Aspartate Amino Transf (AST/SGOT) 26U/L (0-50) Alanine Aminotransferase (ALT/SGPT) 31U/L (0-32) Alkaline Phosphatase 389U/L (25-150) Total Protein 6.9g/dL (6.4-8.4) Albumin 3.8g/dL (3.4-5.0) White Blood Count 17.6th/mm3 (3.8-10.1) Red Blood Count 4.50mil/mm3 (3.90-5.20) Hemoglobin 12.3g/dL (12.0-15.6) Hematocrit 37.6% (35.0-46.0) Mean Corpuscular Volume 83.6fL (81-100) Mean Corpuscular Hemoglobin 27.3pg (27.0-35.0) Mean Corpuscular Hemoglobin Concent 32.7% (32.0-37.0) Red Cell Distribution Width 15.0% (12.3-15.4) Platelet Count 523bil/L (150-400) Neutrophils (%) (Auto) 70% (40-74) Lymphocytes (%) (Auto) 18% (14-46) Monocytes (%) (Auto) 8% (4-12) Eosinophils (%) (Auto) 1% (0-5) Basophils (%) (Auto) 0% (0-3) Myelocytes % 3% (0-0) C-Reactive Protein 5.1mg/dL (0.0-0.5) Exam General: Alert, Oriented X3, Cooperative, No Acute Distress, Mild Distress Lungs: Clear to Auscultation, Normal Air Movement Lower Extremities: Right: Edema localized (improving) Extremity warm (cellulitis improved) Lower Extremity Pulses: Palpable: Left Dorsalis Pedis Left Posterior Tibal Right Dorsalis Pedis Right Posterior Tibal Postop Sensory Motor: Distal Motor Intact, Motor 5/5, Decreased Sensation Podiatry WOUND : Wound Location/Description 2.5 cm x 2 cm x 1.5 cm right lateral wound, central to the existing incisional line. Healthy appearing red tissue deep to the incision, fat and connective tissue at plantar margin. Sutures in place. 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 Tubing secured to avoid pressure on skin and bony prominences. Status: Acute ICD Code: E11.621 VTE Prophylaxis: Sub-Q Heparin (Unfractionated) Velvet Crystal DPM Mar 27, 2017 18:23
[2017-03-27 20:29] VITALS: BP 134/81; PULSE 94; RESP 18; O2SAT 97
[2017-03-28] MEDS: Sodium Chloride LOK Flush 10 mL Syringe IVFLUSH SCH ×3 (00:30→15:25)
[2017-03-28] MEDS: Heparin 5,000 Unit/mL Inj SUBQ SCH ×3 (01:43→17:12)
[2017-03-28] MEDS: CeFAZolin Inj 2,000 MG in Dextrose 5% 50 ML IV SCH ×3 (01:44→17:12)
[2017-03-28 06:30] LABS: Mean Corpuscular Hemoglobin 27.6 pg (27.0-35.0); Mean Corpuscular Volume 84.2 fL (81-100); Platelet Count 502 bil/L (150-400)
[2017-03-28 07:38] LABS: BASOPHILS % (AUTO) 1 % (0-3); EOSINOPHILS % (AUTO) 1 % (0-5); MONOCYTES % (AUTO) 3 % (4-12); NEUTROPHILS % (AUTO) 65 % (40-74)
[2017-03-28] MEDS: Insulin LISPRO 300 Unit/3 mL Inj SUBQ SCH ×4 (08:04→21:41)
[2017-03-28] MEDS: Insulin GLARgine 100 Unit/mL Syringe SUBQ SCH ×2 (08:05→21:37)
[2017-03-28 08:46] VITALS: BP 108/69; PULSE 84; RESP 18; O2SAT 96
[2017-03-28] MEDS: Venlafaxine XR 75 mg ER24 Capsule PO SCH (08:53)
[2017-03-28] MEDS: Fluticasone 0.05% 15 Spray/2 Gm 16 Gm Nasal Spray NOSTRIL SCH (08:55)
--- NOTE | 2017-03-28 10:29 | PROG NOTE ---
[address] [address] PROGRESS NOTE PATIENT: FILIBERTO ALBARRAN : 1970 MR#: [id number] ADMIT: 03/20/2017 JOB ID: [id number] DATE: 03/28/2017 REASON FOR FOLLOWUP: Severe diabetic foot infection with osteomyelitis due to MSSA. INTERVAL HISTORY: Overnight, the patient has been free of fevers, chills, or sweats. No significant cough, nausea, vomiting, or diarrhea. She has minimal, if any, pain in her right foot, and has a wound VAC currently applied to the right lateral foot. PHYSICAL EXAMINATION: Reveals an afebrile woman, who has been afebrile throughout this week-long hospital stay. She is in no acute distress. Temp 36.4, pulse 84, respiratory rate 18, blood pressure 108/69. She is saturating 96% on room air, and is in no acute distress. Oral cavity: Negative. Lungs: Clear. Abdomen: Soft and nontender. The right foot has a wound VAC present over the right lateral forefoot at the site of the fifth ray amputation, and note that she also has lost her right fifth toe. There is no cellulitis around the wound VAC. LABORATORIES: Include a white count which is persistent at 14,000, platelet count 502. Still with 1% metamyelocytes. Her creatinine is 0.81. Her AST and ALT are normal. Her alk phos is 389. Albumin 3.8. Procalcitonin 0.15, and it is not valuable in following osteo. Hepatitis C is negative. Culture from the toe that was amputated is negative. A prior culture of the foot though yielded MSSA. Blood cultures negative. IMAGING DATA: We have no new imaging. IMPRESSION: This is an unfortunate 46-year-old woman with diabetes and a severe right foot infection which has led to resection of the fifth metatarsal, as well as the fifth toe, and concerns about residual infection. It is a complicated case from a social economic point of view. She lives alone in a single room she rents from an elderly gentleman in [place]. She is estranged from her teenage son, and her college-age daughter is off to college and not available to help her, which leaves her living completely alone. She is not at all confident in her ability to receive IV antibiotics at home, and yet, does not wish to enter into a [facility] facility. I had considered a transition to oral antibiotics, to complete six weeks of therapy using clindamycin, but I am not completely sanguine about that plan at this point because of her CRP, which remains elevated, as well as her leukocytosis. One possible novel way out of this case would be to use dalbavancin as a long-acting IV antibiotic with potential applicability in osteomyelitis. This has not been well-studied in the literature, but there is an article by Lynda, which suggests that there are excellent bone levels of dalbavancin for at least eight weeks or so after two consecutive weekly doses. A recent article in Clinical Infectious Disease suggested synergy between vancomycin and clindamycin in this circumstance, and I think that there is a good chance that we would also see synergy between dalbavancin, as it is closer related to vancomycin. RECOMMENDATIONS: 1. I will give the patient 1.5 g of dalbavancin today, and repeat that dose in one week, on April 04, in the [facility]. 2. We will repeat labs next week when she comes to the [facility]. 3. The patient should be discharged on clindamycin 300 mg p.o. q.i.d., for a total course which will take us through May 02. This will be five more weeks of oral clindamycin. 4. I would like to see the patient in my clinic on April 17. 5. I think she could be discharged at any time from the ID point of view, with the proviso that she return on April 04 for that dose of dalbavancin, and to see me April 17, while she continues to receive clindamycin 300 p.o. q.i.d. through May 02. [facility] HOSPITALMirna
[2017-03-28] MEDS ORDERED: Dalbavancin Inj 1,500 MG in Dextrose 5% 500 ML IV ONE (11:25)
--- NOTE | 2017-03-28 11:58 | PCM.PNMED ---
Subjective Date of Service Mar 28, 2017 Subjective no overnight event Wound Vac placed awaits wound culture denied any complaints, eating well, good appetite Exam Vital Signs Vital Sign - Last Date Time Temp Pulse Resp B/P Pulse Ox O2 Delivery O2 Flow Rate FiO2 03/28/17 08:46 36.4 84 18 108/69 96 Room Air 03/25/17 13:05 2 Intake and Output 03/27/17 03/27/17 03/28/17 Cumulative From/Thru 15:00 23:00 07:00 03/20/17 14:44 - 03/28/17 05:33 Intake Total 476 ml 837 ml 83091 ml Output Total 700 ml 2750 ml 41474 ml Balance -224 ml -1913 ml 6030 ml Intake Oral 476 ml 837 ml 58131 ml IV Total 6647 ml Output Urine Total 700 ml 2750 ml 11442 ml Estimated Blood Loss 40 ml # Voids 19 # Bowel Movements 0 2 Exam NAD, comfortably laying down on the bed no JVD, MMM, no LAD RRR, nl s1, s2 no mrg CTAB, no w,c S,ND,NT,normoactive BS+ RLE in Wound Vac placed IVs and Medications Medications Reviewed: Medications were reviewed in detail Lab and Diagnostics Result Diagram: 03/28/17 0549 03/26/17 0600 Microbiology Laboratory Tests Test 03/24/17 06:57 White Blood Count 13.2th/mm3 (3.8-10.1) Red Blood Count 4.16mil/mm3 (3.90-5.20) Hemoglobin 11.3g/dL (12.0-15.6) Hematocrit 36.1% (35.0-46.0) Mean Corpuscular Volume 86.8fL (81-100) Mean Corpuscular Hemoglobin 27.2pg (27.0-35.0) Mean Corpuscular Hemoglobin Concent 31.3% (32.0-37.0) Red Cell Distribution Width 15.0% (12.3-15.4) Platelet Count 492bil/L (150-400) Neutrophils (%) (Auto) 69% (40-74) Lymphocytes (%) (Auto) 17% (14-46) Monocytes (%) (Auto) 7% (4-12) Eosinophils (%) (Auto) 3% (0-5) Basophils (%) (Auto) 0% (0-3) Band Neutrophils % 4% (1-5) Sodium Level 134mEq/L (134-144) Potassium Level 5.6mEq/L (3.5-5.2) Chloride Level 96mEq/L (97-108) Carbon Dioxide Level 25mmol/L (18-29) Blood Urea Nitrogen 19mg/dL (6-24) Creatinine 0.69mg/dL (0.57-1.00) Estimat Glomerular Filtration Rate 131mL/min (>59) Glucose Level 221mg/dL (60-99) Calcium Level 8.9mg/dL (8.5-10.1) Total Bilirubin 0.2mg/dL (0.0-1.2) Aspartate Amino Transf (AST/SGOT) 27U/L (0-50) Alanine Aminotransferase (ALT/SGPT) 29U/L (0-32) Alkaline Phosphatase 426U/L (25-150) Total Protein 6.5g/dL (6.4-8.4) Albumin 3.3g/dL (3.4-5.0) Microbiology 03/20/17 Blood Culture - Preliminary, Resulted No growth at 2 days; culture examined... 03/22/17 MRSA (PCR) - Final, Complete 03/20/17 Urine Culture - Final, Complete Mixed Urogenital Simona 03/20/17 Gram Stain - Final, Resulted 03/20/17 Culture & Sensitivity - Preliminary, Resulted Staphylococcus Aureus 03/20/17 Anaerobic Culture - Preliminary, Resulted SERENITY GS (GRAM STAIN) Final 03/20/17-5984 GRAM STAIN RESULT NO POLYS SEEN MANY GRAM POS COCCI SERENITY CULT AEROBIC Preliminary 03/22/17-0751 Organism 1 STAPHYLOCOCCUS AUREUS COLONY COUNT/QUANTITY HEAVY GROWTH Oxacillin Susceptible Penicillin Resistant Staph spp. are Susceptible to Penicillin stable penicillins, Blactam/Blactamase inhibitor combinations, antistaphyloccal cephems, and carbapenems. 1. STAPHYLOCOCCUS AUREUS M.I.C Interp --------- ------ * CEFAZOLIN S * CLINDAMYCIN <=0.25 S * ERYTHROMYCIN >=8 R * LINEZOLID 2 S * MOXIFLOXACIN <=0.25 S * OXACILLIN SERENITY 0.5 S * RIFAMPIN <=0.5 S * TRIMETHOPRIM/SULFAMETHOXAZOLE <=10 S * VANCOMYCIN <=0.5 S X-Rays, CTs and MRIs 03/24/17 1226 MRI FOREFOOT RIGHT WITH AND WITHOUT CONTRAST 1. Prominent soft tissue ulcer along the dorsal lateral aspect of the forefoot extending to the underlying 5th metatarsal bone which demonstrates associated findings consistent with osteomyelitis as well as within the 5th proximal phalanx. 2. Abnormal edema and enhancement within the mid foot involving the middle and lateral cuneiforms, cuboid, and navicular also likely representing osteomyelitis. 3. Plantar soft tissue edema and enhancement within the mid foot associated with the adjacent bony changes most likely represent cellulitis and myositis. 4. Heterogeneous enhancing collection between the 4th and 5th metatarsals likely represents a phlegmon. 5. Peritendinitis along the distal extensor tendons without tenosynovial fluid. 03/20- Three-view right foot x-ray, nonweightbearing- No acute fracture. No osseous lesion. No evidence of soft tissue gas by plain film. If symptoms and/ or clinical suspicion for pathology Assessment & Plan 46-year-old woman with history of diabetes type I insulin using, hypertension, anxiety, presenting w/ non healing R foot wound admitted March 20 for treatment of right lateral foot abscess and cellulitis s/p bedside I&D 03/21-. 03/24- MRI Osteomyelitis- 5th metatarsal, 5th proximal phalanx, mid foot.Heterogeneous enhancing collection between the 4th and 5th metatarsals. s/ p 03/25- Partial amputations of the right fifth metatarsal and total amputation of the right fifth toe Sepsis due to Diabetic foot infection- w/ Acute right lateral foot abscess, cellulitis, and osteomyelitis, present on admission, active Temperature 37.8, 109, respirations 20, WBCs nearly 20, Source-Acute right lateral foot abscess and cellulitis. UCx- mixed UG Simona. Blood cultures- NGTD, Wound Cx- Positive for MSSA. -pt remained clinically stable with current tx -Lactic acid was normal. Elevated Procalcitonin- 0.2->0.18 -Vancomycin, Zosyn started initially on 03/20. Wound Cx- Positive for MSSA. This is consistent w/ prior admits. -IV Antibiotic, 03/23- Zosyn. ID Consult, Dr. Shelton consulted. Change Zosyn to cefazolin IV and oral Flagyl. -1.5 g of dalbavancin today, and repeat that dose in one week, on April 04, in the [facility], d/c home with clindamycin 300 mg p.o. q.i.d for total course which will take us through May 02. This will be five more weeks of oral clindamycin. FU with on 04/17, Osteomyelitis of R Foot- poa, active. s/p 03/25- Partial amputations of the right fifth metatarsal and total amputation of the right fifth toe - Pt has had multiple debridements bedside. -03/20- Right foot x-ray- No acute fracture. No osseous lesion. No evidence of soft tissue gas by plain film. - 03/24- MRI Osteomyelitis- 5th metatarsal, 5th proximal phalanx, mid foot.Heterogeneous enhancing collection between the 4th and 5th metatarsals likely represents a phlegmon. -Podiatry following, Dr Bond and Dr. Torres Chronic Type I diabetes, insulin using, present on admission, uncontrolled. Patient's glucose at time of ER visit was 118, Overnight BG >300 on admit, now 221. Hemoglobin A1c 9.1%. home insulin regimen- uses Humalog 10-30 units w/ meals and Levemir 50u bid. -glc in target 153 in fasting this AM - Substitute Levemir for Lantus. SSI Insulin. Modify mealtime when no longer NPO. -Diabetic diet. Transaminitis/ALP likely due to hepatic steatosis, present on admission, active. ALT and AST both elevated, review of history does not show previous elevations. ALP- 639 on admit, trending down, appears to be chronically elevated, usually less than 400. Acute hepatitis panel- negative. Pt does have hx of Hepatic Steatosis per [place] 2015. Possibly due to dehydration, shock liver unlikely given stable blood pressure. Avoid hepatic toxic medications at this time, such as acetaminophen. Chronic anxiety, present on admission, stable Continue home venlafaxine Dispo- appreciate Podiatry for timing of dispo. GI Prophylaxis: Not indicated VTE Prophylaxis: Sub-Q Heparin (Unfractionated) Resuscitation Status: DNR/DNI:Do Not Resuscitate/Intubate Time spent 35min Demetria Akins MD Mar 28, 2017 11:58
--- NOTE | 2017-03-28 14:58 | NUR ---
Social Work-continued d/c planning/ multidisciplinary rounds: Data:EMR reviewed. Pt is on day 8 of hospitalization for diabetic foot per H&P. Pt is not medically stable anticipate several more days. Pt followed by podiatry has placed wound vac on pt, Wound care also involved. ID saw pt today and pt currently on IV abx, anticipate IV vs PO at discharge. Pt is also no-weight bearing. SW to follow up with pt post MD order for services. SW will continue to follow. Assessment:pt who is independent at baseline. Plan:Pt to discharge home when medically stable via POV. SW to follow up with pt post MD order for services. SW will continue to follow. HAIDER Cedeno
--- NOTE | 2017-03-28 16:40 | PCM.PNPOD ---
Subjective Date of Service: Mar 28, 2017 Date of Service: Mar 28, 2017 Visit Information: Reason for Visit Diabetic Foot Infection,Sepsis Surgery/Surgery Date Post-Op Day # Date of Admission: Mar 20, 2017 at 21:45 Hospital Day # Subjective: 46-year-old female status post partial fifth ray resection with amputation of the right fifth toe. Patient is resting comfortably in bed and denies any new complaints today. Patient denies any pain associated with her right foot. Postop General: No Complaints Gastrointestinal: Good Appetite Pain Management: PO Objective Vital Sign - Last Date Time Temp Pulse Resp B/P Pulse Ox O2 Delivery O2 Flow Rate FiO2 03/28/17 08:46 36.4 84 18 108/69 96 Room Air 03/25/17 13:05 2 Intake and Output 03/27/17 03/27/17 03/28/17 Cumulative From/Thru 15:00 23:00 07:00 03/20/17 14:44 - 03/28/17 05:33 Intake Total 476 ml 837 ml 83950 ml Output Total 700 ml 2750 ml 85257 ml Balance -224 ml -1913 ml 6030 ml Intake Oral 476 ml 837 ml 30439 ml IV Total 6647 ml Output Urine Total 700 ml 2750 ml 60255 ml Estimated Blood Loss 40 ml # Voids 19 # Bowel Movements 0 2 Result Diagram: 03/28/17 0549 03/26/17 0600 Lab Test 03/20/17 16:35 03/20/17 22:14 03/21/17 05:40 03/22/17 07:25 Hemoglobin A1c 9.1% (4.8-5.6) Lactic Acid Level 1.8mmol/L (0.4-2.0) Urine Color Yellow (YELLOW) Urine Appearance Hazy (CLEAR,HAZY) Urine pH 5.5 (5.0-8.0) Urine Specific [place] 1.005 (1.003-1.035) Urine Protein Negativemg/dL (NEG,TRACE) Urine Glucose (UA) 250mg/dL (NEGATIVE) Urine Ketones Negativemg/dL (NEGATIVE) Urine Occult Blood Negative (NEGATIVE) Urine Nitrite Negative (NEGATIVE) Urine Bilirubin Negative (NEGATIVE) Urine Urobilinogen 2.0mg/dL (NORMAL) Urine Leukocyte Esterase Negative (NEGATIVE) Urine RBC 0-2/hpf (0-2) Urine WBC 0-5/hpf (0-5) Urine Epithelial Cells Many/hpf (NONE-MOD) Urine Crystals None seen (NONE SEEN) Urine Bacteria Moderate/hpf (NONE-FEW) Urine Hyaline Casts None/lpf (NONE) Urine Granular Casts None seen (NONE SEEN) Urine Waxy Casts None seen (NONE SEEN) Urine Red Blood Cell Casts None seen (NONE SEEN) Urine White Blood Cell Casts None seen (NONE SEEN) Urine Mucus None seen (None Seen) Urine Trichomonas None seen (NONE SEEN) Urine Yeast None (NONE SEEN) Urinalysis Comment None Urine Culture Reflexed Indicated Phosphorus Level 4.4mg/dL (2.5-4.9) Magnesium Level 2.4mg/dL (1.6-2.6) Hepatitis A IgM Antibody Negative (Negative) Hepatitis B Surface Antigen Negative (Negative) Hepatitis B Core IgM Antibody Negative (Negative) Hepatitis C Antibody 0.1s/co ratio (0.0-0.9) Hepatitis C Comment Comment (.) Vancomycin Level Trough 18.7mcg/mL Test 03/25/17 06:05 03/26/17 06:00 03/27/17 09:00 03/28/17 05:49 Erythrocyte Sedimentation Rate 62mm/hr (0-32) Procalcitonin 0.15ng/mL (0.00-0.08) Sodium Level 138mEq/L (134-144) Potassium Level 5.1mEq/L (3.5-5.2) Chloride Level 99mEq/L (97-108) Carbon Dioxide Level 24mmol/L (18-29) Blood Urea Nitrogen 25mg/dL (6-24) Creatinine 0.81mg/dL (0.57-1.00) Estimat Glomerular Filtration Rate 109mL/min (>59) Glucose Level 153mg/dL (60-99) Calcium Level 9.5mg/dL (8.5-10.1) Total Bilirubin 0.2mg/dL (0.0-1.2) Aspartate Amino Transf (AST/SGOT) 26U/L (0-50) Alanine Aminotransferase (ALT/SGPT) 31U/L (0-32) Alkaline Phosphatase 389U/L (25-150) Total Protein 6.9g/dL (6.4-8.4) Albumin 3.8g/dL (3.4-5.0) C-Reactive Protein 5.1mg/dL (0.0-0.5) White Blood Count 14.3th/mm3 (3.8-10.1) Red Blood Count 4.50mil/mm3 (3.90-5.20) Hemoglobin 12.4g/dL (12.0-15.6) Hematocrit 37.9% (35.0-46.0) Mean Corpuscular Volume 84.2fL (81-100) Mean Corpuscular Hemoglobin 27.6pg (27.0-35.0) Mean Corpuscular Hemoglobin Concent 32.7% (32.0-37.0) Red Cell Distribution Width 14.9% (12.3-15.4) Platelet Count 502bil/L (150-400) Neutrophils (%) (Auto) 65% (40-74) Lymphocytes (%) (Auto) 27% (14-46) Monocytes (%) (Auto) 3% (4-12) Eosinophils (%) (Auto) 1% (0-5) Basophils (%) (Auto) 1% (0-3) Band Neutrophils % 2% (1-5) Myelocytes % 1% (0-0) Exam General: Alert, Oriented X3, Cooperative, No Acute Distress, Mild Distress Lungs: Clear to Auscultation, Normal Air Movement Lower Extremities: Right: Edema localized (improving) Extremity warm (cellulitis improved) Lower Extremity Pulses: Palpable: Left Dorsalis Pedis Left Posterior Tibal Right Dorsalis Pedis Right Posterior Tibal Postop Sensory Motor: Distal Motor Intact, Motor 5/5, Decreased Sensation Podiatry WOUND : Wound Location/Description No erythema extending beyond the wound edge. The wound VAC dressing is clean and intact. 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 VAC change scheduled for tomorrow morning at that time and will be assessed and a determination will be made as to whether or not the patient is stable for discharge. There is still a slight elevation in the patient's white blood cell count however there is no clinical sign of continued infection involving the right foot. Previous MRI was read as possible osteomyelitis including multiple midfoot bones however there is no clinical evidence to support infection in this area so we will continue to monitor the right foot. This patient would benefit from discharge with the wound VAC and home nursing scheduled for wound VAC dressing changes twice weekly. This patient [facility] Saturday if discharged tomorrow afternoon. Please continue antibiotic therapy per Dr. Shelton recommendations. This patient is at this time cleared to begin partial weightbearing to her right heel with crutch assist for limited activity only such as toileting and transfers. Status: Acute ICD Code: E11.621 VTE Prophylaxis: Sub-Q Heparin (Unfractionated) Meng Torres DPM Mar 28, 2017 16:40
[2017-03-28 17:30] VITALS: BP 136/79; PULSE 99; RESP 18; O2SAT 93
[2017-03-28 21:40] VITALS: BP 130/71; PULSE 92; RESP 18; O2SAT 95
[2017-03-29] MEDS: CeFAZolin Inj 2,000 MG in Dextrose 5% 50 ML IV SCH (00:24)
[2017-03-29] MEDS: Sodium Chloride LOK Flush 10 mL Syringe IVFLUSH SCH ×2 (00:28→08:30)
[2017-03-29] MEDS: Heparin 5,000 Unit/mL Inj SUBQ SCH ×2 (00:28→08:07)
[2017-03-29] MEDS ORDERED: CLIN-78 PO (07:27)
[2017-03-29] MEDS ORDERED: CeFAZolin Inj 2 GM in Dextrose 5% 50 ML IV ONE (07:30)
[2017-03-29] MEDS: Fluticasone 0.05% 15 Spray/2 Gm 16 Gm Nasal Spray NOSTRIL SCH (08:04)
[2017-03-29] MEDS: Venlafaxine XR 75 mg ER24 Capsule PO SCH (08:05)
[2017-03-29] MEDS: Insulin GLARgine 100 Unit/mL Syringe SUBQ SCH (08:06)
[2017-03-29] MEDS: Insulin LISPRO 300 Unit/3 mL Inj SUBQ SCH ×2 (08:08→11:42)
[2017-03-29] MEDS ORDERED: CeFAZolin Inj 2 GM in IV Premix 1 EACH IV SCH (08:30)
[2017-03-29] MEDS ORDERED: OXYC-530 PO (10:10)
[2017-03-29] MEDS ORDERED: POLY17PO6 PO (10:10)
[2017-03-29 10:49] LABS: NEUTROPHILS % (AUTO) 74.4 % (40-74)
--- NOTE | 2017-03-29 10:54 | PCM.DIMED ---
Discharge Instructions Date of Service Mar 29, 2017 Dates of Hospitalization Mar 20, 2017 at 21:45 Discharge Diagnosis Discharge Diagnosis acute dx Sepsis due to Diabetic foot infection- w/ Acute right lateral foot abscess, cellulitis, and osteomyelitis, Osteomyelitis of R Foot s/p 03/25- Partial amputations of the right fifth metatarsal and total amputation of the right fifth toe chronic dx Chronic Type I diabetes, Transaminitis/ALP likely due to hepatic steatosis Chronic anxiety Diet Discharge Diet: Diabetic Activity Discharge Activity: No restrictions Call your provider Call your provider for: Fever or Chills Patient Instructions Patient Instructions You were hospitalized with diabetic food ulcer, abscess, bone infection. You underwent amputation, tolerated well. You were treated appropriately with antibiotics. Please follow instruction from : Continue Clindamycin 300 mg p.o. four times a day until 05/02, four more weeks. Please come to [facility] on 04/04 for one dose of antibiotics, Dalbavancin, Dr. Shelton will follow up on you. Please continue to work with nurse at home for Wound Vac management. Please follow up with your primary doctor in 1-2week You can take Oxycodone 1tab every 4-6hours if you are in severe pain, also can take tylenol for mild to moderate pain Please follow up with at Wound Care center on next Sunday 04/01 Follow-up Provider: Chiqui Dalal Follow-up with PCP in: 1 week Demetria Akins MD Mar 29, 2017 10:54
[2017-03-29 10:57] LABS: BASOPHILS % (AUTO) 0.6 % (0-3); EOSINOPHILS % (AUTO) 1.7 % (0-5); Mean Corpuscular Hemoglobin 27.3 pg (27.0-35.0); Platelet Count 552 bil/L (150-400)
[2017-03-29 11:38] VITALS: BP 120/77; PULSE 90; RESP 18; O2SAT 97
--- NOTE | 2017-03-29 12:04 | PROG NOTE ---
[address] [address] PROGRESS NOTE PATIENT: FILIBERTO ALBARRAN : 1970 MR#: [id number] ADMIT: 03/20/2017 JOB ID: [id number] DATE: 03/29/2017 REASON FOR FOLLOWUP: Severe diabetic foot infection with probable underlying osteomyelitis. INTERVAL HISTORY: The patient reports she is feeling reasonably well today. No fevers, no chills. No significant shortness of breath or GI symptoms. She has no real pain in her right foot. PHYSICAL EXAMINATION: Reveals an afebrile woman, in no acute distress. Temp 36.9, pulse 92, respiratory rate 18, blood pressure 130/71. She is saturating well on room air, and is in no acute distress, though she obviously appears chronically ill and much older than her stated age of 46. Mental status: Clear. Oral cavity unremarkable. Lungs: Reasonably clear. Abdomen: Soft and nontender. No new skin rash. I was able to evaluate the patient while both of the wound management specialists were in the room. We removed all the dressings and wound VAC from her right lateral foot. There is a long incision along the lateral foot at the site of the fifth toe amputation and the fifth ray amputation. In the middle of this sutured incision, there is about a 1.2 cm, 1 cm deep, undermined defect. At the bottom of this defect, there is good granulation tissue, and there is no purulence. Along the plantar aspect of this lateral foot ulcer or wound, there is a small amount of nonviable whitish tissue. Otherwise, the wound looks quite good. There is also some minimal cellulitis which extends up onto the dorsal foot immediately adjacent to the sutures. LABORATORIES: Include white count 15,000. Basically, her white count has not changed throughout this hospital stay. It has basically bounced around 15,000, and is settled at exactly 15,000 today. Only 74% segs. Platelet count 552,000. The myelocytes seen in previous counts are gone. Creatinine 0.81. Alk phos 389. Micro studies include the Staph aureus, which grew from the foot culture on the . Followup cultures, done in surgery on the , are negative at four days, and will likely remain that way. IMAGING DATA: No new imaging is available. IMPRESSION: This is an unfortunate young woman with diabetes and a severe right foot infection, which arose after she stepped on a lupe tack at her home. She lives alone in a rented single room in [place], and really has no family members or friends involved in her care. This would be a very difficult case to manage with home IV antibiotics, and I think this might be a reasonable situation to employ a combination of dalbavancin, as well as oral clindamycin. The recent article in [facility] suggested that glycopeptides and clindamycin may be synergistic in the therapy of staph, and I think that could be potentially beneficial in this case. RECOMMENDATIONS: 1. The patient already received 1.5 g of dalbavancin yesterday, and that should be repeated on April 04 in the [facility]. Such were orders have been written. 2. The patient can go home today on clindamycin 300 mg p.o. q.i.d., to go through May 02. 3. I would like to see the patient in my office, April 17. 4. This case was discussed with the Hospitalist, as well as the Wound Management team. We will sign off this case at this time as her discharge appears imminent.
--- NOTE | 2017-03-29 12:40 | NUR ---
Inpatient Wound Nurse Patient seen by BLANK RN for follow-up of R lateral foot. Patient denied pain, pleasant and cooperative. Scant red drainage noted in cannister. NPWT was removed and distal posterior area of wound noted white with maceration despite good seal and no leaks. Foot dorsum noted with some peeling as drape was removed. All sutures intact. Wound bed beefy red and granulating except for distal posterior edge. Edges well adhered except for distal posterior plane where it appears slightly flaky, peely, and mushy. Wound measured 2 cm L x 1.25 cm W x 0.6 cm D in center. A 1 cm pocket of undermining is noted at 8 c'clock. Wound was cleansed, periwound swabbed with povidone iodine and draped. One layer of black foam was placed onto wound bed, then a second layer of black foam applied over drape. Seal obtained quickly, 125 low continuous. Patient is expecting to discharge home with NPWT, then follow up with Dr. Crystal or Dr. Torres. Wound Center arranging insurance authorization, BLANK will udpate chart with SANDY mccarthy mariel.
--- NOTE | 2017-03-29 15:14 | NUR ---
Inpatient Wound Nurse BLANK switched patient's hospital NPWT unit to home NPWT unit without complication. All steps of care of home unit were reviewed. Patient understands that she will take with her to appoint on Saturday with Dr. Torres a complete Wound Vac packing change and canister. Dr. Torres will change NPWT dressing on Saturday and then patient will be seen at Wound Center on Saturday with Dr. Crystal. She understands that she will take all NPWT pieces with her to Wound Center and return unused portions plus unit if NPWT is discontinued by Dr. Crystal.
--- NOTE | 2017-03-29 16:34 | PCM.DC.MED ---
Discharge Summary Date of Service Mar 29, 2017 Dates of Hospitalization Date of Hospital Admission Mar 20, 2017 at 21:45 Date of Discharge: Mar 29, 2017 Providers: Admitting Physician: Jeaneth Fulton MD Primary Care Physician: Chiqui Dalal Attending Physician: Demetria Goncalves MD Diagnosis at Time of Discharge Diagnosis at Time of Discharge acute dx Sepsis due to Diabetic foot infection- w/ Acute right lateral foot abscess, cellulitis, and osteomyelitis, Osteomyelitis of R Foot s/p 03/25- Partial amputations of the right fifth metatarsal and total amputation of the right fifth toe chronic dx Chronic Type I diabetes, Transaminitis/ALP likely due to hepatic steatosis Chronic anxiety Consultations ID, Podiatry Procedures XRay, CTs & MRIs 03/24/17 1226 MRI FOREFOOT RIGHT WITH AND WITHOUT CONTRAST 1. Prominent soft tissue ulcer along the dorsal lateral aspect of the forefoot extending to the underlying 5th metatarsal bone which demonstrates associated findings consistent with osteomyelitis as well as within the 5th proximal phalanx. 2. Abnormal edema and enhancement within the mid foot involving the middle and lateral cuneiforms, cuboid, and navicular also likely representing osteomyelitis. 3. Plantar soft tissue edema and enhancement within the mid foot associated with the adjacent bony changes most likely represent cellulitis and myositis. 4. Heterogeneous enhancing collection between the 4th and 5th metatarsals likely represents a phlegmon. 5. Peritendinitis along the distal extensor tendons without tenosynovial fluid. 03/20- Three-view right foot x-ray, nonweightbearing- No acute fracture. No osseous lesion. No evidence of soft tissue gas by plain film. If symptoms and/ or clinical suspicion for pathology Brief History HPI obtained by Dr. Fulton on 03/20 Alondra Hamm is a 46-year-old woman with history diabetes type I, insulin using , who presents after 1 day of worsening right foot pain. She describes it as an abrupt pain in her right foot last night I that continued to get worse, without resolve today. "I cried through the night because of the pain" today she noticed that the lateral portion of her right foot had become opened and was draining red fluid. She reports having a similar injury to her left foot in the past that required surgical debridement. She recently had an x-ray performed, 6 days ago, which showed possible developing Charcot joint. She denies any fevers, chills, or dizziness. She endorses some lightheadedness occasionally. No chest pain, shortness of breath, rashes elsewhere on her body , no nausea vomiting or diarrhea no constipation, no headaches or changes in vision. She has been able to eat and void appropriately, no dysuria or change in frequency. Presentation: 37.6 Celsius, 109, 20, 125/78, 97% on room air White count 19.9, hemoglobin 12.5, platelets 459, neutrophils 77.5% Sodium 133, chloride 92, glucose 118, lactic acid 1.8, AST/ALT 61/75 respectively, alkaline phosphatase 639 New x-ray pending Patient was given fluids, started on antibiotics, case discussed with podiatry environmental science program director, Dr. Kadeem Bodn, agreed to see patient in the morning. Hospital Course Brief hospital course. pt was presented with non healing R foot wound admitted March 20 for treatment of right lateral foot abscess and cellulitis s/p bedside I&D 03/21-. 03/24- MRI Osteomyelitis- 5th metatarsal, 5th proximal phalanx, mid foot.Heterogeneous enhancing collection between the 4th and 5th metatarsals. s/ p 03/25- Partial amputations of the right fifth metatarsal and total amputation of the right fifth toe. pt was closely followed by ID. initially on zosyn to cefzolin and oral flagyl, eventually received one dose of dalbavancin and clindamycin. Plan is to repeat one dose on 04/04 in [facility] and continue clindamycin 300mg qid for four more weeks per ID. Patient will be set up for home wound nurse with Wound Vac, follow up in Wound care Center on next Saturday with . Sepsis due to Diabetic foot infection- w/ Acute right lateral foot abscess, cellulitis, and osteomyelitis, present on admission, active Temperature 37.8, 109, respirations 20, WBCs nearly 20, Source-Acute right lateral foot abscess and cellulitis. UCx- mixed UG Simona. Blood cultures- NGTD, Wound Cx- Positive for MSSA. -pt remained clinically stable with current tx -Lactic acid was normal. Elevated Procalcitonin- 0.2->0.18 -Vancomycin, Zosyn started initially on 03/20. Wound Cx- Positive for MSSA. This is consistent w/ prior admits. -IV Antibiotic, 03/23- Zosyn. ID Consult, Dr. Shelton consulted. Change Zosyn to cefazolin IV and oral Flagyl. -1.5 g of dalbavancin today, and repeat that dose in one week, on April 04, in the [facility], d/c home with clindamycin 300 mg p.o. q.i.d for total course which will take us through May 02. This will be five more weeks of oral clindamycin. FU with on 04/17, Osteomyelitis of R Foot- poa, active. s/p 03/25- Partial amputations of the right fifth metatarsal and total amputation of the right fifth toe - Pt has had multiple debridements bedside. -03/20- Right foot x-ray- No acute fracture. No osseous lesion. No evidence of soft tissue gas by plain film. - 03/24- MRI Osteomyelitis- 5th metatarsal, 5th proximal phalanx, mid foot.Heterogeneous enhancing collection between the 4th and 5th metatarsals likely represents a phlegmon. -Podiatry following, Dr Bond and Dr. Torres Chronic Type I diabetes, insulin using, present on admission, uncontrolled. Patient's glucose at time of ER visit was 118, Overnight BG >300 on admit, now 221. Hemoglobin A1c 9.1%. home insulin regimen- uses Humalog 10-30 units w/ meals and Levemir 50u bid. -glc in target 153 in fasting this AM - Substitute Levemir for Lantus. SSI Insulin. Modify mealtime when no longer NPO. -Diabetic diet. Transaminitis/ALP likely due to hepatic steatosis, present on admission, active. ALT and AST both elevated, review of history does not show previous elevations. ALP- 639 on admit, trending down, appears to be chronically elevated, usually less than 400. Acute hepatitis panel- negative. Pt does have hx of Hepatic Steatosis per [place] 2014. Possibly due to dehydration, shock liver unlikely given stable blood pressure. Avoid hepatic toxic medications at this time, such as acetaminophen. Chronic anxiety, present on admission, stable Continue home venlafaxine Dispo- appreciate Podiatry for timing of dispo. Exam Vital Signs (Last) Date Time Temp Pulse Resp B/P Pulse Ox O2 Delivery O2 Flow Rate FiO2 03/29/17 11:38 36.6 90 18 120/77 97 Room Air 03/25/17 13:05 2 Exam pt was examined on the day of d/c Test 03/20/17 16:35 03/20/17 22:14 03/21/17 05:40 03/22/17 07:25 Hemoglobin A1c 9.1% (4.8-5.6) Lactic Acid Level 1.8mmol/L (0.4-2.0) Urine Color Yellow (YELLOW) Urine Appearance Hazy (CLEAR,HAZY) Urine pH 5.5 (5.0-8.0) Urine Specific [place] 1.005 (1.003-1.035) Urine Protein Negativemg/dL (NEG,TRACE) Urine Glucose (UA) 250mg/dL (NEGATIVE) Urine Ketones Negativemg/dL (NEGATIVE) Urine Occult Blood Negative (NEGATIVE) Urine Nitrite Negative (NEGATIVE) Urine Bilirubin Negative (NEGATIVE) Urine Urobilinogen 2.0mg/dL (NORMAL) Urine Leukocyte Esterase Negative (NEGATIVE) Urine RBC 0-2/hpf (0-2) Urine WBC 0-5/hpf (0-5) Urine Epithelial Cells Many/hpf (NONE-MOD) Urine Crystals None seen (NONE SEEN) Urine Bacteria Moderate/hpf (NONE-FEW) Urine Hyaline Casts None/lpf (NONE) Urine Granular Casts None seen (NONE SEEN) Urine Waxy Casts None seen (NONE SEEN) Urine Red Blood Cell Casts None seen (NONE SEEN) Urine White Blood Cell Casts None seen (NONE SEEN) Urine Mucus None seen (None Seen) Urine Trichomonas None seen (NONE SEEN) Urine Yeast None (NONE SEEN) Urinalysis Comment None Urine Culture Reflexed Indicated Phosphorus Level 4.4mg/dL (2.5-4.9) Magnesium Level 2.4mg/dL (1.6-2.6) Hepatitis A IgM Antibody Negative (Negative) Hepatitis B Surface Antigen Negative (Negative) Hepatitis B Core IgM Antibody Negative (Negative) Hepatitis C Antibody 0.1s/co ratio (0.0-0.9) Hepatitis C Comment Comment (.) Vancomycin Level Trough 18.7mcg/mL Test 03/25/17 06:05 03/26/17 06:00 03/27/17 09:00 03/28/17 05:49 Erythrocyte Sedimentation Rate 62mm/hr (0-32) Procalcitonin 0.15ng/mL (0.00-0.08) Sodium Level 138mEq/L (134-144) Potassium Level 5.1mEq/L (3.5-5.2) Chloride Level 99mEq/L (97-108) Carbon Dioxide Level 24mmol/L (18-29) Blood Urea Nitrogen 25mg/dL (6-24) Creatinine 0.81mg/dL (0.57-1.00) Estimat Glomerular Filtration Rate 109mL/min (>59) Glucose Level 153mg/dL (60-99) Calcium Level 9.5mg/dL (8.5-10.1) Total Bilirubin 0.2mg/dL (0.0-1.2) Aspartate Amino Transf (AST/SGOT) 26U/L (0-50) Alanine Aminotransferase (ALT/SGPT) 31U/L (0-32) Alkaline Phosphatase 389U/L (25-150) Total Protein 6.9g/dL (6.4-8.4) Albumin 3.8g/dL (3.4-5.0) C-Reactive Protein 5.1mg/dL (0.0-0.5) Band Neutrophils % 2% (1-5) Myelocytes % 1% (0-0) Test 03/29/17 09:28 White Blood Count 15.1th/mm3 (3.8-10.1) Red Blood Count 4.95mil/mm3 (3.90-5.20) Hemoglobin 13.5g/dL (12.0-15.6) Hematocrit 41.1% (35.0-46.0) Mean Corpuscular Volume 83.0fL (81-100) Mean Corpuscular Hemoglobin 27.3pg (27.0-35.0) Mean Corpuscular Hemoglobin Concent 32.8% (32.0-37.0) Red Cell Distribution Width 15.0% (12.3-15.4) Platelet Count 552bil/L (150-400) Neutrophils (%) (Auto) 74.4% (40-74) Lymphocytes (%) (Auto) 14.7% (14-46) Monocytes (%) (Auto) 6.0% (4-12) Eosinophils (%) (Auto) 1.7% (0-5) Basophils (%) (Auto) 0.6% (0-3) Microbiology Results Laboratory Tests Test 03/24/17 06:57 White Blood Count 13.2th/mm3 (3.8-10.1) Red Blood Count 4.16mil/mm3 (3.90-5.20) Hemoglobin 11.3g/dL (12.0-15.6) Hematocrit 36.1% (35.0-46.0) Mean Corpuscular Volume 86.8fL (81-100) Mean Corpuscular Hemoglobin 27.2pg (27.0-35.0) Mean Corpuscular Hemoglobin Concent 31.3% (32.0-37.0) Red Cell Distribution Width 15.0% (12.3-15.4) Platelet Count 492bil/L (150-400) Neutrophils (%) (Auto) 69% (40-74) Lymphocytes (%) (Auto) 17% (14-46) Monocytes (%) (Auto) 7% (4-12) Eosinophils (%) (Auto) 3% (0-5) Basophils (%) (Auto) 0% (0-3) Band Neutrophils % 4% (1-5) Sodium Level 134mEq/L (134-144) Potassium Level 5.6mEq/L (3.5-5.2) Chloride Level 96mEq/L (97-108) Carbon Dioxide Level 25mmol/L (18-29) Blood Urea Nitrogen 19mg/dL (6-24) Creatinine 0.69mg/dL (0.57-1.00) Estimat Glomerular Filtration Rate 131mL/min (>59) Glucose Level 221mg/dL (60-99) Calcium Level 8.9mg/dL (8.5-10.1) Total Bilirubin 0.2mg/dL (0.0-1.2) Aspartate Amino Transf (AST/SGOT) 27U/L (0-50) Alanine Aminotransferase (ALT/SGPT) 29U/L (0-32) Alkaline Phosphatase 426U/L (25-150) Total Protein 6.5g/dL (6.4-8.4) Albumin 3.3g/dL (3.4-5.0) Microbiology 03/20/17 Blood Culture - Preliminary, Resulted No growth at 2 days; culture examined... 03/22/17 MRSA (PCR) - Final, Complete 03/20/17 Urine Culture - Final, Complete Mixed Urogenital Simona 03/20/17 Gram Stain - Final, Resulted 03/20/17 Culture & Sensitivity - Preliminary, Resulted Staphylococcus Aureus 03/20/17 Anaerobic Culture - Preliminary, Resulted SERENITY GS (GRAM STAIN) Final 03/20/17-2217 GRAM STAIN RESULT NO POLYS SEEN MANY GRAM POS COCCI SERENITY CULT AEROBIC Preliminary 03/22/17-0751 Organism 1 STAPHYLOCOCCUS AUREUS COLONY COUNT/QUANTITY HEAVY GROWTH Oxacillin Susceptible Penicillin Resistant Staph spp. are Susceptible to Penicillin stable penicillins, Blactam/Blactamase inhibitor combinations, antistaphyloccal cephems, and carbapenems. 1. STAPHYLOCOCCUS AUREUS M.I.C Interp --------- ------ * CEFAZOLIN S * CLINDAMYCIN <=0.25 S * ERYTHROMYCIN >=8 R * LINEZOLID 2 S * MOXIFLOXACIN <=0.25 S * OXACILLIN SERENITY 0.5 S * RIFAMPIN <=0.5 S * TRIMETHOPRIM/SULFAMETHOXAZOLE <=10 S * VANCOMYCIN <=0.5 S Discharge Medications Discharge Medications Aspirin (Aspirin) 81 Mg Tablet 81 MG PO DAILY (Reported) Clindamycin (Clindamycin) 300 Mg Capsule 300 MG PO QID Prescribed by: DEMETRIA GONCALVES MD Fluticasone Propionate (Fluticasone Propionate Nasal) 16 Gm [place].susp 2 SPRAY NS DAILY (Reported) Gabapentin (Gabapentin) 600 Mg Tablet 1,200 MG PO TID (Reported) Hydrochlorothiazide (Hydrochlorothiazide) 25 Mg Tablet 25 MG PO DAILY (Reported ) Insulin Detemir (Levemir U100 Insulin Vial) 100 Unit/1 Ml Vial 50 UNITS SUBQ BID (Reported) Insulin Human Lispro (HumaLOG U100 Insulin Vial) 100 Unit/Ml Unit 10-30 UNITS SUBQ TIDWM (Reported) Levothyroxine (Levothyroxine) 125 Mcg Tablet 125 MCG PO DAILY (Reported) Polyethylene Glycol 3350 (Miralax) 17 Gm Powd.pack 17 GM PO DAILY Prescribed by: DEMETRIA GONCALVES MD Venlafaxine ER (Venlafaxine ER) 150 Mg Tab.er.24 150 MG PO DAILY (Reported) Venlafaxine ER (Venlafaxine ER) 75 Mg Cap.er.24h 75 MG PO DAILY (Reported) take together with 150mg tab As needed Albuterol HFA (Proair HFA) 8.5 Gm Hfa.aer.ad 2 PUFFS INHALATION Q4H PRN PRN PRN (Reported) Alprazolam (Alprazolam) 0.25 Mg Tablet 0.25 MG PO DAILY PRN PRN For Anxiety ( Reported) oxyCODONE (oxyCODONE) 5 Mg Tablet 5 MG PO Q4H PRN PRN For Moderate Pain Prescribed by: DEMETRIA GONCALVES MD Followup Plan Discharge Diet: Diabetic Discharge Activity: No restrictions Patient Instructions You were hospitalized with diabetic food ulcer, abscess, bone infection. You underwent amputation, tolerated well. You were treated appropriately with antibiotics. Please follow instruction from : Continue Clindamycin 300 mg p.o. four times a day until 05/02, four more weeks. Please come to [facility] on 04/04 for one dose of antibiotics, Dalbavancin, Dr. Shelton will follow up on you. Please continue to work with nurse at home for Wound Vac management. Please follow up with your primary doctor in 1-2week You can take Oxycodone 1tab every 4-6hours if you are in severe pain, also can take tylenol for mild to moderate pain Please follow up with at Wound Care center on next Sunday 04/01 Follow-up Provider: Chiqui Dalal Follow-up with PCP in: 1 week Demetria Goncalves MD Mar 29, 2017 16:34
--- NOTE | 2017-03-29 16:47 | NUR ---
DISCHARGE Pt dc'd home at 1630, off unit in w/c accompanied by REWORKER and pt's mother. Vital signs stable, A&O, denies any pain and no apparent distress. IV dc'd intact, all belongings returned. Wound vac functioning intact as well. All instructions for diet, activity, medications, prescriptions and follow up reviewed with pt who reports understanding. All follow up nathen'ts with wound care, podiatry, ID reviewed with pt as well.
--- NOTE | 2017-03-29 17:32 | NUR ---
Social Work: Discharge Note Data: EMR reviewed. Patient is on day 9 of hospitalization for diabetic foot infection & sepsis per H&P. Patient was discussed in morning rounds. Patient has been deemed medically stable for discharge per MD. has ordered home health PT for patient. GUSTAVO met with patient and family to discuss home health choice. GUSTAVO role explained. GUSTAVO provided patient with home health choice list. Patient has selected [facility]. GUSTAVO paged MD requesting F2F form be completed. GUSTAVO contacted Tejinder from [facility] and provided brief overview of patient. GUSTAVO has provided access to [facility]. Transportation will be provided by family member. Patient has no additional needs at this time. Assessment: Patient will discharge home with [facility] for PT. Plan: Patient will discharge home today. GUSTAVO is awaiting F2F form to be completed by . has been notified by GUSTAVO that F2F is needed. Transportation will be provided by family. Patient has no additional needs at this time. HAIDER Garibay
--- NOTE | 2017-04-02 09:27 | PATH ---
SURGICAL PATHOLOGY Attending Physician:Meng Torres, CASE STATUS: Signed Out PATIENT NAME: FILIBERTO ALBARRAN PID: [id number] : 1970 DATE COLLECTED:03/25/2017 00:00 SPECIMEN: Extremity Amputation, Non-Traumatic CLINICAL HISTORY: DIABETIC FOOT INFECTION 1) RIGHT 5TH METATARSAL AND TOE FINAL DIAGNOSIS: Right Fifth Metatarsal and Toe, Amputation: - Skin and soft tissue resection margins are viable with no evidence of neutrophilic inflammation. - Bone resection margin is viable with reactive changes and no evidence of neutrophilic inflammation. - Overlying soft tissue with focal area of necrosis and neutrophilic inflammation. ICD10: M86.17 GROSS DESCRIPTION: The specimen is received in formalin, labeled with the patient's name, sublabeled as right 5th metatarsal & toe, and consists of a resected metatarsal and toe (6.8 cm AP, 2.3 cm SI, 1.5 cm ML). The toenail is present. The skin is mar-white smooth shiny and unremarkable. No nodules, masses or lesions are identified. The bone is hard and cannot be sliced with a scalpel. The bone cut surface is mar and unremarkable. Ink code: black- superior, bone resection margin; orange-inferior. Section code: (A) skin and soft tissue resection margins, enface; (B) bone resection margin, enface; (C) toe, skin and soft tissue, longitudinally sectioned, eligibility services representative; (D) bone, serially sectioned, eligibility services representative. Note: The bone sections have been decalcified. 03/27/17 ICD-9 CODES: CPT CODES: 1: 40666, 19176 Electronically Signed Out Sachin Tran MD [facility] [address], [place] [address] Technical component performed at [facility], [address] [place] [address] Ave[address], [place], [address]
== END 2017-03-29 16:28 | disposition home health service (06) | DRG 854 ==
LOC: SED 14:19 → MPC 21:45
PROVIDERS: ADMIT Specialist; ATTEND Specialist
PROC: 0J9Q0ZX Drainage of Right Foot Subcutaneous Tissue and Fascia, Open Approach, Diagnostic (ICD-10-PCS; 2017-03-22)
PROC: 0LBV0ZZ Excision of Right Foot Tendon, Open Approach (ICD-10-PCS; 2017-03-23)
PROC: 0JDQ0ZZ Extraction of Right Foot Subcutaneous Tissue and Fascia, Open Approach (ICD-10-PCS; 2017-03-24)
PROC: 0Y6M0ZF Detachment at Right Foot, Partial 5th Ray, Open Approach (ICD-10-PCS; principal; 2017-03-25 11:30)
DX: A41.9 Sepsis, unspecified organism (principal); L03.115 Cellulitis of right lower limb; E87.1 Hypo-osmolality and hyponatremia; M86.8X7 Other osteomyelitis, ankle and foot; Z68.41 Body mass index [BMI] 40.0-44.9, adult; E10.65 Type 1 diabetes mellitus with hyperglycemia; E86.0 Dehydration; E10.621 Type 1 diabetes mellitus with foot ulcer; E03.9 Hypothyroidism, unspecified; F41.9 Anxiety disorder, unspecified; Z66 Do not resuscitate; K76.0 Fatty (change of) liver, not elsewhere classified; E66.01 Morbid (severe) obesity due to excess calories; E10.42 Type 1 diabetes mellitus with diabetic polyneuropathy; E10.69 Type 1 diabetes mellitus with other specified complication; L97.514 Non-pressure chronic ulcer of other part of right foot with necrosis of bone

== ENCOUNTER → 2017-04-04 | Day surgery (SDC) | payer MEDICARE, MEDICAID ==
[~2017-04-04] VITALS: Ht 160 cm; Wt 108.0 kg
[~2017-04-04] MED LIST changes: -AMOX-366 PO; -ATOR40TA69 PO; -BENZ100C8 PO; +CLIN-78 PO; +Dalbavancin Inj 1,500 MG in Dextrose 5% 500 ML IV ONE; -HYDR-4003 PO; -LEVO112T4 PO; +LEVO125T6 PO; -LISI10TA PO; +OXYC5TAB72 PO; +POLY17PO6 PO
[2017-04-04 14:37] VITALS: BP 121/57; PULSE 94; RESP 16; O2SAT 96
[2017-04-04 14:38] LABS: BASOPHILS % (AUTO) 0.9 % (0-3); EOSINOPHILS % (AUTO) 1.5 % (0-5); MONOCYTES % (AUTO) 7.7 % (4-12); Mean Corpuscular Hemoglobin 27.4 pg (27.0-35.0); Mean Corpuscular Volume 85.2 fL (81-100); NEUTROPHILS % (AUTO) 71.2 % (40-74); Platelet Count 435 bil/L (150-400)
--- NOTE | 2017-04-04 16:52 | NUR ---
[place] Patient arrived to unit independently. IVT initiated IV. Tolerated infusion without adverse reaction. No further infusion scheduled. Labs drawn. Left unit in stable condition.
== END | disposition home or self-care (01) ==
LOC: MOCO 14:23
PROVIDERS: ATTEND Internal Medicine Infectious Disease
DX: A41.9 Sepsis, unspecified organism (principal)
CPT/HCPCS: 36415; 80053; 85025; 86140; 96365; J0875; J7060

== ENCOUNTER 2017-04-28 13:41 | Emergency (ER) | payer MEDICARE, MEDICAID ==
[~2017-04-28] VITALS: Ht 160 cm; Wt 111.4 kg
[~2017-04-28 13:41] MED LIST changes: -Dalbavancin Inj 1,500 MG in Dextrose 5% 500 ML IV ONE; -OXYC5TAB72 PO; -POLY17PO6 PO
[2017-04-28 14:01] VITALS: BP 135/72; PULSE 92; RESP 18; O2SAT 99
--- NOTE | 2017-04-28 14:43 | ED.REPORT ---
HPI-General Illness Date of Service Apr 28, 2017 ED Provider: Santana Echavarria MD The pt is a 47 y/o female with a hx of HTN, Type I IDDM, and hypothyroidism who presents to the ED via EMS complaining of loss of consciousness, onset in the morning today. She associates her sx with low blood sugar. She denies lightheadedness, dizziness, chest pain, palpitations, headache, and blurry vision prior to fainting. She also reports waking up with swollen and tender right ankle. Nursing Notes Stated Complaint: ANKLE PAIN Chief Complaint: Extremity Trauma Nursing Notes Reviewed: Yes Allergies: Coded Allergies: No Known Allergies (Verified Allergy, Unknown, 04/04/17) Scheduled Aspirin (Aspirin) 81 Mg Tablet 81 MG PO DAILY Clindamycin (Clindamycin) 300 Mg Capsule 300 MG PO QID Fluticasone Propionate (Fluticasone Propionate Nasal) 16 Gm [place].susp 2 SPRAY NS DAILY Gabapentin (Gabapentin) 600 Mg Tablet 1,200 MG PO TID Hydrochlorothiazide (Hydrochlorothiazide) 25 Mg Tablet 25 MG PO DAILY Insulin Detemir (Levemir U100 Insulin Vial) 100 Unit/1 Ml Vial 50 UNITS SUBQ BID Insulin Human Lispro (HumaLOG U100 Insulin Vial) 100 Unit/Ml Unit 10-30 UNITS SUBQ TIDWM Levothyroxine (Levothyroxine) 125 Mcg Tablet 125 MCG PO DAILY Venlafaxine ER (Venlafaxine ER) 150 Mg Tab.er.24 150 MG PO DAILY Venlafaxine ER (Venlafaxine ER) 75 Mg Cap.er.24h 75 MG PO DAILY take together with 150mg tab Scheduled PRN Albuterol HFA (Proair HFA) 8.5 Gm Hfa.aer.ad 2 PUFFS INHALATION Q4H PRN PRN PRN Alprazolam (Alprazolam) 0.25 Mg Tablet 0.25 MG PO DAILY PRN PRN For Anxiety Hydrocodone-Acetaminophen 5-325 mg (Hydrocodone-Acetaminophen 5-325 mg) 1 Each Tablet 1 TABLET PO Q4H PRN PRN For Pain General Time Seen by MD: 15:02 Chief Complaint Multip medical complaints Hx Obtained From: Patient Arrived By: Ambulance Sudden in Onset?: Yes Onset Occurred: 1 - 4 hours ago Symptom Duration: Since onset Location: : Ankle right Quality: Painful Radiation: : Does not radiate Severity: Current: Severe Severity: Maximum: Severe Recent Healthcare: Recent doctor visit Past Medical History Past Medical History Notes: Frequent ED visits for uncontrolled blood sugar, both hypoglycemia and hyperglycemia, and diabetic ulcers. Past Medical History diabetic ulcers diabetic neuropathy hidradenitis hypothyroidism depression anxiety dyslipidemia Reports: Diabetes mellitus, Hypertension Reports: Obesity Past Surgical History Surgery in June 2015 for infected diabetic ulcer Smoking History Unknown if Ever Smoker Social History Drug Use: Denies drug use Other Social History: Good social support, Local resident Ambulatory Status Independent Review of Systems Full Review of Systems Cardiovascular: Denies: Chest pain, Palpitations Musculoskeletal: Reports: Joint pain (right ankle), Joint swelling (right ankle ) Neurologic: Reports: Change LOC, Denies: Dizziness, Headache, Lightheaded, Vision change Complete sys rev & neg: except as marked. Physical Exam Vital Signs Vital Signs Date Time Temp Pulse Resp B/P Pulse Ox O2 Delivery O2 Flow Rate FiO2 04/28/17 18:51 97 22 138/82 100 Room Air 04/28/17 14:01 36.4 92 18 135/72 99 Room Air Initial VS: Reviewed Head / Eyes: Atraumatic, Normocephalic, PERRL Neck: Supple, Non-tender, Full range of motion Respiratory: Breath sounds normal, Clear to auscultation, No respiratory distress Cardiovascular: Regular rate & rhythm, Heart sounds normal, Intact distal pulses Abdomen / GI: Soft, Non-tender, No guarding, No rebound, No distention Extremities: Vascular intact, Neuro intact, No swelling, No tenderness Skin: Warm, Dry, No cyanosis General/Constitutional: Awake, Alert, No acute distress, Well appearing, Cooperative Lower Extremity / Pelvis / MS: Atraumatic, Full range of motion, No swelling, Non-tender, No deformity, Neurologic intact, Vascular intact Ankle / Foot: Atraumatic, No erythema, Neurologic intact, Vascular intact Right Foot: Positive: Swelling present... (Mild), Tenderness present... ( Moderate) Woundvac in place on the right foot. Interpretation & Diagnostics X-Ray Interpretation Xray Interpretation: IMPRESSION: Bimalleolar fracture with suspicion of posterior malleolar fracture as above. Dictated by: Arabella Moore M.D. on 04/28/2017 at 15:32 Approved by: Arabella Moore M.D. on 04/28/2017 at 15:34 X-Ray Ordered: Ankle right Interpretation / Wet Read by: Interpret - Radiologist Procedures Proced Mod Sedation/Analgesia Time: 17:43 Procedure Performed by: ED physician Sedation Time: 31 - 45 min (32) Consent / Setup: Informed consent provided, Time-out performed, Hand hygiene observed, Stand sterile technique, Position supine, Head of bed at 30-60 deg Indication: Fracture reduction, Ankle reduction Preparation: media monitor applied, Pulse oximeter applied, Constant attendance, IV access established, Eval last meal time, Supplemental oxygen, Procedure explained, Suction available, End tidal CO2 mon applied VS Prior to Procedure: All vital signs normal Mallampati: Class & Anatomy: 3 hard pal/base uvula Airway Exam: Normal facial anatomy, Normal neck anatomy, Normal anatomy CVS/Resp Exam: Normal breath sounds, Normal heart sounds Neuro Exam: Alert, No acute distress, Responsive Sedation: Sedation: Propofol (80) Response During Procedure: Handled secretions adeq, Maintained airway well, Oxygenation stable, Sedation appropriate, Vital signs stable Complications During/After: None Reversal: None required Mental Status After Procedure: Alert, Oriented X3, Response to verbal stim, Response to painful stim, Normal per age, At patient's baseline Post-Procedure: Alert prior to discharge, Ambulatory with assist, Pt rtn pre- proc baseline, Vital signs normal Attestation: I performed procedure Reduction Dislocated Ankle Time: 17:47 Procedure Performed by: ED physician Consent / Setup: Consent from patient, Time-out performed, Oxygen administered Which Ankle and Technique: Right ankle, Foot dorsiflexed Post-Procedure / Complications: Reduced per examination, Procedure successful, X-ray disloc reduced, Posterior splint applied, Condition improved, Tolerated procedure well Splint Application - Fx Mgt Time: 17:49 Procedure Performed by: ED physician Precise Anatomic Location: Right ankle Type of Immobilization: Ortho-glass Definitive Fracture Care: Pain control, Splint Post-Procedure / Complications: Cap refill normal, Post splint vascular nl, Post splint neuro nl, Condition improved, Tolerated procedure well, Patient stable Splint Post-Application Eval Extremity Condition: Cap refill < 2 sec, Distal sensation intact, Distal motor Intact, No compartment syndrome Re-Eval/Medical Decision Med Decision/Clinical Course 47-year-old female with fall onto right ankle. She reports a syncopal event but refuses any workup for this. She does have a right ankle trimalleolar fracture. Neurovascularly intact. Reviewed with orthopedics recommends splint placement follow-up Ortho as outpatient. Reduced this under conscious sedation and placed in a splint for follow-up with orthopedics this week. She is neurovascularly intact post-splint placement. Discharged with crutches. Return precautions given. Time of Eval: 15:04 Re-Evaluation/Progress Note: Discussed the plan to defer labs and do an X-ray only. The pt understands and agrees with the plan. All questions answered. Time of Eval: 15:37 Re-Evaluation/Progress Note: Discussed imaging and the plan to consult ortho. The pt understands and agrees with the plan. All questions answered. Time of Eval: 15:57 Re-Evaluation/Progress Note: Disucssed Dr. Watt's recommendation. The pt would like the ankle reduced post conscious sedation. Time of Eval: 17:50 Re-Evaluation/Progress Note: Rechecked pt. Discussed lab results, imaging results, diagnosis and plan to discharge. Pt understands and agrees with the plan. F/U instruction and RTER warning given. All questions addressed. Consultation : Referral / Consult Name: Maurizio Watt DO Consulted With: Orthopedic Call Returned at: 15:38 Gate Supervisor: Agrees with eval, Agrees with plan Note: Does not think the fracture needs to be reduced necessarily but can be done if requested by the pt. Recommends dischargeing the pt with a splint and instruction to follow up with orthopedist. Counseled Regarding: Diagnosis, Need for follow-up, When/why to return to ED Discharge & Departure Primary Impression: Closed right ankle fracture Encounter type: initial encounter Qualified Code: S82.891A - Other fracture of right lower leg, initial encounter for closed fracture Disposition: Home Discharge Condition All VS Reviewed: Yes Condition: Stable Patient Instructions: Ankle Fracture (ED), Splint Care (ED) Additional Instructions: Thank you for entrusting us with your care today. Your X-ray shows a right ankle fracture. It was reduced today. Use crutches as able or use the wheelchair (prescription provided). You can buy it at "[facility]" in [facility]. Take ibuprofen for pain. Take [place] as prescribed. Do not drive or drink alcohol while on this medication as it is sedating. Follow up with Dr. Watt, orthopedist, tomorrow for further evaluation. Return to the emergency department in case of worsening pain, tingling sensation , numbness or weakness in the right leg or any other new or concerning symptoms. Referrals: Chiqui Dalal (PCP) Maurizio Watt Attestation Portions of this note were transcribed by Kavitha Sanchez. I,Dr. Echavarria, personally performed the history,physical exam and medical decision-making;I reviewed and confirmed the accuracy of the information in the transcribed note. Signed by Karley Morales. 04/27/17 copies to: Chiqui Dalal Ben M MD Apr 28, 2017 14:43 Kavitha Sanchez Apr 28, 2017 15:07
--- NOTE | 2017-04-28 15:36 | DRSVH ---
PROCEDURE: X-RAY RIGHT ANKLE, MINIMUM THREE VIEWS ([id number]) INDICATIONS: trauma TECHNIQUE: 3 views of the ankle were acquired. COMPARISON: [facility], CR, XR FOOT 3VW RT, 03/20/2017, 21:31. FINDINGS: Bones: There is a minimally displaced distal fibular fracture. In addition, minimally displaced media l malleolar fracture is also present. Addition, there is suspicion of a nondisplaced posterior malleo lar fracture. Soft tissues: Effusion is present surrounding the ankle joint. Achilles tendon appears normal. IMPRESSION: Bimalleolar fracture with suspicion of posterior malleolar fracture as above. Dictated by: Arabella Moore M.D. on 04/28/2017 at 15:32 Approved by: Arabella Moore M.D. on 04/28/2017 at 15:34
[2017-04-28] MEDS ORDERED: Propofol 10 mg/mL 20 mL Inj IVPUSH ONE (17:25)
[2017-04-28] MEDS ORDERED: HYDR-4003 PO (18:02)
--- NOTE | 2017-04-28 18:10 | DRSVH ---
PROCEDURE: X-RAY RIGHT ANKLE, MINIMUM THREE VIEWS ([id number]) INDICATIONS: post reduction TECHNIQUE: 3 views of the ankle were acquired. COMPARISON: [facility], CR, XR ANKLE 3VW RT, 04/28/2017, 14:53. FINDINGS: Bones: There is been interval reduction of previous lateral and medial malleoli fractures. There is r elatively unchanged appearance of diastases within the medial malleolus fracture on lateral view. The re is improved alignment of the lateral malleolus fracture. Posterior malleolar fracture is unchanged . Soft tissues: Fusion is present at the ankle joint. Achilles tendon appears normal. IMPRESSION: Post reduction of trimalleolar fracture as above. Dictated by: Arabella Moore M.D. on 04/28/2017 at 18:08 Approved by: Arabella Moore M.D. on 04/28/2017 at 18:09
[2017-04-28] MEDS ORDERED: HYDROcodone-APAP 10-325 mg PO ONE (18:30)
[2017-04-28 18:51] VITALS: BP 138/82; PULSE 97; RESP 22; O2SAT 100
== END 2017-04-28 19:45 | disposition home or self-care (01) ==
LOC: EDBD 13:41 → SED 13:41
DX: S82.841A Displaced bimalleolar fracture of right lower leg, initial encounter for closed fracture (principal); W19.XXXA Unspecified fall, initial encounter; Y93.89 Activity, other specified; Y92.009 Unspecified place in unspecified non-institutional (private) residence as the place of occurrence of the external cause; Y99.8 Other external cause status
CPT/HCPCS: 27810; 73610; 94799; 96372; 99152; 99153; 99285; J1885; J2704